=== PATIENT | female | born 1990 | race Caucasian/White ===

== ENCOUNTER 2016-10-20 13:40 | Emergency (ER) | payer SELFPAY ==
[2016-10-20] MEDS ORDERED: OXYCODONE-ACETAMINOPHEN 5-325 MG TABLET PO ONE (15:11)
--- NOTE | 2016-10-20 15:12 | ER Document Report ---
ED Medical Screen (RME) - General Chief Complaint: Flank Pain Stated Complaint: FLANK PAIN Time seen by provider: 15:10 Mode of Arrival: Ambulatory Information source: Patient TRAVEL OUTSIDE OF THE [place] IN LAST 30 DAYS: No - HPI Patient complains to provider of: RIGHT KIDNEY PAIN Onset: Other - 2 DAYS AGO Onset/Duration: Sudden Quality of pain: Sharp, Stabbing Severity: Moderate Pain Level: 4 Associated Symptoms: Other - RIGHT KIDNEY PAIN. denies: Abdominal pain, Diarrhea, Dysuria, Fever, Nausea, Vomiting Exacerbated by: Denies Relieved by: Denies Similar symptoms previously: Yes Recently seen / treated by doctor: Yes Notes: 10/20/16 15:10 RIGHT KIDNEY SURGERY TWO WEEKS AGO TO REMOVE STENT IN [place]. HX KIDNEY STONES. 10/20/16 15:12 - Related Data Smoking: Cigarettes Frequency of alcohol use: None Drug Abuse: None Allergies/Adverse Reactions: No Known Allergies Allergy (Unverified 10/20/16 14:26) Past Medical History - General Last Menstrual Period: 10/09/2016 - Social History Chew tobacco use (# tins/day): Yes Physical Exam - Vital signs Vitals: Temp Pulse Resp BP Pulse Ox 98.2 F 92 16 140/93 H 100 10/20/16 13:56 10/20/16 13:56 10/20/16 13:56 10/20/16 13:56 10/20/16 13:56 Course - Vital Signs Vital signs: Temp Pulse Resp BP Pulse Ox 98.2 F 92 16 140/93 H 100 10/20/16 13:56 10/20/16 13:56 10/20/16 13:56 10/20/16 13:56 10/20/16 13:56
[2016-10-20 16:08] LABS: APPEARANCE,URINE SLIGHTLY-CLOUDY; BILIRUBIN,URINE NEGATIVE (NEGATIVE); GLUCOSE, URINE NEGATIVE (NEGATIVE); KETONES,URINE NEGATIVE (NEGATIVE); LEUKOCYTE ESTERASE,URINE NEGATIVE (NEGATIVE); NITRITE,URINE NEGATIVE (NEGATIVE); PROTEIN,URINE NEGATIVE (NEGATIVE); URINE SPECIFIC GRAVITY 1.027; UROBILINOGEN,URINE NEGATIVE mg/dL (<2.0)
[2016-10-20] MEDS ORDERED: KETOROLAC TROMETHAMINE 60 MG/2 ML SDV IM ONE (19:22)
[2016-10-20] MEDS ORDERED: HYDROCODONE/ACETAMINOPHEN 5-325 MG 6 TAB/DSPK PO PRN (19:22)
--- NOTE | 2016-10-20 19:23 | ER Document Report ---
ED General - General Chief Complaint: Flank Pain Stated Complaint: FLANK PAIN Mode of Arrival: Ambulatory Notes: Patient is a 25-year-old female past history of recurrent nephrolithiasis who presents with 2 days of right flank pain. Described the pain as intermittent, dull, aching pain. Nothing improves or worsens the pain. States this does not feel as intense as prior kidney stones. Of note, she had a nephrostomy tube removed 2 weeks ago. She has not been able to follow-up with her urologist. She denies any nausea, vomiting, diaphoresis, hematuria, or dysuria. No abdominal pain. She states she's had similar symptoms in the past after kidney stone interventions and that her urologist told her that she may have several particles of stone that would continue to pass after the surgery. TRAVEL OUTSIDE OF THE [place] IN LAST 30 DAYS: No - Related Data Allergies/Adverse Reactions: No Known Allergies Allergy (Unverified 10/20/16 14:26) Past Medical History - General Information source: Patient Last Menstrual Period: 10-09-2016 - Social History Smoking Status: Current Some Day Smoker Cigarette use (# per day): Yes - 1-2 cig/day Chew tobacco use (# tins/day): No Frequency of alcohol use: None Drug Abuse: None Lives with: Spouse/Significant other Family History: Reviewed & Not Pertinent Patient has suicidal ideation: No Patient has homicidal ideation: No Renal/ Medical History: Reports: Hx Kidney Stones Psychiatric Medical History: Reports: Hx Attention Deficit Hyperactivity Disorder, Hx Bipolar Disorder Past Surgical History: Reports: Hx Kidney (Renal Surgery) - Immunizations Hx Diphtheria, Pertussis, Tetanus Vaccination: Yes Review of Systems - Review of Systems Notes: Constitutional: Negative for fever. HENT: Negative for sore throat. Eyes: Negative for visual changes. Cardiovascular: Negative for chest pain. Respiratory: Negative for shortness of breath. Gastrointestinal: Negative for abdominal pain, vomiting or diarrhea. Genitourinary: Negative for dysuria. Musculoskeletal: Negative for back pain. Positive for right flank pain Skin: Negative for rash. Neurological: Negative for headaches, weakness or numbness. 10 point ROS negative except as marked above and in HPI. Physical Exam - Vital signs Vitals: Temp Pulse Resp BP Pulse Ox 98.2 F 92 16 140/93 H 100 10/20/16 13:56 10/20/16 13:56 10/20/16 13:56 10/20/16 13:56 10/20/16 13:56 Interpretation: Hypertensive Notes: PHYSICAL EXAMINATION: GENERAL: Well-appearing, well-nourished and in no acute distress. HEAD: Atraumatic, normocephalic. EYES: Pupils equal round and reactive to light, extraocular movements intact, sclera anicteric, conjunctiva are normal. ENT: nares patent, oropharynx clear without exudates. Moist mucous membranes. NECK: Normal range of motion, supple without lymphadenopathy LUNGS: Breath sounds clear to auscultation bilaterally and equal. No wheezes rales or rhonchi. HEART: Regular rate and rhythm without murmurs ABDOMEN: Soft, nontender, normoactive bowel sounds. No guarding, no rebound. No masses appreciated. Mild right CVA tenderness EXTREMITIES: Normal range of motion, no pitting or edema. No cyanosis. NEUROLOGICAL: No focal neurological deficits. Moves all extremities spontaneously and on command. PSYCH: Normal mood, normal affect. SKIN: Warm, Dry, normal turgor, no rashes or lesions noted. Course - Re-evaluation Re-evalutation: 10/21/16 02:33 Patient presents with concerns of intermittent right flank pain but is otherwise very well in appearance. Mild tenderness on palpation. She has normal vital signs, and is otherwise very well appearance on exam. Urinalysis without evidence of pyuria or hematuria.Abdominal exam is benign without any focal tenderness. Vitals are normal at the time of arrival. Based on clinical history and examination I do not suspect an acute appendicitis, tubo- ovarian abscess, related pathology, pelvic inflammatory disease, mesenteric ischemia, or pyelonephritis. I discussed proceeding with CT scan versus watchful waiting at home with close return precautions and the patient with her fianc at the bedside have agreed to avoid CT imaging at this time as she has had many of these in the past and her exam, urine and history are not consistent with infected stone at this time. I encouraged her to follow closely with her urologist.At this time will discharge with return precautions and follow-up recommendations. Verbal discharge instructions given a the bedside and opportunity for questions given. Medication warnings reviewed. Patient is in agreement with this plan and has verbalized understanding of return precautions and the need for primary care follow-up in the next 24-72 hours. - Vital Signs Vital signs: Temp Pulse Resp BP Pulse Ox 98.0 F 91 18 143/88 H 99 10/20/16 20:00 10/20/16 20:00 10/20/16 20:00 10/20/16 20:00 10/20/16 20:00 Discharge - Discharge Clinical Impression: Right flank pain Condition: Good Disposition: HOME, SELF-CARE Additional Instructions: You were seen today for pain in the right low back. The exact cause of this time is unclear but may be related to your prior kidney stones or the muscles in your low back. Your urine is normal and the remainder of your physical evaluation is reassuring at this time. Since we have not done a CT scan today or blood work, I believe it is very important that you return to emergency department immediately for any new or worsening symptoms including vomiting, fever greater than 100.4, chills, body aches, passing out, or any other symptoms that are worrisome to you. Follow-up with your urologist as scheduled and return to the emergency department immediately for any new or worsening symptoms. Forms: Elevated Blood Pressure
[2016-10-20 20:11] VITALS: BP 143/88
== END 2016-10-20 20:08 | disposition home or self-care (01) ==
LOC: ER 13:40
DX: R10.9 Unspecified abdominal pain (principal); F17.210 Nicotine dependence, cigarettes, uncomplicated; Z87.442 Personal history of urinary calculi; Z98.890 Other specified postprocedural states
CPT/HCPCS: 99284; 96372; 81025; 81001; J1885

== ENCOUNTER 2017-05-17 08:10 | Emergency (ER) | payer SELFPAY ==
[2017-05-17] MEDS ORDERED: KETOROLAC TROMETHAMINE 60 MG/2 ML SDV IM ONE (08:21)
--- NOTE | 2017-05-17 08:40 | ER Document Report ---
ED General - General Chief Complaint: Flank Pain Stated Complaint: FLANK PAIN Time Seen by Provider: 05/17/17 08:20 Mode of Arrival: Ambulatory Information source: Patient Notes: 26-year-old presents with complaints of right flank pain just prior to arrival. Patient notes that in the past few months she has had multiple interventions including lithotripsy stent placement for previous stones. Patient has had multiple CAT scans recently. Patient denies any fever chills nausea vomiting or diarrhea. Patient admits to only right flank pain radiating to the groin TRAVEL OUTSIDE OF THE [place] IN LAST 30 DAYS: No - HPI Onset: Just prior to arrival Onset/Duration: Sudden Quality of pain: Achy Severity: Mild Pain Level: 1 Associated symptoms: Other Exacerbated by: Denies Relieved by: Denies Similar symptoms previously: Yes Recently seen / treated by doctor: Yes - Related Data Allergies/Adverse Reactions: morphine Allergy (Verified 05/17/17 08:14) Past Medical History - Social History Smoking Status: Current Every Day Smoker Cigarette use (# per day): Yes Chew tobacco use (# tins/day): No Smoking Education Provided: No Family History: Reviewed & Not Pertinent Renal/ Medical History: Reports: Hx Kidney Stones. Denies: Hx Peritoneal Dialysis Psychiatric Medical History: Reports: Hx Attention Deficit Hyperactivity Disorder, Hx Bipolar Disorder Past Surgical History: Reports: Hx Kidney (Renal Surgery) - Immunizations Hx Diphtheria, Pertussis, Tetanus Vaccination: Yes Review of Systems - Review of Systems Notes: REVIEW OF SYSTEMS: CONSTITUTIONAL : Denies fever, chills, or sweats. Denies recent illness. EENT: Denies eye, ear, throat, or mouth pain or symptoms. Denies nasal or sinus congestion or discharge. Denies throat, tongue, or mouth swelling or difficulty swallowing. CARDIOVASCULAR: Denies chest pain. Denies palpitations or racing or irregular heart beat. Denies ankle edema. RESPIRATORY: Denies cough, cold, or chest congestion. Denies shortness of breath, difficulty breathing, or wheezing. GASTROINTESTINAL: Admits to right flank pain. GENITOURINARY: Denies difficulty urinating, painful urination, burning, frequency, blood in urine, or discharge. MUSCULOSKELETAL: Denies back or neck pain or stiffness. Denies joint pain or swelling. SKIN: Denies rash, lesions or sores. HEMATOLOGIC : Denies easy bruising or bleeding. LYMPHATIC: Denies swollen, enlarged glands. NEUROLOGICAL: Denies confusion or altered mental status. Denies passing out or loss of consciousness. Denies dizziness or lightheadedness. Denies headache. Denies weakness or paralysis or loss of use of either side. Denies problems with gait or speech. Denies sensory loss, numbness, or tingling. Denies seizures. PSYCHIATRIC: Denies anxiety or stress. Denies depression, suicidal ideation, or homicidal ideation. ALL OTHER SYSTEMS REVIEWED AND NEGATIVE. PHYSICAL EXAMINATION: GENERAL: Well-appearing, well-nourished and in no acute distress. HEAD: Atraumatic, normocephalic. EYES: Pupils equal round and reactive to light, extraocular movements intact, conjunctiva are normal. ENT: Nares patent, oropharynx clear without exudates. Moist mucous membranes. NECK: Normal range of motion, supple without lymphadenopathy LUNGS: Breath sounds clear to auscultation bilaterally and equal. No wheezes rales or rhonchi. HEART: Regular rate and rhythm without murmurs ABDOMEN: Soft, nontender, nondistended abdomen. No guarding, no rebound. No masses appreciated. Mild right CVA tenderness Female : deferred Musculoskeletal: Normal range of motion, no pitting or edema. No cyanosis. NEUROLOGICAL: Cranial nerves grossly intact. Normal speech, normal gait. Normal sensory, motor exams PSYCH: Normal mood, normal affect. SKIN: Warm, Dry, normal turgor, no rashes or lesions noted. Dictation was performed using [employer] voice recognition software Physical Exam - Vital signs Vitals: Temp Pulse Resp BP Pulse Ox 97.6 F 79 14 146/96 H 100 05/17/17 08:14 05/17/17 08:14 05/17/17 08:14 05/17/17 08:14 05/17/17 08:14 Course - Re-evaluation Re-evalutation: 05/17/17 08:40 Physical examination is most consistent with a stone, I am concerned about radiation with this patient given that she has had multiple CTs recently, lab work is pending at this time otherwise she does not appear to be in any distress 05/17/17 10:03 Patient does have mild white count elevation which would be consistent with pain , urinalysis otherwise is clear except for calcium oxalate crystals. Which would be consistent with a kidney stone. There is no sign of infection there is no blood in the urine patient has no renal insufficiency therefore I believe imaging is not appropriate at this time with a significant history of imaging he has had in the past. Patient will be given follow-up with primary care physician and with his own urologist Dr. stevenson After performing a Medical Screening Examination, I estimate there is LOW risk for ACUTE APPENDICITIS, BOWEL OBSTRUCTION, ACUTE CHOLECYSTITIS, PERFORATED DIVERTICULITIS, INCARCERATED HERNIA, PANCREATITIS, or PERFORATED ULCER, thus I consider the discharge disposition reasonable. Also, there is no evidence or peritonitis, sepsis, or toxicity. I have reevaluated this patient multiple times and no significant life threatening changes are noted. The patient and I have discussed the diagnosis and risks, and we agree with discharging home with close follow-up with the understanding that symptoms and presentations can change. We also discussed returning to the Emergency Department immediately if new or worsening symptoms occur. We have discussed the symptoms which are most concerning (e.g., bloody stool, fever, changing or worsening pain, intractable vomiting - standard verbal up date) that necessitate immediate return. - Vital Signs Vital signs: Temp Pulse Resp BP Pulse Ox 97.6 F 79 14 146/96 H 100 05/17/17 08:14 05/17/17 08:14 05/17/17 08:14 05/17/17 08:14 05/17/17 08:14 - Laboratory Result Diagrams: 05/17/17 08:45 05/17/17 08:45 Laboratory results interpreted by me: 05/17/17 08:45 WBC 14.3 H Hgb 15.8 H Absolute Neutrophils 8.4 H Discharge - Discharge Clinical Impression: Flank pain, History of kidney stones Condition: Stable Disposition: HOME, SELF-CARE Instructions: Kidney Stone ([facility]) Additional Instructions: Follow up with your physician tomorrow for further care or return to the ED IMMEDIATELY if symptoms worsen or new concerns occur. If you cannot afford to follow up with your primary care physician a list of low cost clinics have been provided at the end of your discharge papers as well. Prescriptions: Hydrocodone/Acetaminophen [[place] 5-325 mg Tablet] 1 tab PO Q6 #14 tablet Metoclopramide HCl [Reglan 10 mg Tablet] 1 - 2 tab PO ASDIR PRN #25 tablet PRN Reason: Tamsulosin HCl [Flomax 0.4 mg Cap.sr] 0.4 mg PO DAILY #7 cap.sr.24h
[2017-05-17 08:58] LABS: ABSOLUTE BASOPHILS # (AUTO) 0.1 10^3/uL (0.0-0.2); ABSOLUTE EOSINOPHILS # (AUTO) 0.4 10^3/uL (0.0-0.6); ABSOLUTE LYMPHOCYTES (AUTO) 4.6 10^3/uL (0.5-4.7); ABSOLUTE MONOCYTES (AUTO) 0.8 10^3/uL (0.1-1.4); ABSOLUTE NEUT (AUTO) 8.4 10^3/uL (1.7-8.2); BASOPHILS % (AUTO) 0.9 % (0-2); EOSINOPHILS % (AUTO) 3.1 % (0-6); HEMATOCRIT 45.8 % (36.0-47.0); HEMOGLOBIN 15.8 g/dL (12.0-15.5); HGB HCT DIFFERENCE 1.6; MEAN CORPUSCULAR HGB CONC 34.6 g/dL (32.0-36.0); MEAN CORPUSCULAR VOLUME 92 fl (80-97); MONOCYTES % (AUTO) 5.5 % (3-13); RED BLOOD COUNT 4.95 10^6/uL (3.72-5.28); RED CELL DISTRIBUTION WIDTH 12.7 % (11.5-14.0); SEGMENTED NEUTROPHILS % (AUTO) 58.5 % (42-78); WHITE BLOOD COUNT 14.3 10^3/uL (4.0-10.5)
[2017-05-17] MEDS ORDERED: NORMAL SALINE 1000 ML 1,000 ML IV ONE (09:04)
[2017-05-17] MEDS ORDERED: ONDANSETRON HCL INJ/PF 4 MG/2 ML SDV IV ONE (09:04)
[2017-05-17 09:17] LABS: ALANINE AMINOTRANSFERASE 17 U/L (9-52); ALBUMIN 4.1 g/dL (3.5-5.0); ALKALINE PHOSPHATASE 76 U/L (38-126); ANION GAP 10 (5-19); APPEARANCE,URINE SLIGHTLY-CLOUDY; ASPARTATE AMINO TRANSFERASE 30 U/L (14-36); BILIRUBIN,DIRECT 0.3 mg/dL (0.0-0.4); BILIRUBIN,TOTAL 0.5 mg/dL (0.2-1.3); BILIRUBIN,URINE NEGATIVE (NEGATIVE); BLOOD UREA NITROGEN 12 mg/dL (7-20); CALCIUM 9.3 mg/dL (8.4-10.2); CALCIUM OXALATE CRYSTALS,URINE RARE /HPF; CARBON DIOXIDE 26 mmol/L (22-30); CHLORIDE 104 mmol/L (98-107); CREATININE RESULT 0.87 mg/dL (0.52-1.25); GLUCOSE 90 mg/dL (75-110); GLUCOSE, URINE NEGATIVE (NEGATIVE); KETONES,URINE NEGATIVE (NEGATIVE); LEUKOCYTE ESTERASE,URINE NEGATIVE (NEGATIVE); NITRITE,URINE NEGATIVE (NEGATIVE); POTASSIUM 4.2 mmol/L (3.6-5.0); PROTEIN,URINE NEGATIVE (NEGATIVE); SODIUM 139.8 mmol/L (137-145); TOTAL PROTEIN 7.2 g/dL (6.3-8.2); URINE SPECIFIC GRAVITY 1.015; UROBILINOGEN,URINE NEGATIVE mg/dL (<2.0)
[2017-05-17 10:04] VITALS: BP 116/79
== END 2017-05-17 10:15 | disposition home or self-care (01) ==
LOC: ER 08:10
DX: R10.9 Unspecified abdominal pain (principal); F17.210 Nicotine dependence, cigarettes, uncomplicated
CPT/HCPCS: 99284; 96372; 96361; 96374; 36415; 85025; 81025; 80053; 81001; J1885; J2405; J7030

== ENCOUNTER 2017-06-13 22:25 | Emergency (ER) | payer SELFPAY ==
[2017-06-13] MEDS ORDERED: KETOROLAC TROMETHAMINE INJ/PF 30 MG/1 ML SDV IV ONE (23:33)
[2017-06-14] MEDS ORDERED: KETOROLAC TROMETHAMINE 60 MG/2 ML SDV IM ONE (00:10)
[2017-06-14] MEDS ORDERED: NORMAL SALINE 1000 ML 1,000 ML IV ONE ×2 (00:11)
--- NOTE | 2017-06-14 00:13 | ER Document Report ---
ED Medical Screen (RME) - General Chief Complaint: Possible Kidney Stone Stated Complaint: FLANK PAIN Time Seen by Provider: 06/14/17 00:09 Notes: 26-year-old female that prefers to be addressed as an male that comes emergency department for chief complaint of bilateral flank pain, worse on the right compared to the left, right flank pain started 2 weeks ago, left flank pain started a few days ago. Reports nausea but denies vomiting. Denies fever. Reports some difficulty and discomfort urinating. Has a urologist, has had previous stents, sees urology in [place]. Denies abdominal pain, denies other areas of pain. TRAVEL OUTSIDE OF THE [place] IN LAST 30 DAYS: No - Related Data Allergies/Adverse Reactions: morphine Allergy (Verified 05/17/17 08:14) Past Medical History Renal/ Medical History: Reports: Hx Kidney Stones. Denies: Hx Peritoneal Dialysis Psychiatric Medical History: Reports: Hx Attention Deficit Hyperactivity Disorder, Hx Bipolar Disorder Past Surgical History: Reports: Hx Kidney (Renal Surgery) - Immunizations Hx Diphtheria, Pertussis, Tetanus Vaccination: Yes Physical Exam - Vital signs Vitals: Temp Pulse Resp BP Pulse Ox 98 F 115 H 20 155/98 H 98 06/13/17 23:07 06/13/17 23:07 06/13/17 23:07 06/13/17 23:07 06/13/17 23:07 - General General appearance: Appears well In distress: None - Back Back: Tender - Tenderness worse on the right compared to left, however no tenderness is noted to be considerable Course - Re-evaluation Re-evalutation: Patient was initially tachycardic, however well-appearing, taking 5-10 mg of oxycodone every 4 hours. - Vital Signs Vital signs: Temp Pulse Resp BP Pulse Ox 98 F 115 H 20 155/98 H 98 06/13/17 23:07 06/13/17 23:07 06/13/17 23:07 06/13/17 23:07 06/13/17 23:07
[2017-06-14] MEDS ORDERED: ONDANSETRON 4 MG TAB.RAPDIS PO ONE (00:15)
[2017-06-14 00:28] LABS: ABSOLUTE BASOPHILS # (AUTO) 0.1 10^3/uL (0.0-0.2); ABSOLUTE EOSINOPHILS # (AUTO) 1.1 10^3/uL (0.0-0.6); ABSOLUTE NEUT (AUTO) 10.4 10^3/uL (1.7-8.2); BASOPHILS % (AUTO) 0.6 % (0-2); EOSINOPHILS % (AUTO) 6.3 % (0-6); HEMATOCRIT 50.8 % (36.0-47.0); HEMOGLOBIN 17.5 g/dL (12.0-15.5); HGB HCT DIFFERENCE 1.7; LYMPHOCYTES % (AUTO) 28.4 % (13-45); MEAN CORPUSCULAR HEMOGLOBIN 32.6 pg (27.0-33.4); MEAN CORPUSCULAR HGB CONC 34.6 g/dL (32.0-36.0); MEAN CORPUSCULAR VOLUME 94 fl (80-97); MONOCYTES % (AUTO) 5.8 % (3-13); RED BLOOD COUNT 5.38 10^6/uL (3.72-5.28); RED CELL DISTRIBUTION WIDTH 12.6 % (11.5-14.0); SEGMENTED NEUTROPHILS % (AUTO) 58.9 % (42-78); WHITE BLOOD COUNT 17.7 10^3/uL (4.0-10.5)
[2017-06-14 00:38] LABS: APPEARANCE,URINE CLOUDY; BILIRUBIN,URINE SMALL (NEGATIVE); CALCIUM OXALATE CRYSTALS,URINE MANY /HPF; GLUCOSE, URINE NEGATIVE (NEGATIVE); KETONES,URINE TRACE mg/dL (NEGATIVE); LEUKOCYTE ESTERASE,URINE TRACE (NEGATIVE); NITRITE,URINE NEGATIVE (NEGATIVE); PROTEIN,URINE 30 mg/dL (NEGATIVE); URINE SPECIFIC GRAVITY 1.035
[2017-06-14 00:48] LABS: ANION GAP 14 (5-19); BLOOD UREA NITROGEN 20 mg/dL (7-20); CALCIUM 10.4 mg/dL (8.4-10.2); CARBON DIOXIDE 23 mmol/L (22-30); CHLORIDE 104 mmol/L (98-107); CREATININE RESULT 1.32 mg/dL (0.52-1.25); GLUCOSE 88 mg/dL (75-110); POTASSIUM 4.3 mmol/L (3.6-5.0); SODIUM 140.8 mmol/L (137-145)
--- NOTE | 2017-06-14 01:31 | RADIOLOGY REPORT (SQ) ---
EXAM DESCRIPTION: [employer] COMPLETED DATE/TIME: 06/14/2017 12:42 am REASON FOR STUDY: flank pain, eval stones and hydro COMPARISON: None. TECHNIQUE: Dynamic and static grayscale images acquired of the kidneys and bladder and recorded on P ACS. Additional selected color Doppler and spectral images recorded. LIMITATIONS: None. FINDINGS: RIGHT KIDNEY: 12.7 cm right kidney with indeterminate 2.0 cm hypoechoic area with possibl e vascularity. LEFT KIDNEY: 11.2 cm. 1.5 cm stone. BLADDER: No masses. Ureteral jet flow not demonstrated, a nonspecific finding. OTHER FINDINGS: No other significant finding. IMPRESSION: 1. Indeterminate 2.0 cm hypoechoic area of the right kidney; further evaluation with co ntrast CT of the kidneys recommended. 2. 1.5 cm left nephrolithiasis. TECHNICAL DOCUMENTATION: JOB ID: [id number] [employer]- All Rights Reserved
[2017-06-14] MEDS ORDERED: FENTANYL CITRATE INJ/PF 100 MCG/2 ML AMPUL IV ONE ×2 (01:36→03:50)
[2017-06-14] MEDS ORDERED: CEFTRIAXONE INJ 1000 MG VIAL IV ONE (01:36)
--- NOTE | 2017-06-14 01:41 | ER Document Report ---
ED General - General Chief Complaint: Possible Kidney Stone Stated Complaint: FLANK PAIN Time Seen by Provider: 06/14/17 00:09 Notes: Patient is a 26-year-old female who presents with complaints of pain in both kidneys. Pain is worse in the left side. Pain does radiate around flank. She does have history of kidney stones and with urostomy tube placed in the past as well as stents. No fevers. Some nausea. No vomiting. No diarrhea. Some difficulty urinating. No other complaints at this time. TRAVEL OUTSIDE OF THE [place] IN LAST 30 DAYS: No - Related Data Allergies/Adverse Reactions: morphine Allergy (Verified 05/17/17 08:14) Past Medical History - Social History Smoking Status: Never Smoker Frequency of alcohol use: None Drug Abuse: None Family History: Reviewed & Not Pertinent Patient has suicidal ideation: No Patient has homicidal ideation: No Renal/ Medical History: Reports: Hx Kidney Stones. Denies: Hx Peritoneal Dialysis Psychiatric Medical History: Reports: Hx Attention Deficit Hyperactivity Disorder, Hx Bipolar Disorder Past Surgical History: Reports: Hx Kidney (Renal Surgery) - Immunizations Hx Diphtheria, Pertussis, Tetanus Vaccination: Yes Review of Systems - Review of Systems Notes: My Normal Review Basic REVIEW OF SYSTEMS: CONSTITUTIONAL : Denies fever, chills, or sweats. Denies recent illness. RESPIRATORY: Denies cough, cold, or chest congestion. Denies shortness of breath, difficulty breathing, or wheezing. GASTROINTESTINAL: Denies abdominal pain. Denies nausea, vomiting, or diarrhea. Denies constipation. Last BM: GENITOURINARY: Back and flank pain. MUSCULOSKELETAL: Denies neck or back pain or joint pain or swelling. SKIN: Denies rash or skin lesions. NEUROLOGICAL: Denies altered mental status or loss of consciousness. Denies headache. Denies weakness or paralysis or loss of use of either side. Denies problems with gait or speech. Denies sensory or motor loss. ALL OTHER SYSTEMS REVIEWED AND NEGATIVE. Physical Exam - Vital signs Vitals: Temp Pulse Resp BP Pulse Ox 98 F 115 H 20 155/98 H 98 06/13/17 23:07 06/13/17 23:07 06/13/17 23:07 06/13/17 23:07 06/13/17 23:07 - Notes Notes: General Appearance: Well nourished, alert, cooperative, no acute distress, moderate obvious discomfort. Vitals: reviewed, See vital signs table. Head: no swelling or tenderness to the head Eyes: PERRL, EOMI, Conjuctiva clear Lungs: No wheezing, No rales, No rhonci, No accessory muscle use, good air exchange bilaterally. Heart: Normal rate, Regular rythm, No murmur, no rub Abdomen: Normal BS, soft, No rigidity, No reproducible abdominal tenderness palpation., No guarding, no rebound, no abdominal masses, no organomegaly Back: Mild pain with tapping over left lower back. No pain over right lower back. Extremities: strength 5/5 in all extremities, good pulses in all extremities, no swelling or tenderness in the extremities, no edema. Skin: warm, dry, appropriate color, no rash Neuro: speech clear, oriented x 3, normal affect, responds appropriately to questions. Course - Re-evaluation Re-evalutation: 06/14/17 04:19 CT scan does not show evidence of intraureteral stone or obstructing stone. Patient will be treated for infection. CT scan does show the lobulated kidney that they request follow-up on. Patient does have a urologist in [place]. I will have her follow-up with her neurologist [place]. I did make a copy of her CT scan on CD so she can take this with her to her appointment. Patient encouraged to return to ER if she is fevers, intractable pain, intractable vomiting, or feels unwell. Patient agrees with plan will be discharged home. Dictation of this chart was performed using voice recognition software; therefore, there may be some unintended grammatical errors. - Vital Signs Vital signs: Temp Pulse Resp BP Pulse Ox 98 F 115 H 20 155/98 H 98 06/13/17 23:07 06/13/17 23:07 06/13/17 23:07 06/13/17 23:07 06/13/17 23:07 - Laboratory Result Diagrams: 06/13/17 23:45 06/13/17 23:45 Laboratory results interpreted by me: 06/13/17 06/13/17 06/13/17 23:45 23:45 23:50 WBC 17.7 H RBC 5.38 H Hgb 17.5 H Hct 50.8 H Eosinophils % 6.3 H Absolute Neutrophils 10.4 H Absolute Lymphocytes 5.0 H Absolute Eosinophils 1.1 H Creatinine 1.32 H Est GFR ( Amer) 58 L Est GFR (Non-Af Amer) 48 L Calcium 10.4 H Urine Protein 30 H Urine Ketones TRACE H Urine Bilirubin SMALL H Urine Urobilinogen 2.0 H Ur Leukocyte Esterase TRACE H Discharge - Discharge Clinical Impression: UTI (urinary tract infection) Qualifiers: Urinary tract infection type: site unspecified Hematuria presence: without hematuria Qualified Code(s): N39.0 - Urinary tract infection, site not specified Condition: Good Disposition: HOME, SELF-CARE Additional Instructions: Your CT scan did not show any evidence of stones in the ureter. Your CT scan did show that your kidney is somewhat lobulated in appearance. This could be resultant of your multiple stones procedures performed on your kidney in the past. It is still very important that you follow-up with your urologist in regard to this. I will print off a copy of your CT scan so he can bring it to her urologist. Please return to ER immediately if you have fevers, vomiting, or worsening of your symptoms. He is call your urologist for close follow-up appointment. Please bring the copy of the CT scan with you to your appointment. Prescriptions: Cephalexin Monohydrate [Keflex 500 mg Capsule] 500 mg PO Q6H 7 Days capsule Oxycodone HCl/Acetaminophen [Percocet 5-325 mg Tablet] 1 tab PO ASDIR PRN #15 tab PRN Reason: Forms: Return to Work
--- NOTE | 2017-06-14 03:34 | RADIOLOGY REPORT (SQ) ---
EXAM DESCRIPTION: CT LTD RENAL STONE PROTOCOL ON COMPLETED DATE/TIME: 06/14/2017 2:44 am REASON FOR STUDY: bilateral flank pain, history of kidney stones COMPARISON: Ultrasound, renal, 06/14/2017. TECHNIQUE: CT scan of the abdomen and pelvis performed without intravenous or oral contrast. Images reviewed with lung, soft tissue, and bone windows. Reconstructed coronal and sagittal MPR images revi ewed. All images stored on PACS. All CT scanners at this facility use dose modulation, iterative reconstruction, and/or weight based d osing when appropriate to reduce radiation dose to as low as reasonably achievable (ALARA). [facility]: Dose Right [facility]: CareDose [facility]: Dose Right [facility]: Teradose 4D [facility]: Smart Siminars RADIATION DOSE: Up-to-date CT equipment and radiation dose reduction techniques were employed. CTDIv ol: 18.6 mGy. DLP: 1003 mGy-cm.mGy. LIMITATIONS: None. FINDINGS: LOWER CHEST: No significant findings. No nodules or infiltrates. NON-CONTRASTED LIVER, SPLEEN, ADRENALS: Evaluation limited by lack of IV contrast. No identified sign ificant masses. PANCREAS: No masses. No peripancreatic inflammatory changes. GALLBLADDER: No identified stones by CT criteria. No inflammatory changes to suggest cholecystitis. RIGHT KIDNEY AND URETER: 2.5 cm indeterminate macro lobulation of the upper pole of the right kidney and recent abnormal right renal sonogram from the same day. 1.0 cm right renal stone. Left-sided ca liceal stone measures up to 0.7 cm. LEFT KIDNEY AND URETER: 1.7 cm exophytic macro lobulation of the upper pole of the left kidney. 1.0 cm exophytic lesion of the inferior pole of the left kidney posteriorly. Assessment limited by lack of IV contrast. No significant calcifications. No hydronephrosis or hydroureter. Small cortical scar. AORTA AND RETROPERITONEUM: No aneurysm. No retroperitoneal masses or adenopathy. BOWEL AND PERITONEAL CAVITY: No obvious masses or inflammatory changes. No free fluid. APPENDIX: Normal. PELVIS, BLADDER, AND ABDOMINAL WALL:No abnormal masses. No free fluid. Bladder normal. BONES: No significant findings. OTHER: No other significant finding. IMPRESSION: 1. Indeterminate bilateral renal lesions/ macro lobulation. Dynamic contrast CT of the kidneys recommended. 2. Bilateral nephrolithiasis, uncomplicated. TECHNICAL DOCUMENTATION: JOB ID: [id number] Quality ID # [id number]: Final reports with documentation of one or more dose reduction techniques (e.g., Au tomated exposure control, adjustment of the mA and/or kV according to patient size, use of iterative reconstruction technique) 2010 [employer]- All Rights Reserved
[2017-06-14 05:42] VITALS: BP 137/91
== END 2017-06-14 04:42 | disposition home or self-care (01) ==
LOC: ER 22:25
DX: N39.0 Urinary tract infection, site not specified (principal); R10.9 Unspecified abdominal pain; R11.0 Nausea; Z87.442 Personal history of urinary calculi
CPT/HCPCS: 96376; 96375; 99284; 96372; 96365; 36415; 87086; 85025; 80048; 81001; 76775; 76380; J1885; S0119; J3010; J0696; J7030

== ENCOUNTER 2017-06-21 23:26 | Emergency (ER) | payer SELFPAY ==
[2017-06-21] MEDS ORDERED: KETOROLAC TROMETHAMINE INJ/PF 30 MG/1 ML SDV IV ONE (23:54)
[2017-06-21] MEDS ORDERED: FENTANYL CITRATE INJ/PF 100 MCG/2 ML AMPUL IV PRN (23:55)
[2017-06-22 00:13] LABS: APPEARANCE,URINE SLIGHTLY-CLOUDY; BILIRUBIN,URINE NEGATIVE (NEGATIVE); CALCIUM OXALATE CRYSTALS,URINE MODERATE /HPF; GLUCOSE, URINE NEGATIVE (NEGATIVE); KETONES,URINE NEGATIVE (NEGATIVE); LEUKOCYTE ESTERASE,URINE NEGATIVE (NEGATIVE); NITRITE,URINE NEGATIVE (NEGATIVE); PROTEIN,URINE 30 mg/dL (NEGATIVE)
--- NOTE | 2017-06-22 00:30 | ER Document Report ---
ED General - General Chief Complaint: Possible Kidney Stone Stated Complaint: BACK PAIN Time Seen by Provider: 06/21/17 23:52 Notes: Patient is a 26-year-old female with past medical history of recurrent kidney stones who presents with bilateral flank pain worse in the left. She was seen here on 14 of June for the same complaints and states that her symptoms have somewhat worsened since that time. She is scheduled to follow-up with her urologist within the next 1 week for further management. She has been taking oxycodone, Toradol and applying heat to the affected areas with moderate improvement in her pain which she does describes a dull, constant aching pain to the bilateral flanks worse in the left. She had denies any associated vomiting, diarrhea or fever. She has not had any hematuria. No significant dysuria. TRAVEL OUTSIDE OF THE [place] IN LAST 30 DAYS: No - Related Data Allergies/Adverse Reactions: aspirin Allergy (Verified 06/21/17 23:35) morphine Allergy (Verified 05/17/17 08:14) Past Medical History - General Information source: Patient - Social History Smoking Status: Current Every Day Smoker Frequency of alcohol use: Occasional Drug Abuse: None Lives with: Spouse/Significant other Family History: Reviewed & Not Pertinent Patient has suicidal ideation: No Patient has homicidal ideation: No Renal/ Medical History: Reports: Hx Kidney Stones. Denies: Hx Peritoneal Dialysis Psychiatric Medical History: Reports: Hx Attention Deficit Hyperactivity Disorder, Hx Bipolar Disorder Past Surgical History: Reports: Hx Kidney (Renal Surgery) - Immunizations Hx Diphtheria, Pertussis, Tetanus Vaccination: Yes Review of Systems - Review of Systems Notes: Constitutional: Negative for fever. HENT: Negative for sore throat. Eyes: Negative for visual changes. Cardiovascular: Negative for chest pain. Respiratory: Negative for shortness of breath. Gastrointestinal: Negative for abdominal pain, vomiting or diarrhea. Positive for bilateral flank pain. Genitourinary: Negative for dysuria. Musculoskeletal: Negative for back pain. Skin: Negative for rash. Neurological: Negative for headaches, weakness or numbness. 10 point ROS negative except as marked above and in HPI. Physical Exam - Vital signs Vitals: Temp Pulse Resp BP Pulse Ox 98 F 110 H 20 137/92 H 99 06/21/17 23:31 06/21/17 23:31 06/21/17 23:31 06/21/17 23:06/21/17 23:31 Interpretation: Tachycardic Notes: PHYSICAL EXAMINATION: GENERAL: Well-appearing, well-nourished and in no acute distress. HEAD: Atraumatic, normocephalic. EYES: Pupils equal round and reactive to light, extraocular movements intact, sclera anicteric, conjunctiva are normal. ENT: nares patent, oropharynx clear without exudates. Moderately dry mucous membranes. NECK: Normal range of motion, supple without lymphadenopathy LUNGS: Breath sounds clear to auscultation bilaterally and equal. No wheezes rales or rhonchi. HEART: Regular rate and rhythm without murmurs ABDOMEN: Soft, nontender, normoactive bowel sounds. No guarding, no rebound. No masses appreciated. Bilateral CVA tenderness worse on the left. EXTREMITIES: Normal range of motion, no pitting or edema. No cyanosis. NEUROLOGICAL: No focal neurological deficits. Moves all extremities spontaneously and on command. PSYCH: Normal mood, normal affect. SKIN: Warm, Dry, normal turgor, no rashes or lesions noted. Course - Re-evaluation Re-evalutation: 06/22/17 00:29 Patient presents with ongoing bilateral flank pain, just seen on the for the same head CT at that time that did not demonstrate any evidence of acute urolithiasis although did show multiple kidney stones bilaterally that were nonobstructing and remained in the kidney. Her urinalysis today does not show any evidence of a associated kidney infection. Will obtain basic labs and further kidney function is not worsening as it was mildly elevated at the last visit. She is scheduled to see her outpatient neurologist next week. Will provide pain control and reassess. Her clinical history is not consistent with an acute pulmonary embolus, acute appendicitis, biliary pathology, bowel obstruction or mesenteric ischemia. 06/22/17 01:12 Laboratories all are improved from the visit on the . Pain has been controlled here in the emergency department. Repeat abdominal exam remains benign. I do not see any indication for repeat CT as patient just had 1 of these completed less than a week ago. Patient is in agreement with this plan. At this time will discharge with return precautions and follow-up recommendations. Verbal discharge instructions given a the bedside and opportunity for questions given. Medication warnings reviewed. Patient is in agreement with this plan and has verbalized understanding of return precautions and the need for follow-up with her urologist at her earliest ability. - Vital Signs Vital signs: Temp Pulse Resp BP Pulse Ox 98.1 F 88 14 132/70 H 99 06/22/17 02:10 06/22/17 02:10 06/22/17 02:10 06/22/17 02:10 06/22/17 02:10 - Laboratory Result Diagrams: 06/22/17 00:35 06/22/17 00:35 Laboratory results interpreted by me: 06/21/17 06/22/17 06/22/17 23:43 00:35 00:35 WBC 14.1 H RBC 5.34 H Hgb 17.3 H Hct 50.0 H Est GFR (Non-Af Amer) 53 L Urine Protein 30 H Urine Blood LARGE H Urine Urobilinogen 2.0 H Discharge - Discharge Clinical Impression: Bilateral flank pain Condition: Good Disposition: HOME, SELF-CARE Additional Instructions: Your laboratories are all improved from when you were last here on the 14 of June. Please return if you develop fever, persistent vomiting, or any other symptoms that are concerning to you. For your pain: Take ibuprofen 600 mg and acetaminophen 1000 mg every 6 hours together as needed for pain. Follow-up with your urologist as scheduled.
[2017-06-22 00:54] LABS: ABSOLUTE BASOPHILS # (AUTO) 0.1 10^3/uL (0.0-0.2); ABSOLUTE EOSINOPHILS # (AUTO) 0.6 10^3/uL (0.0-0.6); ABSOLUTE LYMPHOCYTES (AUTO) 4.5 10^3/uL (0.5-4.7); ABSOLUTE MONOCYTES (AUTO) 0.8 10^3/uL (0.1-1.4); ABSOLUTE NEUT (AUTO) 8.1 10^3/uL (1.7-8.2); BASOPHILS % (AUTO) 0.7 % (0-2); EOSINOPHILS % (AUTO) 4.3 % (0-6); HEMOGLOBIN 17.3 g/dL (12.0-15.5); HGB HCT DIFFERENCE 1.9; MEAN CORPUSCULAR HEMOGLOBIN 32.5 pg (27.0-33.4); MEAN CORPUSCULAR HGB CONC 34.7 g/dL (32.0-36.0); MEAN CORPUSCULAR VOLUME 94 fl (80-97); MONOCYTES % (AUTO) 5.4 % (3-13); RED BLOOD COUNT 5.34 10^6/uL (3.72-5.28); RED CELL DISTRIBUTION WIDTH 13.3 % (11.5-14.0); SEGMENTED NEUTROPHILS % (AUTO) 57.6 % (42-78); WHITE BLOOD COUNT 14.1 10^3/uL (4.0-10.5)
[2017-06-22 01:08] LABS: ANION GAP 14 (5-19); BLOOD UREA NITROGEN 13 mg/dL (7-20); CALCIUM 10.2 mg/dL (8.4-10.2); CARBON DIOXIDE 26 mmol/L (22-30); CHLORIDE 105 mmol/L (98-107); GLUCOSE 86 mg/dL (75-110); POTASSIUM 4.4 mmol/L (3.6-5.0); SODIUM 144.8 mmol/L (137-145)
[2017-06-22 02:11] VITALS: BP 132/70
== END 2017-06-22 02:11 | disposition home or self-care (01) ==
LOC: ER 23:26
DX: R10.9 Unspecified abdominal pain (principal); R00.0 Tachycardia, unspecified; Z87.442 Personal history of urinary calculi; Z98.890 Other specified postprocedural states; F17.200 Nicotine dependence, unspecified, uncomplicated; Z88.6 Allergy status to analgesic agent; Z88.5 Allergy status to narcotic agent
CPT/HCPCS: 99283; 96374; 96375; 36415; 85025; 81025; 80048; 81001; J3010; J1885

== ENCOUNTER 2017-06-26 21:52 | Emergency (ER) | payer SELFPAY ==
--- NOTE | 2017-06-26 22:35 | ER Document Report ---
ED GI/ - General Mode of Arrival: Ambulatory Information source: Patient TRAVEL OUTSIDE OF THE [place] IN LAST 30 DAYS: No - HPI Patient complains to provider of: Flank pain <LUCA MESA - Last Filed: 06/27/17 01:08> <ASHELYARDHA ANN - Last Filed: 06/27/17 10:22> - General Chief Complaint: Possible Kidney Stone Stated Complaint: FLANK PAIN - HPI Notes: Patient is a 26 year old female presenting to the emergency department for left flank pain and nausea. Patient has a history of kidney stones and states that she knows she has some present in her left kidney. Patient was seen in this department for similar symptoms on 06/14/17 and 06/22/17. Patient was told to follow up with Urology. Patient states she is supposed to have surgery this week to have stent placed. Patient was on Cipro but she is not taking this anymore. Patient is taking Flagyl, oxycodone, and ketorolac. Patient has had a temperature of 100.1 F earlier today. Patient denies any abdominal pain. Patient has a history of COPD and has an increased cough over the past couple of days. (LUCA MESA) - Related Data Allergies/Adverse Reactions: aspirin Allergy (Verified 06/26/17 21:53) morphine Allergy (Verified 06/26/17 21:53) Past Medical History - General Information source: Patient - Social History Smoking Status: Current Every Day Smoker Cigarette use (# per day): Yes Chew tobacco use (# tins/day): No Smoking Education Provided: No Frequency of alcohol use: None Drug Abuse: None Family History: None Patient has suicidal ideation: No Patient has homicidal ideation: No Pulmonary Medical History: Reports: Hx COPD Renal/ Medical History: Reports: Hx Kidney Stones Psychiatric Medical History: Reports: Hx Attention Deficit Hyperactivity Disorder, Hx Bipolar Disorder Past Surgical History: Reports: Hx Kidney (Renal Surgery), Hx Urostomy - Immunizations Hx Diphtheria, Pertussis, Tetanus Vaccination: Yes <LUCA MESA - Last Filed: 06/27/17 01:08> Review of Systems - Review of Systems Constitutional: See HPI EENT: No symptoms reported Cardiovascular: No symptoms reported Respiratory: See HPI, Cough Gastrointestinal: See HPI, Nausea, Poor appetite. denies: Abdominal pain Genitourinary: See HPI, Flank pain Female Genitourinary: No symptoms reported Musculoskeletal: No symptoms reported Skin: No symptoms reported Hematologic/Lymphatic: No symptoms reported Neurological/Psychological: No symptoms reported -: Yes All other systems reviewed and negative <LUCA MESA - Last Filed: 06/27/17 01:08> Physical Exam - Vital signs Interpretation: Normal <LUCA MESA - Last Filed: 06/27/17 01:08> <RADHA LUND - Last Filed: 06/27/17 10:22> - Vital signs Vitals: Temp Pulse Resp BP Pulse Ox 98.2 F 87 18 131/84 H 100 06/26/17 21:53 06/26/17 21:53 06/26/17 21:53 06/26/17 21:53 06/26/17 21:53 - Notes Notes: GENERAL: Alert, interacts well, appears uncomfortable. Mild distress. HEAD: Normocephalic, atraumatic. EYES: Appear normal. Pupils equal, round, and reactive to light. ENT: Moist mucus membranes, tongue midline. NECK: Full range of motion. Supple. Trachea midline. LUNGS: Clear to auscultation bilaterally, no wheezes, rales, or rhonchi. No respiratory distress. HEART: Regular rate and rhythm. No murmurs, gallops, or rubs. ABDOMEN: Obese. Soft, non-tender. Non-distended. Normal bowel sounds. BACK: Left CVA tenderness to percussion. EXTREMITIES: Moves all 4 extremities spontaneously. Normal strength. No edema. NEUROLOGICAL: Alert and oriented x3. Normal speech. No focal neurological deficits. GCS 15. PSYCH: Normal affect, normal mood. SKIN: Warm, dry, normal turgor. No rashes or lesions noted. (LUCA MESA) Course - Laboratory Result Diagrams: 06/26/17 22:41 06/26/17 22:41 <LUCA MESA - Last Filed: 06/27/17 01:08> - Laboratory Result Diagrams: 06/26/17 22:41 06/26/17 22:41 - Diagnostic Test Radiology reviewed: Reports reviewed <RADHA LUND - Last Filed: 06/27/17 10:22> - Re-evaluation Re-evalutation: 06/26/17 23:59 Reevaluated patient at this time. Patient was updated on current lab work/ results. 06/27/17 00:55 Reevaluated patient at this time. Patient's pain is controlled and she will follow up with her Urologist as planned. (LUCA MESA) 06/27/17 Patient with left flank rodriguez and WBCs in urine. Patient states that she had a fever at home. Patient will be started on Rocephin and given a prescription for Cipro which she has been on at home before. Patient will also be discharged home with pain medication and is to follow-up with her urologist this week. (RADHA LUND) - Vital Signs Vital signs: Temp Pulse Resp BP Pulse Ox 97.4 F 79 16 135/92 H 94 06/27/17 01:42 06/27/17 01:42 06/27/17 01:42 06/27/17 01:42 06/27/17 01:42 - Laboratory Laboratory results interpreted by me: 06/26/17 06/26/17 06/26/17 22:41 22:41 22:58 WBC 12.4 H Hgb 16.4 H Eosinophils % 7.3 H Absolute Eosinophils 0.9 H Chloride 108 H Urine Urobilinogen 2.0 H Ur Leukocyte Esterase TRACE H Discharge <LUCA MESA - Last Filed: 06/27/17 01:08> <RADHA LUND - Last Filed: 06/27/17 10:22> - Discharge Clinical Impression: Left flank pain UTI (urinary tract infection) Qualifiers: Urinary tract infection type: site unspecified Hematuria presence: without hematuria Qualified Code(s): N39.0 - Urinary tract infection, site not specified Condition: Stable Disposition: HOME, SELF-CARE Instructions: Kidney Stone ([facility]), Urinary Tract Infection ([facility]) Additional Instructions: Please follow-up with your urologist this week as scheduled. Prescriptions: Oxycodone HCl/Acetaminophen [Percocet 5-325 mg Tablet] 1 - 2 tab PO Q6HP PRN # 25 tablet PRN Reason: Ciprofloxacin HCl [Cipro 500 mg Tablet] 500 mg PO BID #28 tablet Scribe Attestation: 06/27/17 10:17 I personally performed the services described in the documentation, reviewed and edited the documentation which was dictated to the scribe in my presence, and it accurately records my words and actions. (RADHA LUND) Scribe Documentation - Scribe Written by Scribe:: Tari Brownlee 06/27/2017 1:05 acting as scribe for :: Ashely <LUCA MESA - Last Filed: 06/27/17 01:08>
[2017-06-26 22:58] LABS: ABSOLUTE BASOPHILS # (AUTO) 0.1 10^3/uL (0.0-0.2); ABSOLUTE EOSINOPHILS # (AUTO) 0.9 10^3/uL (0.0-0.6); ABSOLUTE LYMPHOCYTES (AUTO) 3.5 10^3/uL (0.5-4.7); ABSOLUTE MONOCYTES (AUTO) 0.6 10^3/uL (0.1-1.4); ABSOLUTE NEUT (AUTO) 7.4 10^3/uL (1.7-8.2); BASOPHILS % (AUTO) 0.6 % (0-2); EOSINOPHILS % (AUTO) 7.3 % (0-6); HEMOGLOBIN 16.4 g/dL (12.0-15.5); HGB HCT DIFFERENCE 2.2; LYMPHOCYTES % (AUTO) 27.9 % (13-45); MEAN CORPUSCULAR HEMOGLOBIN 32.8 pg (27.0-33.4); MEAN CORPUSCULAR HGB CONC 34.9 g/dL (32.0-36.0); MEAN CORPUSCULAR VOLUME 94 fl (80-97); MONOCYTES % (AUTO) 4.6 % (3-13); RED BLOOD COUNT 5.01 10^6/uL (3.72-5.28); RED CELL DISTRIBUTION WIDTH 12.4 % (11.5-14.0); SEGMENTED NEUTROPHILS % (AUTO) 59.6 % (42-78); WHITE BLOOD COUNT 12.4 10^3/uL (4.0-10.5)
[2017-06-26 23:05] LABS: ALANINE AMINOTRANSFERASE 21 U/L (9-52); ALBUMIN 4.5 g/dL (3.5-5.0); ALKALINE PHOSPHATASE 80 U/L (38-126); ANION GAP 10 (5-19); ASPARTATE AMINO TRANSFERASE 18 U/L (14-36); BILIRUBIN,DIRECT 0.4 mg/dL (0.0-0.4); BILIRUBIN,TOTAL 0.8 mg/dL (0.2-1.3); BLOOD UREA NITROGEN 18 mg/dL (7-20); CALCIUM 10.2 mg/dL (8.4-10.2); CARBON DIOXIDE 26 mmol/L (22-30); CHLORIDE 108 mmol/L (98-107); CREATININE RESULT 1.05 mg/dL (0.52-1.25); GLUCOSE 98 mg/dL (75-110); SODIUM 144.1 mmol/L (137-145); TOTAL PROTEIN 7.7 g/dL (6.3-8.2)
[2017-06-26] MEDS ORDERED: ONDANSETRON HCL INJ/PF 4 MG/2 ML SDV IV ONE (23:22)
[2017-06-26] MEDS ORDERED: HYDROMORPHONE HCL INJ/PF 2 MG/ML AMPULE IV ONE (23:22)
[2017-06-26 23:36] LABS: APPEARANCE,URINE CLOUDY; BILIRUBIN,URINE NEGATIVE (NEGATIVE); CALCIUM OXALATE CRYSTALS,URINE TOO NUMEROUS TO CNT /HPF; GLUCOSE, URINE NEGATIVE (NEGATIVE); KETONES,URINE NEGATIVE (NEGATIVE); LEUKOCYTE ESTERASE,URINE TRACE (NEGATIVE); NITRITE,URINE NEGATIVE (NEGATIVE); PROTEIN,URINE NEGATIVE (NEGATIVE); URINE SPECIFIC GRAVITY 1.028
[2017-06-27] MEDS ORDERED: HYDROMORPHONE HCL INJ/PF 2 MG/ML AMPULE IV ONE (00:07)
[2017-06-27] MEDS ORDERED: CEFTRIAXONE INJ 1000 MG VIAL IV ONE (00:07)
[2017-06-27] MEDS ORDERED: HYDROCODONE/ACETAMINOPHEN 5-325 MG 6 TAB/DSPK PO PRN (00:58)
[2017-06-27 01:47] VITALS: BP 135/92
== END 2017-06-27 01:46 | disposition home or self-care (01) ==
LOC: ER 21:52
DX: N39.0 Urinary tract infection, site not specified (principal); R10.9 Unspecified abdominal pain; R11.0 Nausea; F17.210 Nicotine dependence, cigarettes, uncomplicated; J44.9 Chronic obstructive pulmonary disease, unspecified; E66.9 Obesity, unspecified; Z87.442 Personal history of urinary calculi; Z88.6 Allergy status to analgesic agent
CPT/HCPCS: 96376; 99284; 96375; 96365; 36415; 87086; 85025; 81025; 80053; 81001; J1170 ×2; J0696; J2405

== ENCOUNTER 2017-06-29 21:02 | Emergency (ER) | payer SELFPAY ==
[2017-06-29 21:56] LABS: ABSOLUTE BASOPHILS # (AUTO) 0.1 10^3/uL (0.0-0.2); ABSOLUTE EOSINOPHILS # (AUTO) 0.7 10^3/uL (0.0-0.6); ABSOLUTE LYMPHOCYTES (AUTO) 4.5 10^3/uL (0.5-4.7); ABSOLUTE MONOCYTES (AUTO) 0.8 10^3/uL (0.1-1.4); EOSINOPHILS % (AUTO) 4.7 % (0-6); HEMATOCRIT 42.6 % (36.0-47.0); HGB HCT DIFFERENCE 2.4; LYMPHOCYTES % (AUTO) 31.8 % (13-45); MEAN CORPUSCULAR HEMOGLOBIN 33.3 pg (27.0-33.4); MEAN CORPUSCULAR HGB CONC 35.1 g/dL (32.0-36.0); MEAN CORPUSCULAR VOLUME 95 fl (80-97); MONOCYTES % (AUTO) 5.9 % (3-13); RED BLOOD COUNT 4.48 10^6/uL (3.72-5.28); RED CELL DISTRIBUTION WIDTH 12.7 % (11.5-14.0); SEGMENTED NEUTROPHILS % (AUTO) 56.6 % (42-78); WHITE BLOOD COUNT 14.2 10^3/uL (4.0-10.5)
[2017-06-29 22:06] LABS: APPEARANCE,URINE CLOUDY; BILIRUBIN,URINE NEGATIVE (NEGATIVE); GLUCOSE, URINE NEGATIVE (NEGATIVE); KETONES,URINE NEGATIVE (NEGATIVE); LEUKOCYTE ESTERASE,URINE LARGE (NEGATIVE); NITRITE,URINE NEGATIVE (NEGATIVE); PROTEIN,URINE 100 mg/dL (NEGATIVE); URINE SPECIFIC GRAVITY 1.021; UROBILINOGEN,URINE NEGATIVE mg/dL (<2.0)
[2017-06-29 22:16] LABS: ALANINE AMINOTRANSFERASE 18 U/L (9-52); ALBUMIN 4.1 g/dL (3.5-5.0); ALKALINE PHOSPHATASE 72 U/L (38-126); ANION GAP 9 (5-19); ASPARTATE AMINO TRANSFERASE 12 U/L (14-36); BILIRUBIN,DIRECT 0.4 mg/dL (0.0-0.4); BILIRUBIN,TOTAL 0.5 mg/dL (0.2-1.3); BLOOD UREA NITROGEN 16 mg/dL (7-20); CALCIUM 9.9 mg/dL (8.4-10.2); CARBON DIOXIDE 26 mmol/L (22-30); CHLORIDE 106 mmol/L (98-107); CREATININE RESULT 1.27 mg/dL (0.52-1.25); GLUCOSE 100 mg/dL (75-110); LIPASE 52.9 U/L (23-300); POTASSIUM 4.1 mmol/L (3.6-5.0); SODIUM 141.2 mmol/L (137-145); TOTAL PROTEIN 6.7 g/dL (6.3-8.2)
[2017-06-29] MEDS ORDERED: HYDROMORPHONE HCL INJ/PF 2 MG/ML AMPULE IV ONE (22:46)
--- NOTE | 2017-06-29 22:50 | ER Document Report ---
ED GI/ - General Chief Complaint: Possible Kidney Stone Stated Complaint: BACK PAIN Time Seen by Provider: 06/29/17 22:24 Mode of Arrival: Ambulatory Information source: Patient Notes: Patient states that she had a ureteral stent placed on the left side yesterday in [place]. Patient states that she has a long history of kidney stones. Patient states that she was given a prescription for Percocet, Flomax, Zofran and Cipro. Patient states that she has had increased flank pain on the left side with nausea and vomiting 1 episode. Patient denies any fever or diarrhea. Patient states she has noticed some hematuria. Patient states that she is supposed to remove her stent in 6 days. TRAVEL OUTSIDE OF THE [place] IN LAST 30 DAYS: No - HPI Patient complains to provider of: Abdominal pain, Flank pain, Hematuria Onset: This morning Timing/Duration: Worse Quality of pain: Sharp Pain Level: 5 Location: LLQ, Left flank Vaginal bleeding (Compared to normal period): None Associated symptoms: Hematuria, Nausea, Vomiting. denies: Dysuria, Fever, Loss of appetite, Urinary hesitancy, Urinary frequency, Urinary retention, Urinary urgency, Vaginal discharge Exacerbated by: Denies Relieved by: Denies Similar symptoms previously: Yes Recently seen / treated by doctor: Yes - Related Data Allergies/Adverse Reactions: aspirin Allergy (Verified 06/29/17 21:19) morphine Allergy (Verified 06/29/17 21:19) Past Medical History - General Information source: Patient - Social History Smoking Status: Current Every Day Smoker Chew tobacco use (# tins/day): No Frequency of alcohol use: Occasional Drug Abuse: None Occupation: none Family History: None Patient has suicidal ideation: No Patient has homicidal ideation: No Pulmonary Medical History: Reports: Hx Bronchitis Renal/ Medical History: Reports: Hx Kidney Stones. Denies: Hx Peritoneal Dialysis Psychiatric Medical History: Reports: Hx Attention Deficit Hyperactivity Disorder, Hx Bipolar Disorder Past Surgical History: Reports: Hx Kidney (Renal Surgery), Hx Urostomy - Immunizations Hx Diphtheria, Pertussis, Tetanus Vaccination: Yes Review of Systems - Review of Systems Constitutional: No symptoms reported. denies: Fever, Recent illness EENT: No symptoms reported Cardiovascular: No symptoms reported Respiratory: No symptoms reported. denies: Cough, Short of breath Gastrointestinal: Abdominal pain, Nausea, Vomiting. denies: Diarrhea Genitourinary: Flank pain, Hematuria. denies: Dysuria, Frequency Female Genitourinary: No symptoms reported Musculoskeletal: Back pain Skin: No symptoms reported Hematologic/Lymphatic: No symptoms reported Neurological/Psychological: No symptoms reported Physical Exam - Vital signs Vitals: Pulse Resp BP Pulse Ox 80 18 146/71 H 100 06/30/17 02:36 06/30/17 02:36 06/30/17 02:36 06/30/17 02:36 - General General appearance: Appears well, Alert In distress: None - Respiratory Respiratory status: No respiratory distress Chest status: Nontender Breath sounds: Normal. No: Rales, Rhonchi, Stridor, Wheezing Chest palpation: Normal - Cardiovascular Rhythm: Regular Heart sounds: S1 appreciated, S2 appreciated Murmur: No - Abdominal Inspection: Obese Distension: No distension Bowel sounds: Normal Tenderness: Tender - LLQ Organomegaly: No organomegaly - Back Back: CVA tenderness - left - Extremities General upper extremity: Normal inspection, Normal ROM General lower extremity: Normal inspection, Normal ROM - Neurological Neuro grossly intact: Yes Cognition: Normal [place] Coma Scale Eye Opening: Spontaneous [place] Coma Scale Verbal: Oriented [place] Coma Scale Motor: Obeys Commands [place] Coma Scale Total: 15 - Psychological Associated symptoms: Normal affect, Normal mood - Skin Skin Temperature: Warm Skin Moisture: Dry Skin Color: Normal Course - Re-evaluation Re-evalutation: 06/29/17 23:[address] Quiros who advises renal U/S, and agrees with plan for consultation with her urologist as well as IV dose of Rocephin. 06/30/17 01:26 Call placed to transfer center at [facility] for consultation. 06/30/17 01:[address] Simon at [facility] who is on- call for urology, discussed patient presentation exam findings as well as diagnostic test results. Recommends follow-up in the office tomorrow. Advises culturing urine. No additional antibiotics advised at this time. Dr. Simon states these are typical findings for someone having recently had this procedure. - Vital Signs Vital signs: Temp Pulse Resp BP Pulse Ox 80 18 146/71 H 100 06/30/17 02:36 06/30/17 02:36 06/30/17 02:36 06/30/17 02:36 - Laboratory Result Diagrams: 06/29/17 21:40 06/29/17 21:40 Laboratory results interpreted by me: 06/29/17 06/29/17 06/29/17 21:40 21:40 21:40 WBC 14.2 H Absolute Eosinophils 0.7 H Creatinine 1.27 H Est GFR (Non-Af Amer) 50 L AST 12 L Urine Protein 100 H Urine Blood LARGE H Ur Leukocyte Esterase LARGE H 06/30/17 03:09 Labs- Entire Visit 06/29/17 06/29/17 06/29/17 21:40 21:40 21:40 WBC 14.2 H RBC 4.48 Hgb 15.0 Hct 42.6 MCV 95 MCH 33.3 MCHC 35.1 RDW 12.7 Plt Count 241 Seg Neutrophils % 56.6 Lymphocytes % 31.8 Monocytes % 5.9 Eosinophils % 4.7 Basophils % 1.0 Absolute Neutrophils 8.0 Absolute Lymphocytes 4.5 Absolute Monocytes 0.8 Absolute Eosinophils 0.7 H Absolute Basophils 0.1 Sodium 141.2 Potassium 4.1 Chloride 106 Carbon Dioxide 26 Anion Gap 9 BUN 16 Creatinine 1.27 H Est GFR ( Amer) > 60 Est GFR (Non-Af Amer) 50 L Glucose 100 Calcium 9.9 Total Bilirubin 0.5 Direct Bilirubin 0.4 Indirect Bilirubin Not Reportable Neonat Total Bilirubin Not Reportable AST 12 L ALT 18 Alkaline Phosphatase 72 Total Protein 6.7 Albumin 4.1 Lipase 52.9 Serum HCG, Qual NEGATIVE Urine Color Urine Appearance Urine pH Ur Specific [place] Urine Protein Urine Glucose (UA) Urine Ketones Urine Blood Urine Nitrite Urine Bilirubin Urine Urobilinogen Ur Leukocyte Esterase Urine WBC (Auto) Urine RBC (Auto) Squamous Epi Cells Auto Urine Mucus (Auto) Urine Ascorbic Acid 06/29/17 21:40 WBC RBC Hgb Hct MCV MCH MCHC RDW Plt Count Seg Neutrophils % Lymphocytes % Monocytes % Eosinophils % Basophils % Absolute Neutrophils Absolute Lymphocytes Absolute Monocytes Absolute Eosinophils Absolute Basophils Sodium Potassium Chloride Carbon Dioxide Anion Gap BUN Creatinine Est GFR ( Amer) Est GFR (Non-Af Amer) Glucose Calcium Total Bilirubin Direct Bilirubin Indirect Bilirubin Neonat Total Bilirubin AST ALT Alkaline Phosphatase Total Protein Albumin Lipase Serum HCG, Qual Urine Color RED Urine Appearance CLOUDY Urine pH 6.0 Ur Specific [place] 1.021 Urine Protein 100 H Urine Glucose (UA) NEGATIVE Urine Ketones NEGATIVE Urine Blood LARGE H Urine Nitrite NEGATIVE Urine Bilirubin NEGATIVE Urine Urobilinogen NEGATIVE Ur Leukocyte Esterase LARGE H Urine WBC (Auto) >182 Urine RBC (Auto) >182 Squamous Epi Cells Auto 2 Urine Mucus (Auto) OCC Urine Ascorbic Acid NEGATIVE - Diagnostic Test Radiology reviewed: Reports reviewed Discharge - Discharge Clinical Impression: Left flank pain, hx recent ureteral stent placement Condition: Stable Disposition: HOME, SELF-CARE Instructions: Kidney Stone ([facility]) Additional Instructions: Return immediately for any new or worsening symptoms Follow-up with your urologist later today, Dr Trujillo, call their office first thing in the morning urine culture is pending, we will call if you need any different treatment
[2017-06-29] MEDS ORDERED: CEFTRIAXONE 1 GM/D5W RTU 1 GM/50 ML RTUPB IV ONE (23:00)
[2017-06-30] MEDS ORDERED: HYDROMORPHONE HCL INJ/PF 2 MG/ML AMPULE IV ONE (00:51)
--- NOTE | 2017-06-30 01:03 | RADIOLOGY REPORT (SQ) ---
EXAM DESCRIPTION: U/S RETROPERITON (RENAL/AORTA) COMPLETED DATE/TIME: 06/30/2017 12:37 am REASON FOR STUDY: left flank pain,renal stent placed yesterday COMPARISON: CT, 06/14/2017. TECHNIQUE: Dynamic and static grayscale images acquired of the kidneys and bladder and recorded on P ACS. Additional selected color Doppler and spectral images recorded. LIMITATIONS: None. FINDINGS: RIGHT KIDNEY: 12.6 cm, 1.1 cm renal stone, and 2.0 cm indeterminate hypoechoic lesion or m acro lobulation of of the upper pole. LEFT KIDNEY: 11.4 cm, 0.8 cm dilated left renal pelvis, 1.3 cm stone, cortical scar, and indetermina te 2.7 cm isoechoic circumscribed lesion or macro lobulation of the upper pole. MK possible stent ma terial is visualized at the posterior aspect of the collecting system in left kidney. BLADDER: Left ureteral stent. Bilateral ureteral jet flow demonstrated. OTHER FINDINGS: No other significant finding. IMPRESSION: Likely adequate a left ureteral stent is partially visualized. 0.8 cm dilated left dayne l pelvis. Indeterminate bilateral renal lesions and/or macro lobulation measure up to 2.7 cm on the left and 2.0 cm on the right. Cannot exclude neoplasm. Recommend dynamic contrast CT or MRI of the kidneys. TECHNICAL DOCUMENTATION: JOB ID: [id number] [employer]- All Rights Reserved
[2017-06-30 02:37] VITALS: BP 146/71
== END 2017-06-30 02:36 | disposition home or self-care (01) ==
LOC: ER 21:02
DX: M54.9 Dorsalgia, unspecified (principal); R11.2 Nausea with vomiting, unspecified; R31.9 Hematuria, unspecified; F17.200 Nicotine dependence, unspecified, uncomplicated; Z88.6 Allergy status to analgesic agent; Z98.890 Other specified postprocedural states; Z87.442 Personal history of urinary calculi
CPT/HCPCS: 96376; 99284; 96374; 96375; 36415; 87086; 83690; 84703; 85025; 80053; 81001; 76770; J1170 ×2; J0696

== ENCOUNTER 2017-07-01 01:13 | Emergency (ER) | payer SELFPAY ==
[2017-07-01] MEDS ORDERED: NORMAL SALINE 1000 ML 1,000 ML IV ONE (02:16)
[2017-07-01] MEDS ORDERED: KETOROLAC TROMETHAMINE INJ/PF 30 MG/1 ML SDV IV ONE (02:16)
--- NOTE | 2017-07-01 02:21 | ER Document Report ---
ED GI/ - General Chief Complaint: LEFT FLANK PAIN Stated Complaint: FLANK PAIN Time Seen by Provider: 07/01/17 02:15 Mode of Arrival: Ambulatory Information source: Patient Notes: Patient is a 26-year-old female who presents to the ER today for left flank pain. Patient just had a stent placed in the left kidney 3 days ago for kidney stones and is coming in complaining of worsening pain. Patient states that she has had stents before and that this hurts worse, is sharp in nature. She denies any burning with urination, fever, chills, blood in her urine, radiation of the pain into the abdomen. She does have a urologist but could not get an appointment until early next week. TRAVEL OUTSIDE OF THE [place] IN LAST 30 DAYS: No - Related Data Allergies/Adverse Reactions: aspirin Allergy (Verified 06/29/17 21:19) morphine Allergy (Verified 06/29/17 21:19) Past Medical History - General Information source: Patient - Social History Smoking Status: Unknown if Ever Smoked Family History: None Patient has suicidal ideation: No Patient has homicidal ideation: No Pulmonary Medical History: Reports: Hx Bronchitis, Hx COPD Renal/ Medical History: Reports: Hx Kidney Stones. Denies: Hx Peritoneal Dialysis Psychiatric Medical History: Reports: Hx Attention Deficit Hyperactivity Disorder, Hx Bipolar Disorder Past Surgical History: Reports: Hx Kidney (Renal Surgery), Hx Urostomy - Immunizations Hx Diphtheria, Pertussis, Tetanus Vaccination: Yes Review of Systems - Review of Systems Constitutional: No symptoms reported EENT: No symptoms reported Cardiovascular: No symptoms reported Respiratory: No symptoms reported Gastrointestinal: No symptoms reported Genitourinary: See HPI Female Genitourinary: No symptoms reported Musculoskeletal: No symptoms reported Skin: No symptoms reported Hematologic/Lymphatic: No symptoms reported Neurological/Psychological: No symptoms reported Physical Exam - Vital signs Vitals: Temp Pulse Resp BP Pulse Ox 98.0 F 82 16 129/91 H 98 07/01/17 01:25 07/01/17 01:25 07/01/17 01:25 07/01/17 01:25 07/01/17 01:25 - Notes Notes: PHYSICAL EXAMINATION: GENERAL: Uncomfortable appearing, but in no acute distress. HEAD: Atraumatic, normocephalic. EYES: Pupils equal round and reactive to light, extraocular movements intact, sclera anicteric, conjunctiva are normal. ENT: ear canals without erythema or foreign body, TMs pearly muse with good bony landmarks, nares patent, oropharynx clear without exudates. Moist mucous membranes. NECK: Normal range of motion, supple without lymphadenopathy LUNGS: CTAB and equal. No wheezes rales or rhonchi. HEART: Regular rate and rhythm without murmurs ABDOMEN: Soft, no tenderness. No guarding, no rebound BACK: no vertebral tenderness, normal ROM GI/: Left CVA tenderness EXTREMITIES: Normal range of motion, no pitting edema. No cyanosis. NEUROLOGICAL: Cranial nerves grossly intact. Normal sensory/motor exams. PSYCH: Normal mood, normal affect. SKIN: Warm, Dry, normal turgor, no rashes or lesions noted Course - Re-evaluation Re-evalutation: 07/01/17 05:09 Patient's white count is 13.3 and evidence of infection on urinalysis with greater than 103 white blood cells and large leukocytes, blood. Patient received an ultrasound of the kidney yesterday that could not visualize the stent, radiologist had previously recommended IV contrasted CAT scan. CT with IV contrast of the abdomen and pelvis reports stent in place with multiple stones in the left kidney. Will treat patient for kidney infection today with evidence on urinalysis. She did receive IV Rocephin here in the emergency department. - Vital Signs Vital signs: Temp Pulse Resp BP Pulse Ox 98.0 F 82 16 129/91 H 98 07/01/17 01:25 07/01/17 01:25 07/01/17 01:25 07/01/17 01:25 07/01/17 01:25 - Laboratory Result Diagrams: 07/01/17 03:20 07/01/17 03:20 Laboratory results interpreted by me: 07/01/17 07/01/17 02:00 03:20 WBC 13.3 H Absolute Eosinophils 0.8 H Urine Protein 100 H Urine Blood LARGE H Ur Leukocyte Esterase LARGE H Discharge - Discharge Clinical Impression: Left flank pain UTI (urinary tract infection) Qualifiers: Urinary tract infection type: site unspecified Hematuria presence: with hematuria Qualified Code(s): N39.0 - Urinary tract infection, site not specified Condition: Stable Disposition: HOME, SELF-CARE Additional Instructions: Return immediately for any new or worsening symptoms. Follow up with urologist, call tomorrow to make followup appointment. Prescriptions: Cephalexin Monohydrate [Keflex 500 mg Capsule] 500 mg PO Q6H 10 Days capsule Oxycodone HCl/Acetaminophen [Percocet 5-325 mg Tablet] 1 - 2 tab PO Q4H PRN #15 tablet PRN Reason:
[2017-07-01] MEDS ORDERED: OXYCODONE-ACETAMINOPHEN 5-325 MG TABLET PO ONE (02:28)
[2017-07-01 04:02] LABS: ABSOLUTE BASOPHILS # (AUTO) 0.1 10^3/uL (0.0-0.2); ABSOLUTE EOSINOPHILS # (AUTO) 0.8 10^3/uL (0.0-0.6); ABSOLUTE LYMPHOCYTES (AUTO) 4.4 10^3/uL (0.5-4.7); ABSOLUTE MONOCYTES (AUTO) 0.7 10^3/uL (0.1-1.4); ABSOLUTE NEUT (AUTO) 7.3 10^3/uL (1.7-8.2); BASOPHILS % (AUTO) 0.9 % (0-2); EOSINOPHILS % (AUTO) 5.9 % (0-6); HEMATOCRIT 42.6 % (36.0-47.0); HEMOGLOBIN 14.6 g/dL (12.0-15.5); HGB HCT DIFFERENCE 1.2; LYMPHOCYTES % (AUTO) 33.1 % (13-45); MEAN CORPUSCULAR HEMOGLOBIN 32.2 pg (27.0-33.4); MEAN CORPUSCULAR HGB CONC 34.3 g/dL (32.0-36.0); MEAN CORPUSCULAR VOLUME 94 fl (80-97); MONOCYTES % (AUTO) 5.5 % (3-13); RED BLOOD COUNT 4.53 10^6/uL (3.72-5.28); RED CELL DISTRIBUTION WIDTH 12.7 % (11.5-14.0); SEGMENTED NEUTROPHILS % (AUTO) 54.6 % (42-78); WHITE BLOOD COUNT 13.3 10^3/uL (4.0-10.5)
[2017-07-01 04:21] LABS: ALANINE AMINOTRANSFERASE 20 U/L (9-52); ALKALINE PHOSPHATASE 62 U/L (38-126); ANION GAP 10 (5-19); ASPARTATE AMINO TRANSFERASE 15 U/L (14-36); BILIRUBIN,DIRECT 0.4 mg/dL (0.0-0.4); BILIRUBIN,TOTAL 0.5 mg/dL (0.2-1.3); BLOOD UREA NITROGEN 16 mg/dL (7-20); CALCIUM 9.7 mg/dL (8.4-10.2); CARBON DIOXIDE 27 mmol/L (22-30); CHLORIDE 104 mmol/L (98-107); CREATININE RESULT 1.09 mg/dL (0.52-1.25); GLUCOSE 84 mg/dL (75-110); POTASSIUM 4.4 mmol/L (3.6-5.0); SODIUM 140.5 mmol/L (137-145); TOTAL PROTEIN 6.6 g/dL (6.3-8.2)
[2017-07-01 04:41] LABS: APPEARANCE,URINE CLOUDY; BILIRUBIN,URINE NEGATIVE (NEGATIVE); CALCIUM OXALATE CRYSTALS,URINE MANY /HPF; GLUCOSE, URINE NEGATIVE (NEGATIVE); KETONES,URINE NEGATIVE (NEGATIVE); LEUKOCYTE ESTERASE,URINE LARGE (NEGATIVE); NITRITE,URINE NEGATIVE (NEGATIVE); PROTEIN,URINE 100 mg/dL (NEGATIVE); UROBILINOGEN,URINE NEGATIVE mg/dL (<2.0)
--- NOTE | 2017-07-01 04:54 | RADIOLOGY REPORT (SQ) ---
EXAM DESCRIPTION: CT ABD/PELVIS WITH IV ONLY COMPLETED DATE/TIME: 07/01/2017 4:17 am REASON FOR STUDY: L flank pain.Indeterminate bilat renal lesions/macro lobulation on 06/14 CT COMPARISON: Ultrasound, 06/29/2014. TECHNIQUE: CT scan of the abdomen and pelvis performed using helical scanning technique with dynamic intravenous contrast injection. No oral contrast. Images reviewed with lung, soft tissue, and bone windows. Reconstructed coronal and sagittal MPR images reviewed. Delayed images for evaluation of the urinary system also acquired. All images stored on PACS. All CT scanners at this facility use dose modulation, iterative reconstruction, and/or weight based d osing when appropriate to reduce radiation dose to as low as reasonably achievable (ALARA). [facility]: Dose Right [facility]: CareDose [facility]: Dose Right [facility]: Teradose 4D [facility]: [employer] CONTRAST TYPE AND DOSE: contrast/concentration: Isovue 370.00 mg/ml; Total Contrast Delivered: 100.0 ml; Total Saline Delivered: 72.0 ml RENAL FUNCTION: None required. The patient is less than 50 years old. RADIATION DOSE: Up-to-date CT equipment and radiation dose reduction techniques were employed. CTDIv ol: 20.6 mGy. DLP: 2262 mGy-cm.. LIMITATIONS: None. FINDINGS: LOWER CHEST: No significant findings. No nodules or infiltrates. LIVER: Normal size. No masses. No dilated ducts. SPLEEN: Normal size. No focal lesions. PANCREAS: No masses. No significant calcifications. No adjacent inflammation or peripancreatic fluid collections. Pancreatic duct not dilated. GALLBLADDER: No identified stones by CT criteria. No inflammatory changes to suggest cholecystitis. ADRENAL GLANDS: No significant masses or asymmetry. RIGHT KIDNEY AND URETER: Cortical scar with developmental macro lobulation of the upper pole. Renal stones measure up to 1.0 cm each. A small parapelvic cysts or mild with prominence of the collectin g system. LEFT KIDNEY AND URETER: Small subcapsular fluid associated with the upper pole of the left kidney. L eft ureteral stent appears adequate. Left renal cyst/calyceal stones measure up to 0.7 cm each. Sma ll multiple cortical scars. Left renal stones measure up to 0.7 cm each. 1.0 cm likely macro lobula tion with benign cyst, image 46 of series 3. AORTA AND VESSELS: No aneurysm. No dissection. Renal arteries, SMA, celiac without stenosis. RETROPERITONEUM: No retroperitoneal adenopathy, hemorrhage or masses. BOWEL AND PERITONEAL CAVITY: No masses or inflammatory changes. No free fluid or peritoneal masses. Moderate colonic stool retention. APPENDIX: No evidence of appendicitis. PELVIS: No mass. No free fluid. Normal bladder. ABDOMINAL WALL: No masses. No hernias. BONES: No significant or acute findings. OTHER: No other significant finding. IMPRESSION: 1. Irregularities of bilateral kidneys include multifocal scarring and macro lobulation , including a likely benign 1.0 cm complex cystic macro lobulation of the inferior pole of the left k idney ; other neoplastic processes cannot be completely excluded. Dynamic contrast CT of the kidneys recommended in 3 months. 2. Bilateral nephrolithiasis measures up to 1.0 cm on the right and 0.7 c m on the left. Left ureteral stent. Multiple bilateral renal scars. TECHNICAL DOCUMENTATION: JOB ID: [id number] Quality ID # [id number]: Final reports with documentation of one or more dose reduction techniques (e.g., Au tomated exposure control, adjustment of the mA and/or kV according to patient size, use of iterative reconstruction technique) 2010 [employer]- All Rights Reserved
[2017-07-01] MEDS ORDERED: CEFTRIAXONE 1 GM/D5W RTU 1 GM/50 ML RTUPB IV ONE (05:05)
[2017-07-01 07:31] VITALS: BP 129/83
== END 2017-07-01 07:31 | disposition home or self-care (01) ==
LOC: ER 01:13
DX: N39.0 Urinary tract infection, site not specified (principal); R10.9 Unspecified abdominal pain; J44.9 Chronic obstructive pulmonary disease, unspecified; Z88.6 Allergy status to analgesic agent; Z87.442 Personal history of urinary calculi
CPT/HCPCS: 99284; 96365; 36415; 87086; 85025; 80053; 81001; 74177; J7030; J0696

== ENCOUNTER 2017-07-03 17:52 | Emergency (ER) | payer SELFPAY ==
--- NOTE | 2017-07-03 18:34 | ER Document Report ---
ED Medical Screen (RME) - General Chief Complaint: Flank Pain Stated Complaint: FLANK PAIN Time Seen by Provider: 07/03/17 18:32 TRAVEL OUTSIDE OF THE [place].S. IN LAST 30 DAYS: No - HPI Notes: 07/03/17 18:33 Patient with multiple visits here for left flank pain with a stent placed in for kidney stones comes in for increased left flank pain. Patient has had multiple prescriptions for narcotics in the last 5 days with tablets greater than 60. Patient looks to be in no obvious distress. Patient was recently seen placed on Keflex for UTI. 07/03/17 18:33 Patient states gave herself a dose of ketorolac prior to arrival - Related Data Allergies/Adverse Reactions: aspirin Allergy (Verified 06/29/17 21:19) coconut Allergy (Verified 07/03/17 18:06) morphine Allergy (Verified 06/29/17 21:19) Past Medical History - Social History Chew tobacco use (# tins/day): No Frequency of alcohol use: None Drug Abuse: None Family history: Reviewed & Not Pertinent Pulmonary Medical History: Reports: Hx Bronchitis, Hx COPD Renal/ Medical History: Reports: Hx Kidney Stones. Denies: Hx Peritoneal Dialysis Psychiatric Medical History: Reports: Hx Attention Deficit Hyperactivity Disorder, Hx Bipolar Disorder Past Surgical History: Reports: Hx Kidney (Renal Surgery), Hx Urostomy - Immunizations Hx Diphtheria, Pertussis, Tetanus Vaccination: Yes Review of Systems - Review of Systems Constitutional: No symptoms reported EENT: No symptoms reported Cardiovascular: No symptoms reported Respiratory: No symptoms reported Gastrointestinal: No symptoms reported Genitourinary: Flank pain Female Genitourinary: No symptoms reported Musculoskeletal: No symptoms reported Skin: No symptoms reported Hematologic/Lymphatic: No symptoms reported Neurological/Psychological: No symptoms reported Physical Exam - Vital signs Vitals: Temp Pulse Resp BP Pulse Ox 98.1 F 101 H 18 137/74 H 97 07/03/17 18:03 07/03/17 18:03 07/03/17 18:03 07/03/17 18:03 07/03/17 18:03 Interpretation: Normal - General General appearance: Appears well, Alert - HEENT Head: Normocephalic, Atraumatic Eyes: Normal Pupils: PERRL - Respiratory Respiratory status: No respiratory distress Chest status: Nontender Breath sounds: Normal Chest palpation: Normal - Cardiovascular Rhythm: Regular Heart sounds: Normal auscultation Murmur: No - Abdominal Inspection: Normal Distension: No distension Bowel sounds: Normal Tenderness: Nontender Organomegaly: No organomegaly - Back Back: Normal, Nontender - Extremities General upper extremity: Normal inspection, Nontender, Normal color, Normal ROM , Normal temperature General lower extremity: Normal inspection, Nontender, Normal color, Normal ROM , Normal temperature, Normal weight bearing. No: Radha's sign - Neurological Neuro grossly intact: Yes Cognition: Normal Orientation: AAOx4 Avani Coma Scale Eye Opening: Spontaneous [place] Coma Scale Verbal: Oriented Avani Coma Scale Motor: Obeys Commands Stevenson Coma Scale Total: 15 Speech: Normal Motor strength normal: LUE, RUE, LLE, RLE Sensory: Normal - Psychological Associated symptoms: Normal affect, Normal mood - Skin Skin Temperature: Warm Skin Moisture: Dry Skin Color: Normal Course - Re-evaluation Re-evalutation: 07/03/17 18:34 Will obtain straight cath urine - Vital Signs Vital signs: Temp Pulse Resp BP Pulse Ox 98.1 F 101 H 18 137/74 H 97 07/03/17 18:03 07/03/17 18:03 07/03/17 18:03 07/03/17 18:03 07/03/17 18:03
[2017-07-03 19:04] LABS: ABSOLUTE BASOPHILS # (AUTO) 0.1 10^3/uL (0.0-0.2); ABSOLUTE EOSINOPHILS # (AUTO) 0.4 10^3/uL (0.0-0.6); ABSOLUTE LYMPHOCYTES (AUTO) 2.9 10^3/uL (0.5-4.7); ABSOLUTE MONOCYTES (AUTO) 0.8 10^3/uL (0.1-1.4); BASOPHILS % (AUTO) 0.5 % (0-2); EOSINOPHILS % (AUTO) 2.6 % (0-6); HEMATOCRIT 45.1 % (36.0-47.0); HEMOGLOBIN 16.1 g/dL (12.0-15.5); HGB HCT DIFFERENCE 3.2; LYMPHOCYTES % (AUTO) 20.8 % (13-45); MEAN CORPUSCULAR HEMOGLOBIN 33.1 pg (27.0-33.4); MEAN CORPUSCULAR HGB CONC 35.7 g/dL (32.0-36.0); MEAN CORPUSCULAR VOLUME 93 fl (80-97); MONOCYTES % (AUTO) 5.6 % (3-13); RED BLOOD COUNT 4.88 10^6/uL (3.72-5.28); RED CELL DISTRIBUTION WIDTH 12.9 % (11.5-14.0); SEGMENTED NEUTROPHILS % (AUTO) 70.5 % (42-78); WHITE BLOOD COUNT 14.1 10^3/uL (4.0-10.5)
--- NOTE | 2017-07-03 19:11 | ER Document Report ---
ED GI/ - General Chief Complaint: Flank Pain Stated Complaint: FLANK PAIN Time Seen by Provider: 07/03/17 18:32 Mode of Arrival: Ambulatory Information source: Patient Notes: 26 yo female gets sensation of my bladder falling out with increased blood, sx started yesterday, tylenol, oxycodone, ketorlaoc, zofran. Nausea with vomiting since yesterday. ? infection, left pelvis and left flank pain, sharper. Stent place Wednesday [place] urologist, supposed to take it out wednesday with f/u appt. wednesday. [facility]. TRAVEL OUTSIDE OF THE [place].S. IN LAST 30 DAYS: No - Related Data Allergies/Adverse Reactions: aspirin Allergy (Verified 06/29/17 21:19) coconut Allergy (Verified 07/03/17 18:06) morphine Allergy (Verified 06/29/17 21:19) Past Medical History - General Information source: Patient - Social History Smoking Status: Current Every Day Smoker Chew tobacco use (# tins/day): No Frequency of alcohol use: None Drug Abuse: None Lives with: Spouse/Significant other Family History: None Patient has suicidal ideation: No Patient has homicidal ideation: No Pulmonary Medical History: Reports: Hx Bronchitis, Hx COPD Renal/ Medical History: Reports: Hx Kidney Stones. Denies: Hx Peritoneal Dialysis Psychiatric Medical History: Reports: Hx Attention Deficit Hyperactivity Disorder, Hx Bipolar Disorder Past Surgical History: Reports: Hx Kidney (Renal Surgery), Hx Urostomy - Immunizations Hx Diphtheria, Pertussis, Tetanus Vaccination: Yes Review of Systems - Review of Systems Constitutional: No symptoms reported EENT: No symptoms reported Cardiovascular: No symptoms reported Respiratory: No symptoms reported Gastrointestinal: No symptoms reported Genitourinary: See HPI Female Genitourinary: No symptoms reported Musculoskeletal: No symptoms reported Skin: No symptoms reported Hematologic/Lymphatic: No symptoms reported Neurological/Psychological: No symptoms reported Physical Exam - Vital signs Vitals: Temp Pulse Resp BP Pulse Ox 98.1 F 101 H 18 137/74 H 97 07/03/17 18:03 07/03/17 18:03 07/03/17 18:03 07/03/17 18:03 07/03/17 18:03 Interpretation: Normal - Notes Notes: obese, hirtuism, transitioning to male with hormones - General General appearance: Appears well, Alert - HEENT Head: Normocephalic, Atraumatic Eyes: Normal Pupils: PERRL Neck: Supple - Respiratory Respiratory status: No respiratory distress Chest status: Nontender Breath sounds: Normal Chest palpation: Normal - Cardiovascular Rhythm: Regular Heart sounds: Normal auscultation Murmur: No - Abdominal Inspection: Normal Distension: No distension Bowel sounds: Normal Tenderness: Nontender Organomegaly: No organomegaly - Back Back: Normal, Nontender - Extremities General upper extremity: Normal inspection, Nontender, Normal color, Normal ROM , Normal temperature General lower extremity: Normal inspection, Nontender, Normal color, Normal ROM , Normal temperature, Normal weight bearing. No: Radha's sign - Neurological Neuro grossly intact: Yes Cognition: Normal Orientation: AAOx4 Avani Coma Scale Eye Opening: Spontaneous Avani Coma Scale Verbal: Oriented [place] Coma Scale Motor: Obeys Commands Avani Coma Scale Total: 15 Speech: Normal Motor strength normal: LUE, RUE, LLE, RLE Sensory: Normal - Psychological Associated symptoms: Normal affect, Normal mood - Skin Skin Temperature: Warm Skin Moisture: Dry Skin Color: Normal Skin irregularity: negative: Rash Course - Re-evaluation Re-evalutation: 07/03/17 21:55 Ultrasound shows no hydronephrosis on the left and I put a call to the urologist at [facility] that might be on-call for Dr. stevenson to consult with them. 07/03/17 22:00 spoke with Lissett Arias at [facility], appt nov. 1 in [place], so call on wednesday to make sooner appt. He does not want her to take the stent out until wednesday. had discussion with pt about her receiving opiate medication from so many different providers in 1 month. (9) according [place] controlled [place], and that she needs only 1 MD to controll pain. Because of this I told her no opiate pain medication from [facility] ER for this problem. 07/04/17 15:56 - Vital Signs Vital signs: Temp Pulse Resp BP Pulse Ox 97.5 F 77 16 124/79 98 07/03/17 22:25 07/03/17 22:25 07/03/17 22:25 07/03/17 22:25 07/03/17 22:25 - Laboratory Result Diagrams: 07/03/17 18:50 07/03/17 18:50 Laboratory results interpreted by me: 07/03/17 07/03/17 18:50 19:58 WBC 14.1 H Hgb 16.1 H Absolute Neutrophils 10.0 H Urine Protein >=500 H Urine Blood LARGE H Ur Leukocyte Esterase MODERATE H Discharge - Discharge Clinical Impression: Pyuria Hematuria Qualifiers: Hematuria type: gross Qualified Code(s): R31.0 - Gross hematuria Condition: Good Disposition: HOME, SELF-CARE Additional Instructions: call wednesday for appt sooner than [email or web address] at [facility] drink fluids slowly keep the stent in place until wednesday as instructed to er any concerns Please complete the patient satisfaction survey if you get one, and return it.. If you do not receive a survey, then you can go to the [facility] website, [email or web address] and place your comments about your very good care. Thank you very much. It was a pleasure being your medical provider today.
[2017-07-03 19:19] LABS: ANION GAP 12 (5-19); BLOOD UREA NITROGEN 18 mg/dL (7-20); CARBON DIOXIDE 25 mmol/L (22-30); CHLORIDE 103 mmol/L (98-107); CREATININE RESULT 1.04 mg/dL (0.52-1.25); GLUCOSE 91 mg/dL (75-110); POTASSIUM 4.7 mmol/L (3.6-5.0); SODIUM 140.3 mmol/L (137-145)
[2017-07-03 20:26] LABS: APPEARANCE,URINE CLOUDY; BILIRUBIN,URINE NEGATIVE (NEGATIVE); CALCIUM OXALATE CRYSTALS,URINE FEW /HPF; GLUCOSE, URINE NEGATIVE (NEGATIVE); KETONES,URINE NEGATIVE (NEGATIVE); LEUKOCYTE ESTERASE,URINE MODERATE (NEGATIVE); NITRITE,URINE NEGATIVE (NEGATIVE); PROTEIN,URINE >=500 mg/dL (NEGATIVE); URINE SPECIFIC GRAVITY 1.025; UROBILINOGEN,URINE NEGATIVE mg/dL (<2.0)
[2017-07-03] MEDS ORDERED: ACETAMINOPHEN 325 MG TABLET PO ONE (20:33)
--- NOTE | 2017-07-03 21:07 | RADIOLOGY REPORT (SQ) ---
EXAM DESCRIPTION: U/S RETROPERITON (RENAL/AORTA) COMPLETED DATE/TIME: 07/03/2017 8:39 pm REASON FOR STUDY: stent placement COMPARISON: CT abdomen 07/01/2017 TECHNIQUE: Dynamic and static grayscale images acquired of the kidneys and bladder and recorded on P ACS. Additional selected color Doppler and spectral images recorded. LIMITATIONS: Body habitus and intervening bowel gas limit this examination. FINDINGS: RIGHT KIDNEY: Normal size. Normal echogenicity. No solid or suspicious masses. No h ydronephrosis. A 0.8 cm nonobstructing nephrolith is demonstrated. LEFT KIDNEY: Normal size. Normal echogenicity. No solid or suspicious masses. No hydronephrosi s. Multiple nonobstructing nephroliths are present. An apparent ureteral stent is poorly character ized. BLADDER: No masses. OTHER FINDINGS: No other significant finding. IMPRESSION: Examination limited by body habitus and intervening bowel gas. A left ureteral stent is poorly characterized by ultrasound. However, there is no hydronephrosis to suggest malfunction. TECHNICAL DOCUMENTATION: JOB ID: [id number]- All Rights Reserved
[2017-07-03 22:27] VITALS: BP 124/79
== END 2017-07-03 22:25 | disposition home or self-care (01) ==
LOC: ER 17:52
DX: N39.0 Urinary tract infection, site not specified (principal); R31.0 Gross hematuria; R10.9 Unspecified abdominal pain; R11.2 Nausea with vomiting, unspecified; E66.9 Obesity, unspecified; L68.0 Hirsutism; R10.2 Pelvic and perineal pain; Z88.6 Allergy status to analgesic agent; F17.200 Nicotine dependence, unspecified, uncomplicated; Z87.442 Personal history of urinary calculi
CPT/HCPCS: 36415; 76770; 80048; 81001; 85025; 87086; 99284

== ENCOUNTER 2017-08-11 02:31 | Emergency (ER) | payer SELFPAY ==
[2017-08-11 02:39] VITALS: BP 159/118
[2017-08-11] MEDS ORDERED: BESIFLOXACIN HCL 0.6% OPH SUSP 5 ML BOTTLE OU ONE (03:37)
--- NOTE | 2017-08-11 03:39 | ER Document Report ---
HPI - HPI Patient complains to provider of: eye irritation and discharge Pain Level: 5 Context: Patient is a 26-year-old female comes emergency department for chief complaint of eye irritation for the past 3 days, she started to have a discharge first from the left and now from the right eye, she wears contacts but she has taken them out a couple of days ago and has not placed him back in. She denies injury to the eye. She denies visual changes. She denies facial swelling. She denies any other symptoms. - REPRODUCTIVE Reproductive: DENIES: : Past Medical History - General Information source: Patient - Social History Smoking Status: Never Smoker Frequency of alcohol use: None Drug Abuse: None Lives with: Family Family History: None Patient has suicidal ideation: No Patient has homicidal ideation: No Pulmonary Medical History: Reports: Hx Bronchitis, Hx COPD Renal/ Medical History: Reports: Hx Kidney Stones. Denies: Hx Peritoneal Dialysis Psychiatric Medical History: Reports: Hx Attention Deficit Hyperactivity Disorder, Hx Bipolar Disorder Past Surgical History: Reports: Hx Kidney (Renal Surgery), Hx Urostomy - Immunizations Hx Diphtheria, Pertussis, Tetanus Vaccination: Yes Vertical Provider Document - CONSTITUTIONAL General Appearance: WD/WN, No Apparent Distress - INFECTION CONTROL TRAVEL OUTSIDE OF THE [place]. IN LAST 30 DAYS: No - HEENT HEENT: Conjuctival Injection - Bilateral conjunctival injection, under fluorescein dye exam there is no Beka sign no fluorescein uptake, no dendrites , no evidence of foreign body over the eye, under the eyelids. There is small amount of discolored discharge coming out of the left eye. Normal eye exam otherwise. Normal pupil, normal EOMs. - NECK Neck: Normal Inspection - RESPIRATORY Respiratory: Breath Sounds Normal, No Respiratory Distress O2 Sat by Pulse Oximetry: 98 - CARDIOVASCULAR Cardiovascular: Regular Rate, Regular Rhythm - GI/ABDOMEN Gastrointestinal: Abdomen Soft, Abdomen Non-Tender - MUSCULOSKELETAL/EXTREMETIES Musculoskeletal/Extremeties: MAEW, FROM, Non-Tender Course - Re-evaluation Re-evalutation: Examination consistent with conjunctivitis. No concerning findings on examination with fluorescein dye using [place] and slit lamps, no foreign body, no signs of trauma, no visual loss reported, treating patient for conjunctivitis , referred to ophthalmology, discussed return precautions, patient states understanding and agreement. Patient was not tachycardic on my examination. Unfortunately vital signs were not repeated/recorded again at discharge. - Vital Signs Vital signs: Temp Pulse Resp BP Pulse Ox 98.4 F 109 H 18 159/118 H 98 08/11/17 02:36 08/11/17 02:36 08/11/17 02:36 08/11/17 02:36 08/11/17 02:36 Discharge - Discharge Clinical Impression: Irritation of eye Conjunctivitis Qualifiers: Conjunctivitis type: acute Acute conjunctivitis type: unspecified Laterality: bilateral Qualified Code(s): H10.33 - Unspecified acute conjunctivitis, bilateral Condition: Stable Disposition: HOME, SELF-CARE Additional Instructions: Your examination is consistent with conjunctivitis, no foreign body or other abnormality is seen at this time. Use the antibiotic eyedrops as prescribed, follow-up with ophthalmology referral if symptoms continue, return immediately if he develop any concerning or worsening symptoms including swelling of the eyelid, fever, loss of vision, or any other concerning symptoms. Prescriptions: Besifloxacin HCl [Besivance Drops] 1 drop OP TID #1 bottle Referrals: WILL MAZA MD [ACTIVE STAFF] - Follow up tomorrow
== END 2017-08-11 03:51 | disposition home or self-care (01) ==
LOC: ER 02:31
DX: H10.33 Unspecified acute conjunctivitis, bilateral (principal); H57.11 Ocular pain, right eye
CPT/HCPCS: 99283

== ENCOUNTER 2017-08-29 19:14 | Emergency (ER) | payer SELFPAY ==
--- NOTE | 2017-08-29 20:00 | ER Document Report ---
ED Medical Screen (RME) - General Chief Complaint: R flank pain Stated Complaint: RIGHT FLANK PAIN Time Seen by Provider: 08/29/17 19:47 Notes: -year-old patient complaining of right flank pain for 2 weeks. Seen here 8 days ago for same, ultrasound did not show hydronephrosis at that time. Patient has known kidney stones. Patient has received narcotic prescriptions from multiple providers and on at least one visit in June was told that they would not be receiving narcotic prescriptions from this facility. Previous ultrasounds and CTs confirmed stones in the kidneys, but did not show hydronephrosis or ureteral stones. The patient reports an appointment with the urologist on 09/01/2017, does not have the money for the appointment. I have greeted and performed a rapid initial assessment of this patient. A comprehensive ED assessment and evaluation of the patient, analysis of test results and completion of the medical decision making process will be conducted by additional ED providers. TRAVEL OUTSIDE OF THE [place].S. IN LAST 30 DAYS: No - Related Data Allergies/Adverse Reactions: aspirin Allergy (Verified 08/21/17 22:41) coconut Allergy (Verified 08/21/17 22:41) morphine Allergy (Verified 08/21/17 22:41) Past Medical History - Social History Family history: Reviewed & Not Pertinent Pulmonary Medical History: Reports: Hx Bronchitis, Hx COPD Renal/ Medical History: Reports: Hx Kidney Stones. Denies: Hx Peritoneal Dialysis Psychiatric Medical History: Reports: Hx Attention Deficit Hyperactivity Disorder, Hx Bipolar Disorder Past Surgical History: Reports: Hx Kidney (Renal Surgery), Hx Urostomy - Immunizations Hx Diphtheria, Pertussis, Tetanus Vaccination: Yes Physical Exam - Vital signs Vitals: Temp Pulse Resp BP Pulse Ox 98.6 F 115 H 20 145/96 H 99 08/29/17 19:33 08/29/17 19:33 08/29/17 19:33 08/29/17 19:33 08/29/17 19:33 Course - Vital Signs Vital signs: Temp Pulse Resp BP Pulse Ox 98.6 F 115 H 20 145/96 H 99 08/29/17 19:33 08/29/17 19:33 08/29/17 19:33 08/29/17 19:33 08/29/17 19:33
[2017-08-29 21:34] LABS: BILIRUBIN,URINE NEGATIVE (NEGATIVE); CALCIUM OXALATE CRYSTALS,URINE MODERATE /HPF; GLUCOSE, URINE NEGATIVE (NEGATIVE); KETONES,URINE NEGATIVE (NEGATIVE); LEUKOCYTE ESTERASE,URINE TRACE (NEGATIVE); NITRITE,URINE NEGATIVE (NEGATIVE); PROTEIN,URINE NEGATIVE (NEGATIVE); URINE SPECIFIC GRAVITY 1.017; UROBILINOGEN,URINE NEGATIVE mg/dL (<2.0)
[2017-08-29 21:38] LABS: APPEARANCE,URINE SLIGHTLY-CLOUDY
--- NOTE | 2017-08-29 21:45 | RADIOLOGY REPORT (SQ) ---
EXAM DESCRIPTION: U/S RETROPERITON (RENAL/AORTA) COMPLETED DATE/TIME: 08/29/2017 9:17 pm REASON FOR STUDY: right flank pain, kidney stones COMPARISON: 08/22/2017. TECHNIQUE: Dynamic and static grayscale images acquired of the kidneys and bladder and recorded on P ACS. Additional selected color Doppler and spectral images recorded. LIMITATIONS: None. FINDINGS: RIGHT KIDNEY: No hydronephrosis. Lower pole 1 cm stone. LEFT KIDNEY: No hydronephrosis. Upper pole 1 cm stone. BLADDER: No mass or stones. OTHER FINDINGS: No other significant finding. IMPRESSION: Known bilateral nephrolithiasis. No evidence of urinary obstruction. TECHNICAL DOCUMENTATION: JOB ID: [id number] [email or web address]- All Rights Reserved
[2017-08-29] MEDS ORDERED: OXYCODONE-ACETAMINOPHEN 5-325 MG TABLET PO ONE (21:51)
--- NOTE | 2017-08-29 22:27 | ER Document Report ---
HPI - HPI Patient complains to provider of: Right flank pain Onset: Other - 2 wks Onset/Duration: Persistent Quality of pain: Sharp Pain Level: 4 Context: Patient presents complaining of right flank pain for the past 2 weeks that worsened over the past few days. Patient has a known history of renal stones and suspects the same tonight. Patient reports nausea and vomiting 1 episode today. Patient does complain of some urinary frequency. Patient has an appointment with her urologist in 3 days. Patient denies any abdominal tenderness. Patient denies any fever. Associated Symptoms: Nausea, Vomiting, Other - Right flank pain. denies: Fever Exacerbated by: Denies Relieved by: Denies Similar symptoms previously: Yes Recently seen / treated by doctor: No - ROS ROS below otherwise negative: Yes Systems Reviewed and Negative: Yes All other systems reviewed and negative - CONSTITUTIONAL Constitutional: DENIES: Fever - CARDIOVASCULAR Cardiovascular: DENIES: Chest pain - GASTROINTESTINAL Gastrointestinal: REPORTS: Nausea, Patient vomiting. DENIES: Abdominal Pain, Diarrhea - URINARY Urinary: REPORTS: Frequency. DENIES: Dysuria - REPRODUCTIVE Reproductive: DENIES: : - MUSCULOSKELETAL Musculoskeletal: REPORTS: Back Pain - DERM Skin Color: Normal, Moroni Skin Problems: None Past Medical History - General Information source: Patient - Social History Smoking Status: Current Every Day Smoker Chew tobacco use (# tins/day): No Frequency of alcohol use: None Drug Abuse: None Lives with: Spouse/Significant other Family History: None Patient has suicidal ideation: No Patient has homicidal ideation: No Pulmonary Medical History: Reports: Hx Bronchitis, Hx COPD Renal/ Medical History: Reports: Hx Kidney Stones. Denies: Hx Peritoneal Dialysis Psychiatric Medical History: Reports: Hx Attention Deficit Hyperactivity Disorder, Hx Bipolar Disorder Past Surgical History: Reports: Hx Kidney (Renal Surgery), Hx Urostomy - Immunizations Hx Diphtheria, Pertussis, Tetanus Vaccination: Yes Vertical Provider Document - CONSTITUTIONAL Agree With Documented VS: Yes Exam Limitations: No Limitations General Appearance: WD/WN, No Apparent Distress - INFECTION CONTROL TRAVEL OUTSIDE OF THE [place]. IN LAST 30 DAYS: No - HEENT HEENT: Atraumatic, Normocephalic - NECK Neck: Normal Inspection, Supple - RESPIRATORY Respiratory: Breath Sounds Normal, No Respiratory Distress O2 Sat by Pulse Oximetry: 99 - CARDIOVASCULAR Cardiovascular: Regular Rhythm, No Murmur, Tachycardia - GI/ABDOMEN Gastrointestinal: Abdomen Soft, Abdomen Non-Tender - BACK Back: CVA Tenderness-Right - MUSCULOSKELETAL/EXTREMETIES Musculoskeletal/Extremeties: ROSALEE CRUZ - NEURO Level of Consciousness: Awake, Alert, Appropriate Motor/Sensory: No Motor Deficit - DERM Integumentary: Warm, Dry, No Rash Course - Re-evaluation Re-evalutation: 08/29/17 22:28 Discussed with patient concerns about numerous emergency department visits for painful condition. Patient also confronted with controlled substance database findings that demonstrate that patient's had numerous prescriptions for narcotic pain medication over the past few months from numerous providers in 4 different [facility] including [facility], [place] as well as [facility]. Patient has even had narcotic prescriptions filled from 2 different providers on the same day into different sounds. Patient advised that she will need to obtain pain medication from either her primary doctor, her urologist were from pain management. Patient with urinalysis results that show trace leukocyte esterase with only 10 WBCs and 17 epithelial cells. Do not suspect that patient has overt infection at this time. Patient has stable ultrasound findings with a known history of intrarenal calcifications. Consulted with Dr. Finch regarding patient presentation and disposition. Agrees with discharge plan of care. - Vital Signs Vital signs: Temp Pulse Resp BP Pulse Ox 98.6 F 115 H 20 145/96 H 99 08/29/17 19:33 08/29/17 19:33 08/29/17 19:33 08/29/17 19:33 08/29/17 19:33 - Laboratory Laboratory results interpreted by me: 08/29/17 20:11 Ur Leukocyte Esterase TRACE H Discharge - Discharge Clinical Impression: Right flank pain, Hx of renal calculi Condition: Stable Disposition: HOME, SELF-CARE Additional Instructions: Return immediately for any new or worsening symptoms Followup with your primary care provider, call tomorrow to make a followup appointment Follow-up with your urologist as planned You may consider seeking evaluation from pain management to help manage your chronic pain symptoms. Take your pain medication and nausea medication they have at home as prescribed Referrals: [facility] [Provider Group] - Follow up as needed POINT,LUKE Mcintyre MD [NO LOCAL MD] - Follow up tomorrow [facility] [Provider Group] - Follow up tomorrow
[2017-08-29 22:45] VITALS: BP 127/82
== END 2017-08-29 22:43 | disposition home or self-care (01) ==
LOC: ER 19:14
DX: R10.9 Unspecified abdominal pain (principal); R35.0 Frequency of micturition; R11.2 Nausea with vomiting, unspecified; F17.200 Nicotine dependence, unspecified, uncomplicated; Z87.442 Personal history of urinary calculi
CPT/HCPCS: 76770; 81001; 99284

== ENCOUNTER 2017-10-28 07:55 | Emergency (ER) | payer SELFPAY ==
[2017-10-28 09:37] VITALS: BP 129/80
--- NOTE | 2017-10-28 09:40 | ER Document Report ---
ED ENT - General Chief Complaint: Skin Problem Stated Complaint: EAR PAIN Time Seen by Provider: 10/28/17 09:13 Mode of Arrival: Ambulatory Information source: Patient Notes: 26-year-old female presented to ED for complaint of left ear pain. States she was started on eardrops last week for her ear pain. She also has left breast pain with discoloration times a week. She states she has also got cough cold congestion. She was seen last week [place] for her ear. Smokes 2-3 cigars a day. TRAVEL OUTSIDE OF THE [place] IN LAST 30 DAYS: No - HPI Patient complains to provider of: Ear problem, Nose problem, Throat problem, Other - Left breast discomfort Onset: Last week Onset/Duration: Gradual Quality of pain: Achy Severity: Moderate Pain Level: 4 Context: Recent Illness Location of pain: Ears, Nose, Sinus Associated symptoms: Congestion, Cough, Ear pain, Runny nose, Sinus pain, Sinus drainage, Sore throat Similar symptoms previously: No Recently seen / treated by doctor: No - Related Data Allergies/Adverse Reactions: aspirin Allergy (Verified 10/28/17 07:56) coconut Allergy (Verified 10/28/17 07:56) morphine Allergy (Verified 10/28/17 07:56) Past Medical History - General Information source: Patient - Social History Smoking Status: Current Every Day Smoker Cigarette use (# per day): Yes - 2- 3 cigars a day Chew tobacco use (# tins/day): No Smoking Education Provided: Yes - 4 minutes Frequency of alcohol use: None Drug Abuse: None Lives with: Family Family History: None Patient has suicidal ideation: No Patient has homicidal ideation: No - Past Medical History Cardiac Medical History: Reports: None Pulmonary Medical History: Reports: Hx Bronchitis, Hx COPD EENT Medical History: Reports: None Neurological Medical History: Reports: None Endocrine Medical History: Reports: None Renal/ Medical History: Reports: Hx Kidney Stones Malignancy Medical History: Reports: None GI Medical History: Reports: None Musculoskeltal Medical History: Reports None Skin Medical History: Reports None Psychiatric Medical History: Reports: Hx Attention Deficit Hyperactivity Disorder, Hx Bipolar Disorder Traumatic Medical History: Reports: None Infectious Medical History: Reports: None Past Surgical History: Reports: Hx Kidney (Renal Surgery), Hx Oral Surgery, Hx Urostomy - Immunizations Hx Diphtheria, Pertussis, Tetanus Vaccination: Yes Review of Systems - Review of Systems Constitutional: No symptoms reported EENT: Ear pain, Nose discharge, Sinus discharge, Throat pain Cardiovascular: No symptoms reported Respiratory: Cough Gastrointestinal: No symptoms reported Genitourinary: No symptoms reported Female Genitourinary: Other - Left breast pain Musculoskeletal: No symptoms reported Skin: No symptoms reported Hematologic/Lymphatic: No symptoms reported Neurological/Psychological: No symptoms reported -: Yes All other systems reviewed and negative Physical Exam - Vital signs Vitals: Temp Pulse Resp BP Pulse Ox 98.4 F 110 H 16 144/89 H 97 10/28/17 07:59 10/28/17 07:59 10/28/17 07:59 10/28/17 07:59 10/28/17 07:59 Interpretation: Normal - General General appearance: Appears well, Alert Notes: Patient states she has left breast pain but there is no lumps no discoloration no changes noted. 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 - HEENT Head: Normocephalic, Atraumatic Eyes: Normal Pupils: PERRL Ears: Normal External canal: Normal Tympanic membrane: Normal Sinus: Normal Nasal: Purulent discharge, Swelling Mouth/Lips: Normal Mucous membranes: Normal Pharynx: Post nasal drainage Neck: Normal - Respiratory Respiratory status: No respiratory distress Chest status: Nontender Breath sounds: Nonproductive cough Chest palpation: Normal - Cardiovascular Rhythm: Regular Heart sounds: Normal auscultation Murmur: No - Abdominal Inspection: Normal Distension: No distension Bowel sounds: Normal Tenderness: Nontender Organomegaly: No organomegaly - Back Back: Normal, Nontender - Extremities General upper extremity: Normal inspection, Nontender, Normal color, Normal ROM , Normal temperature General lower extremity: Normal inspection, Nontender, Normal color, Normal ROM , Normal temperature, Normal weight bearing. No: Rdaha's sign - Neurological Neuro grossly intact: Yes Cognition: Normal Orientation: AAOx4 Avani Coma Scale Eye Opening: Spontaneous Avani Coma Scale Verbal: Oriented Wiggins Coma Scale Motor: Obeys Commands Avani Coma Scale Total: 15 Speech: Normal Motor strength normal: LUE, RUE, LLE, RLE Sensory: Normal - Psychological Associated symptoms: Normal affect, Normal mood - Skin Skin Temperature: Warm Skin Moisture: Dry Skin Color: Normal Course - Vital Signs Vital signs: Temp Pulse Resp BP Pulse Ox 97.7 F 104 H 16 129/80 H 97 10/28/17 09:37 10/28/17 09:43 10/28/17 09:37 10/28/17 09:37 10/28/17 09:43 Discharge - Discharge Clinical Impression: Breast pain in female URI (upper respiratory infection) Qualifiers: URI type: unspecified URI Qualified Code(s): J06.9 - Acute upper respiratory infection, unspecified HTN (hypertension) Qualifiers: Hypertension type: unspecified Qualified Code(s): I10 - Essential (primary) hypertension Condition: Stable Disposition: HOME, SELF-CARE Instructions: Family Physicians / Practices Additional Instructions: UPPER RESPIRATORY ILLNESS: You have a viral infection of the respiratory passages -- a "cold." This common infection causes nasal congestion, drainage, and often sore throat and cough. It is highly contagious. The disease usually lasts about 10 to 14 days. There is no "cure" for the viral infection -- it must run its course. If there is a complication, such as bacterial infection in the nose, sinuses, middle ear, or bronchial tubes, antibiotics may be required. The antibiotics won't affect the virus. Drink plenty of fluids. A humidifier may help. An expectorant medication or decongestant may make you more comfortable. Use acetaminophen or ibuprofen for fever or aches. See the doctor if fever persists over two days, if there is any significant worsening of your symptoms, or if you simply fail to improve as expected. Breast Pain Breast pain is a common concern with many causes, most of which are benign (not cancer). Pain should first be evaluated fully by a health care provider to include a thorough breast exam and potentially breast imaging such as a mammogram and/or ultrasound. If this evaluation fails to identify an abnormality such as a cyst causing the pain, therapies aimed at treating physiologic breast pain can be considered. Physiologic breast pain generally falls into three categories: 1. Dietary. Often women do not get enough Vitamin E or an essential fatty acid called linoleic acid. Deficiencies of these can cause breast pain. Therefore, we recommend: A. A trial of decreasing or eliminating caffeine intake. B. Oil of Evening [place] at a dose of 2 to 3 grams by mouth per day C. Vitamin E at a dose of 400 to 800 IU by mouth per day. Both Evening [place] Oil and Vitamin E are available [id number] at most well-stocked pharmacies, [facility] or even stores such as [employer] or the like with a nutritional supplement aisle. We advise to start one or the other and observe for pain relief after several months or consistent use. If the pain continues, stop the supplement and try the other option for several months. If no improvement with the second supplement then other options should be considered. 2. Hormonal variations. Women often have breast pain as their hormone levels fluctuate prior to their menstrual period, during and during menopause. Danielle- and post-menopausal women on hormone replacement therapy can experience breast discomfort as a side effect of the medications. Lastly, a small amount of estrogen is made in the fatty tissues of everyones body. Weight loss can often decrease the amount of this estrogen and in turn may decrease breast pain in overweight patients. 3. Structural. The breasts are held onto the chest wall by Coopers ligaments within the breast. Stretching of these ligaments can cause breast pain especially in larger breasted women. A well supportive and well fitting bra is critical to some women to relieve their pain. We advise that the women see a bra-fitter at [facility] or other [facility] to find an appropriately fitting undergarment. If breast discomfort is a problem with removal of ones bra at the end of the day, consideration should be given to wear a comfortable sleep bra such as a nursing bra to bed to provide more support. For acute flares of pain, [id number] Tylenol or Ibuprofen such as Advil or Motrin should suffice for most patients to relieve their discomfort. It is also important to note that the breast and chest wall share a common nerve supply and so muscle strains, arthritis or other inflammatory conditions of the chest wall can cause referred pain in the breast and are often relieved with anti-inflammatories. DECONGESTANT MEDICATION: A decongestant medicine has been prescribed. Often this medicine is combined in the same tablet with an antihistamine or expectorant. This type of medicine is helpful in treating a bad cold or sinus condition, as well as in treatment of the nasal congestion of hay fever. It is not of much benefit for lung infections. Decongestant medicines are related to stimulants. They can cause an increase in blood pressure and heart rate. Persons with heart disease and high blood pressure should not take decongestants without discussing this with the physician. If you develop palpitations, chest pain, headache, or tremors, stop the medicine and consult your physician. COUGH-SUPPRESSANT & EXPECTORANT MEDICATION: You are to use a cough medication as needed for relief of symptoms. This medicine is a combination of an expectorant (to make the mucous thinner and more easily "coughed up") and a cough suppressant (to reduce the frequency of coughing). The cough-suppressant medicine is related to narcotics. You may experience mild nausea and sleepiness. Some patients who are very sensitive to narcotics may have stomach pain from this medicine. Taking the medicine with food reduces these side effects. Do not drive or work with machinery until you know how this medicine affects you. The expectorant should have no side effects. Iodine-containing expectorants (such as organidin) should not be taken by persons with active thyroid disease unless approved by your doctor. Call the doctor if you develop shortness of breath, hives, rash, itching, lightheadedness, or severe nausea and vomiting. USE OF ACETAMINOPHEN (Tylenol): Acetaminophen may be taken for pain relief or fever control. It's much safer than aspirin, offering a wider range of "safe" dosages. It is safe during . Some brand names are Tylenol, Panadol, Datril, Anacin 3, Tempra, and Liquiprin. Acetaminophen can be repeated every four hours. The following are maximum recommended dosages: >89 pounds or adults 650 mg to 900 mg Acetaminophen can be repeated every four hours. Maximum dose not to exceed 4000 mg a day. SMOKING: If you smoke, you should stop smoking. The tar and chemicals in cigarette smoke are harmful. Smoking has been shown to cause: emphysema chronic bronchitis lung cancer mouth and throat cancer stomach and pancreas cancer premature aging defects In addition, smoking increases ear and lung infections in children of smokers. FOLLOW-UP CARE: If you have been referred to a physician for follow-up care, call the physician s office for an appointment as you were instructed or within the next two days. If you experience worsening or a significant change in your symptoms, notify the physician immediately or return to the Emergency Department at any time for re-evaluation. Forms: Elevated Blood Pressure, Smoking Cessation Education Referrals: [facility] [Provider Group] - Follow up as needed
== END 2017-10-28 09:46 | disposition home or self-care (01) ==
LOC: ER 07:55
DX: J02.9 Acute pharyngitis, unspecified (principal); N64.4 Mastodynia; J44.9 Chronic obstructive pulmonary disease, unspecified; I10 Essential (primary) hypertension; H92.02 Otalgia, left ear; J34.89 Other specified disorders of nose and nasal sinuses; R05 Cough; R09.82 Postnasal drip; F17.290 Nicotine dependence, other tobacco product, uncomplicated; Z88.6 Allergy status to analgesic agent; Z91.018 Allergy to other foods; Z88.5 Allergy status to narcotic agent
CPT/HCPCS: 99283

== ENCOUNTER 2017-11-14 14:17 | Emergency (ER) | payer SELFPAY ==
[2017-11-14] MEDS ORDERED: KETOROLAC TROMETHAMINE 60 MG/2 ML SDV IM ONE (14:29)
--- NOTE | 2017-11-14 14:34 | ER Document Report ---
ED General - General Chief Complaint: Flank Pain Stated Complaint: FLANK PAIN Time Seen by Provider: 11/14/17 14:29 Mode of Arrival: Ambulatory Information source: Patient Notes: 26-year-old female presents with complaints of flank pain. Patient notes history kidney stones requiring 6 surgical interventions last year by Dr. stevenson. Patient notes nausea flank pain over the past few days TRAVEL OUTSIDE OF THE [place]. IN LAST 30 DAYS: No - HPI Onset: Other Onset/Duration: Persistent Quality of pain: Achy Severity: Mild Pain Level: 1 Associated symptoms: Nausea Exacerbated by: Denies Relieved by: Denies Similar symptoms previously: Yes Recently seen / treated by doctor: Yes - Related Data Allergies/Adverse Reactions: coconut Allergy (Verified 10/28/17 07:56) morphine Allergy (Verified 10/28/17 07:56) aspirin Adverse Reaction (Verified 11/14/17 14:28) Past Medical History - Social History Smoking Status: Current Every Day Smoker Cigarette use (# per day): Yes Chew tobacco use (# tins/day): No Smoking Education Provided: No Frequency of alcohol use: None Drug Abuse: None Family History: None Patient has suicidal ideation: No Patient has homicidal ideation: No Pulmonary Medical History: Reports: Hx Bronchitis, Hx COPD Renal/ Medical History: Reports: Hx Kidney Stones. Denies: Hx Peritoneal Dialysis Psychiatric Medical History: Reports: Hx Attention Deficit Hyperactivity Disorder, Hx Bipolar Disorder Past Surgical History: Reports: Hx Kidney (Renal Surgery), Hx Oral Surgery, Hx Urostomy - Immunizations Hx Diphtheria, Pertussis, Tetanus Vaccination: Yes Review of Systems - Review of Systems Notes: REVIEW OF SYSTEMS: CONSTITUTIONAL : Denies fever, chills, or sweats. Denies recent illness. EENT: Denies eye, ear, throat, or mouth pain or symptoms. Denies nasal or sinus congestion or discharge. Denies throat, tongue, or mouth swelling or difficulty swallowing. CARDIOVASCULAR: Denies chest pain. Denies palpitations or racing or irregular heart beat. Denies ankle edema. RESPIRATORY: Denies cough, cold, or chest congestion. Denies shortness of breath, difficulty breathing, or wheezing. GASTROINTESTINAL: flank pain GENITOURINARY: Denies difficulty urinating, painful urination, burning, frequency, blood in urine, or discharge. FEMALE GENITOURINARY: Denies vaginal bleeding, heavy or abnormal periods, irregular periods. Denies vaginal discharge or odor. MUSCULOSKELETAL: Denies back or neck pain or stiffness. Denies joint pain or swelling. SKIN: Denies rash, lesions or sores. HEMATOLOGIC : Denies easy bruising or bleeding. LYMPHATIC: Denies swollen, enlarged glands. NEUROLOGICAL: Denies confusion or altered mental status. Denies passing out or loss of consciousness. Denies dizziness or lightheadedness. Denies headache. Denies weakness or paralysis or loss of use of either side. Denies problems with gait or speech. Denies sensory loss, numbness, or tingling. Denies seizures. PSYCHIATRIC: Denies anxiety or stress. Denies depression, suicidal ideation, or homicidal ideation. ALL OTHER SYSTEMS REVIEWED AND NEGATIVE. PHYSICAL EXAMINATION: GENERAL: Well-appearing, well-nourished and in no acute distress. HEAD: Atraumatic, normocephalic. EYES: Pupils equal round and reactive to light, extraocular movements intact, conjunctiva are normal. ENT: Nares patent, oropharynx clear without exudates. Moist mucous membranes. NECK: Normal range of motion, supple without lymphadenopathy LUNGS: Breath sounds clear to auscultation bilaterally and equal. No wheezes rales or rhonchi. HEART: Regular rate and rhythm without murmurs ABDOMEN: Soft, nontender, nondistended abdomen. No guarding, no rebound. No masses appreciated. Right sva tenderness Female : deferred Musculoskeletal: Normal range of motion, no pitting or edema. No cyanosis. NEUROLOGICAL: Cranial nerves grossly intact. Normal speech, normal gait. Normal sensory, motor exams PSYCH: Normal mood, normal affect. SKIN: Warm, Dry, normal turgor, no rashes or lesions noted. Dictation was performed using [employer] voice recognition software Physical Exam - Vital signs Vitals: Temp Pulse BP Pulse Ox 98.0 F 97 139/84 H 97 11/14/17 14:21 11/14/17 14:21 11/14/17 14:21 11/14/17 14:21 Course - Re-evaluation Re-evalutation: 11/14/17 14:33 CT pending lab results to rule out retained stone 11/14/17 15:41 CT noted no stones causing any blockage, chronic changes are noted. It is also noted on narcotic drug database patient is received prescriptions from 10 different providers in the past 3 months 11/14/17 15:48 After performing a Medical Screening Examination, I estimate there is LOW risk for ACUTE APPENDICITIS, BOWEL OBSTRUCTION, ACUTE CHOLECYSTITIS, PERFORATED DIVERTICULITIS, INCARCERATED HERNIA, PANCREATITIS, PELVIC INFLAMMATORY DISEASE, PERFORATED ULCER, ECTOPIC , or TUBO-OVARIAN ABSCESS, thus I consider the discharge disposition reasonable. Also, there is no evidence or peritonitis , sepsis, or toxicity. I have reevaluated this patient multiple times and no significant life threatening changes are noted. The patient and I have discussed the diagnosis and risks, and we agree with discharging home with close follow-up with the understanding that symptoms and presentations can change. We also discussed returning to the Emergency Department immediately if new or worsening symptoms occur. We have discussed the symptoms which are most concerning (e.g., bloody stool, fever, changing or worsening pain, vomiting) that necessitate immediate return. - Vital Signs Vital signs: Temp Pulse Resp BP Pulse Ox 98.1 F 97 18 143/82 H 100 11/14/17 15:41 11/14/17 15:41 11/14/17 15:41 11/14/17 15:41 11/14/17 15:41 - Laboratory Result Diagrams: 11/14/17 14:35 11/14/17 14:35 Laboratory results interpreted by me: 11/14/17 11/14/17 14:35 14:35 WBC 11.5 H Urine Blood SMALL H - Diagnostic Test Radiology reviewed: Image reviewed, Reports reviewed - Report given to patient Discharge - Discharge Clinical Impression: Flank pain, History of kidney stones Condition: Stable Disposition: HOME, SELF-CARE Instructions: Flank Pain ([facility]) Prescriptions: Ketorolac Tromethamine [Toradol 10 mg Tablet] 10 mg PO Q8HP PRN #20 tablet PRN Reason: Referrals: LUKE STEVENSON MD [NO LOCAL MD] - Follow up tomorrow
[2017-11-14 14:56] LABS: APPEARANCE,URINE SLIGHTLY-CLOUDY; BILIRUBIN,URINE NEGATIVE (NEGATIVE); COLOR,URINE YELLOW; GLUCOSE, URINE NEGATIVE (NEGATIVE); KETONES,URINE NEGATIVE (NEGATIVE); LEUKOCYTE ESTERASE,URINE NEGATIVE (NEGATIVE); NITRITE,URINE NEGATIVE (NEGATIVE); PROTEIN,URINE NEGATIVE (NEGATIVE); URINE SPECIFIC GRAVITY 1.012; UROBILINOGEN,URINE NEGATIVE mg/dL (<2.0)
[2017-11-14 14:57] LABS: ABSOLUTE BASOPHILS # (AUTO) 0.1 10^3/uL (0.0-0.2); ABSOLUTE EOSINOPHILS # (AUTO) 0.1 10^3/uL (0.0-0.6); ABSOLUTE LYMPHOCYTES (AUTO) 2.8 10^3/uL (0.5-4.7); ABSOLUTE MONOCYTES (AUTO) 0.7 10^3/uL (0.1-1.4); ABSOLUTE NEUT (AUTO) 7.8 10^3/uL (1.7-8.2); EOSINOPHILS % (AUTO) 1.1 % (0-6); HEMATOCRIT 45.4 % (36.0-47.0); HEMOGLOBIN 15.5 g/dL (12.0-15.5); LYMPHOCYTES % (AUTO) 24.5 % (13-45); MEAN CORPUSCULAR HEMOGLOBIN 31.3 pg (27.0-33.4); MEAN CORPUSCULAR VOLUME 92 fl (80-97); MONOCYTES % (AUTO) 5.7 % (3-13); PLATELET COUNT 255 10^3/uL (150-450); RED BLOOD COUNT 4.94 10^6/uL (3.72-5.28); RED CELL DISTRIBUTION WIDTH 12.4 % (11.5-14.0); SEGMENTED NEUTROPHILS % (AUTO) 67.7 % (42-78); TOTAL CELLS COUNTED % (AUTO) 100 %; WHITE BLOOD COUNT 11.5 10^3/uL (4.0-10.5)
--- NOTE | 2017-11-14 15:03 | RADIOLOGY REPORT (SQ) ---
EXAM DESCRIPTION: CT LTD RENAL STONE PROTOCOL ON COMPLETED DATE/TIME: 11/14/2017 2:45 pm REASON FOR STUDY: right flank pain hx stones COMPARISON: CT abdomen and pelvis 06/14/2017, 07/01/2017. Renal ultrasound 08/29/2017. TECHNIQUE: CT scan of the abdomen and pelvis performed without intravenous or oral contrast. Images reviewed with lung, soft tissue, and bone windows. Reconstructed coronal and sagittal MPR images revi ewed. All images stored on PACS. All CT scanners at this facility use dose modulation, iterative reconstruction, and/or weight based d osing when appropriate to reduce radiation dose to as low as reasonably achievable (ALARA). [facility]: Dose Right [facility]: CareDose [facility]: Dose Right [facility]: Teradose 4D [facility]: [employer] RADIATION DOSE: mGy. LIMITATIONS: None. FINDINGS: LOWER CHEST: No consolidation or pleural effusion. NON-CONTRASTED LIVER, SPLEEN, ADRENALS: Evaluation limited by lack of IV contrast. No identified sign ificant masses. PANCREAS: No peripancreatic inflammatory changes. GALLBLADDER: No identified stones by CT criteria. No inflammatory changes to suggest cholecystitis. RIGHT KIDNEY AND URETER: Lobulated contour of the kidney. Assessment for masses limited by lack of I V contrast. Nonobstructing calculi are present, the largest at the inferior pole is measuring 10 mm (448 Hounsfield units). No hydronephrosis or hydroureter. LEFT KIDNEY AND URETER: Lobulated contour of the kidney. Assessment for masses limited by lack of IV contrast. 1.2 cm cortical exophytic hypodense lesion measuring fluid attenuation at the inferior po le of the left kidney, may represent a cyst. Nonobstructing renal calcifications measuring up to 7 m m (828 Hounsfield units). No hydronephrosis or hydroureter. AORTA AND RETROPERITONEUM: No abdominal aortic aneurysm. No retroperitoneal hemorrhage or masses. BOWEL AND PERITONEAL CAVITY: No dilated bowel loops or inflammatory changes. No free fluid. APPENDIX: Normal. PELVIS, BLADDER, AND ABDOMINAL WALL:The urinary bladder is decompressed. The uterus is present. A t ampon is seen at the vagina. No free fluid. There is a small fat containing umbilical hernia. BONES: Degenerative changes at the lower thoracic spine. IMPRESSION: Nonobstructing bilateral nephrolithiasis. No hydronephrosis. Lobulated contour of the kidneys, may be secondary to cortical scarring from prior infections, limited evaluation for renal ma sses in the absence of intravenous contrast. COMMENT: Quality ID # [id number]: Final reports with documentation of one or more dose reduction techniques (e.g., Automated exposure control, adjustment of the mA and/or kV according to patient size, use of iterative reconstruction technique) TECHNICAL DOCUMENTATION: JOB ID: [id number] [place]-64 2010 [employer]- All Rights Reserved
[2017-11-14 15:12] LABS: ALANINE AMINOTRANSFERASE 27 U/L (9-52); ALBUMIN 4.6 g/dL (3.5-5.0); ALKALINE PHOSPHATASE 76 U/L (38-126); ANION GAP 10 (5-19); ASPARTATE AMINO TRANSFERASE 19 U/L (14-36); BILIRUBIN,DIRECT 0.2 mg/dL (0.0-0.4); BILIRUBIN,TOTAL 1.1 mg/dL (0.2-1.3); BLOOD UREA NITROGEN 13 mg/dL (7-20); CALCIUM 9.8 mg/dL (8.4-10.2); CARBON DIOXIDE 27 mmol/L (22-30); CHLORIDE 104 mmol/L (98-107); GLUCOSE 89 mg/dL (75-110); LIPASE 104.2 U/L (23-300); POTASSIUM 4.5 mmol/L (3.6-5.0); SODIUM 140.5 mmol/L (137-145); TOTAL PROTEIN 7.4 g/dL (6.3-8.2)
[2017-11-14 15:42] VITALS: BP 143/82
== END 2017-11-14 15:49 | disposition home or self-care (01) ==
LOC: ER 14:17
DX: R10.9 Unspecified abdominal pain (principal); R11.0 Nausea; F17.210 Nicotine dependence, cigarettes, uncomplicated
CPT/HCPCS: 99284; 96372; 36415; 83690; 85025; 80053; 81001; 76380; J1885

== ENCOUNTER 2017-12-02 01:25 | Emergency (ER) | payer SELFPAY ==
[2017-12-02] MEDS ORDERED: DIPHENHYDRAMINE HCL 50 MG/ML VIAL IV ONE (01:56)
[2017-12-02] MEDS ORDERED: NORMAL SALINE 1000 ML 1,000 ML IV ONE (01:56)
[2017-12-02] MEDS ORDERED: METHOCARBAMOL INJ/PF 1000 MG/10 ML SDV IV ONE (01:56)
[2017-12-02] MEDS ORDERED: PROCHLORPERAZINE EDISYLATE INJ 10 MG/2 ML VIAL IV ONE (01:56)
[2017-12-02] MEDS ORDERED: KETOROLAC TROMETHAMINE INJ/PF 30 MG/1 ML SDV IV ONE (01:57)
--- NOTE | 2017-12-02 01:58 | ER Document Report ---
ED Headache - General Chief Complaint: Headache Stated Complaint: HEADACHE Time Seen by Provider: 12/02/17 01:49 Notes: Patient is a 26-year-old female comes emergency department for chief complaint of headache, headache has been intermittent for the past 3 days, she states she feels a pain in her neck and at the base of her skull with pain wrapping around her forehead as well. She reports that she has developed photophobia and nausea today. Headache has slowly gotten worse. She denies head injury, neck injury, fever or chills, vomiting. She states she took Toradol and Percocet earlier, she has these to take as needed for kidney stones/kidney pain. TRAVEL OUTSIDE OF THE [place] IN LAST 30 DAYS: No - Related Data Allergies/Adverse Reactions: coconut Allergy (Verified 10/28/17 07:56) morphine Allergy (Verified 10/28/17 07:56) aspirin Adverse Reaction (Verified 11/14/17 14:28) Past Medical History - General Information source: Patient - Social History Smoking Status: Current Every Day Smoker Chew tobacco use (# tins/day): No Frequency of alcohol use: None Drug Abuse: None Lives with: Family Family History: None Patient has suicidal ideation: No Patient has homicidal ideation: No Pulmonary Medical History: Reports: Hx Bronchitis, Hx COPD Renal/ Medical History: Reports: Hx Kidney Stones. Denies: Hx Peritoneal Dialysis Psychiatric Medical History: Reports: Hx Attention Deficit Hyperactivity Disorder, Hx Bipolar Disorder Past Surgical History: Reports: Hx Kidney (Renal Surgery), Hx Oral Surgery, Hx Urostomy - Immunizations Hx Diphtheria, Pertussis, Tetanus Vaccination: Yes Review of Systems - Review of Systems Constitutional: No symptoms reported EENT: No symptoms reported Cardiovascular: No symptoms reported Respiratory: No symptoms reported Gastrointestinal: No symptoms reported Genitourinary: No symptoms reported Female Genitourinary: No symptoms reported Musculoskeletal: No symptoms reported Skin: No symptoms reported Hematologic/Lymphatic: No symptoms reported Neurological/Psychological: See HPI Physical Exam - Vital signs Vitals: Temp Pulse Resp BP Pulse Ox 98.8 F 114 H 16 142/92 H 97 12/02/17 01:31 12/02/17 01:31 12/02/17 01:31 12/02/17 01:31 12/02/17 01:31 Interpretation: Normal - General General appearance: Alert In distress: None - Patient covering her eyes but otherwise she does not appear to be in distress - HEENT Head: Normocephalic, Atraumatic Eyes: Normal Pupils: PERRL - Respiratory Respiratory status: No respiratory distress Chest status: Nontender Breath sounds: Normal Chest palpation: Normal - Cardiovascular Rhythm: Regular Heart sounds: Normal auscultation Murmur: No - Abdominal Inspection: Normal Distension: No distension Bowel sounds: Normal Tenderness: Nontender Organomegaly: No organomegaly - Back Back: Tender - Tenderness in the left paracervical musculature, no midline tenderness, slightly limited lateral range of motion, normal flexion and extension of the neck. Normal back exam otherwise with normal distal neurovascular exam.. No: Vertebra tenderness - Extremities General upper extremity: Normal inspection, Nontender, Normal color, Normal ROM , Normal temperature General lower extremity: Normal inspection, Nontender, Normal color, Normal ROM , Normal temperature, Normal weight bearing. 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 Normal neurological exam, patient does not appear to be in distress although she does shield her eyes from light. Will try migraine cocktail and reassess. On reexamination patient states she feels much better, she was able to sleep, she is easily arousable, she states the "throbbing has finally stopped". She states she feels much better and she wants to go home. Headache was not maximal in onset, responded to treatment, no neurological deficits. Patient will be treated with outpatient medication, discussed follow-up and return precautions, patient states understanding and agreement. - Vital Signs Vital signs: Temp Pulse Resp BP Pulse Ox 98.7 F 92 18 132/80 H 99 12/02/17 04:24 12/02/17 04:24 12/02/17 04:24 12/02/17 04:24 12/02/17 04:24 Discharge - Discharge Clinical Impression: Headache Qualifiers: Headache type: unspecified Headache chronicity pattern: acute headache Intractability: not intractable Qualified Code(s): R51 - Headache Condition: Stable Disposition: HOME, SELF-CARE Additional Instructions: Your evaluation, symptoms, and response to treatment are most consistent with a tension headache triggering a migraine. I recommend that you take the muscle relaxer as prescribed, apply heat to her neck, do gentle stretches of your neck , avoid lifting/twisting if possible, take the Fioricet if needed for headaches , continue current medications, and follow-up with primary care. Return if you worsen including returned or worsening headache, vomiting, fever, or any other concerning symptoms. Prescriptions: Butalb/Acetaminophen/Caffeine [Fioricet (50-325-40 mg) Tablet] 1 tab PO Q4HP PRN #30 tab PRN Reason: Methocarbamol [Robaxin 750 mg Tablet] 750 mg PO Q6 #20 tablet Forms: Elevated Blood Pressure, Smoking Cessation Education
[2017-12-02 04:25] VITALS: BP 132/80
== END 2017-12-02 04:26 | disposition home or self-care (01) ==
LOC: ER 01:25
DX: R51 Headache (principal); M54.2 Cervicalgia; H53.149 Visual discomfort, unspecified; R11.0 Nausea; J44.9 Chronic obstructive pulmonary disease, unspecified; F17.200 Nicotine dependence, unspecified, uncomplicated; Z91.018 Allergy to other foods; Z88.5 Allergy status to narcotic agent
CPT/HCPCS: 99284; 96361; 96374; 96375; J1200; J2800; J1885; J0780; J7030

== ENCOUNTER 2017-12-17 18:23 | Emergency (ER) | payer SELFPAY ==
[2017-12-17 18:31] VITALS: BP 140/102
[2017-12-17] MEDS ORDERED: HYDROMORPHONE HCL INJ/PF 2 MG/ML AMPULE IV ONE (18:58)
[2017-12-17] MEDS ORDERED: ONDANSETRON HCL INJ/PF 4 MG/2 ML SDV IV ONE (18:59)
--- NOTE | 2017-12-17 19:00 | ER Document Report ---
ED Medical Screen (RME) - General Chief Complaint: Possible Kidney Stone Stated Complaint: RIGHT FLANK PAIN Time Seen by Provider: 12/17/17 18:57 Mode of Arrival: Ambulatory Information source: Patient Notes: 26-year-old patient with a significant history for recurrent kidney stones presents right flank pain for the past 3 days. TRAVEL OUTSIDE OF THE [place] IN LAST 30 DAYS: No - Related Data Allergies/Adverse Reactions: coconut Allergy (Verified 12/17/17 18:27) morphine Allergy (Verified 12/17/17 18:27) aspirin Adverse Reaction (Verified 12/17/17 18:27) Past Medical History - Social History Chew tobacco use (# tins/day): No Frequency of alcohol use: None Drug Abuse: None Family history: Reviewed & Not Pertinent Pulmonary Medical History: Reports: Hx Bronchitis, Hx COPD Renal/ Medical History: Reports: Hx Kidney Stones. Denies: Hx Peritoneal Dialysis Psychiatric Medical History: Reports: Hx Attention Deficit Hyperactivity Disorder, Hx Bipolar Disorder Past Surgical History: Reports: Hx Kidney (Renal Surgery), Hx Oral Surgery, Hx Urostomy - Immunizations Hx Diphtheria, Pertussis, Tetanus Vaccination: Yes History of Influenza Vaccine for 07/2017 - 12/2017 Season: Yes Physical Exam - Vital signs Vitals: Temp Pulse Resp BP Pulse Ox 97.8 F 92 16 140/102 H 100 12/17/17 18:29 12/17/17 18:29 12/17/17 18:29 12/17/17 18:29 12/17/17 18:29 Course - Vital Signs Vital signs: Temp Pulse Resp BP Pulse Ox 97.8 F 92 16 140/102 H 100 12/17/17 18:29 12/17/17 18:29 12/17/17 18:29 12/17/17 18:29 12/17/17 18:29
[2017-12-17 19:23] LABS: ABSOLUTE BASOPHILS # (AUTO) 0.1 10^3/uL (0.0-0.2); ABSOLUTE EOSINOPHILS # (AUTO) 0.1 10^3/uL (0.0-0.6); ABSOLUTE LYMPHOCYTES (AUTO) 3.5 10^3/uL (0.5-4.7); ABSOLUTE MONOCYTES (AUTO) 0.6 10^3/uL (0.1-1.4); ABSOLUTE NEUT (AUTO) 7.9 10^3/uL (1.7-8.2); BASOPHILS % (AUTO) 0.8 % (0-2); EOSINOPHILS % (AUTO) 0.8 % (0-6); HEMATOCRIT 48.2 % (36.0-47.0); HEMOGLOBIN 16.2 g/dL (12.0-15.5); LYMPHOCYTES % (AUTO) 28.3 % (13-45); MEAN CORPUSCULAR HEMOGLOBIN 30.8 pg (27.0-33.4); MEAN CORPUSCULAR HGB CONC 33.6 g/dL (32.0-36.0); MEAN CORPUSCULAR VOLUME 92 fl (80-97); MONOCYTES % (AUTO) 5.2 % (3-13); PLATELET COUNT 285 10^3/uL (150-450); RED BLOOD COUNT 5.26 10^6/uL (3.72-5.28); RED CELL DISTRIBUTION WIDTH 12.3 % (11.5-14.0); SEGMENTED NEUTROPHILS % (AUTO) 64.9 % (42-78); TOTAL CELLS COUNTED % (AUTO) 100 %; WHITE BLOOD COUNT 12.2 10^3/uL (4.0-10.5)
[2017-12-17 19:26] LABS: AMORPHOUS SEDIMENT,URINE TRACE /HPF; APPEARANCE,URINE SLIGHTLY-CLOUDY; BILIRUBIN,URINE NEGATIVE (NEGATIVE); COLOR,URINE YELLOW; GLUCOSE, URINE NEGATIVE (NEGATIVE); KETONES,URINE NEGATIVE (NEGATIVE); LEUKOCYTE ESTERASE,URINE TRACE (NEGATIVE); NITRITE,URINE NEGATIVE (NEGATIVE); PROTEIN,URINE NEGATIVE (NEGATIVE); URINE SPECIFIC GRAVITY 1.018
[2017-12-17 19:38] LABS: ALANINE AMINOTRANSFERASE 32 U/L (9-52); ALBUMIN 4.9 g/dL (3.5-5.0); ALKALINE PHOSPHATASE 79 U/L (38-126); ANION GAP 12 (5-19); ASPARTATE AMINO TRANSFERASE 17 U/L (14-36); BILIRUBIN,DIRECT 0.1 mg/dL (0.0-0.4); BILIRUBIN,TOTAL 0.5 mg/dL (0.2-1.3); BLOOD UREA NITROGEN 12 mg/dL (7-20); CARBON DIOXIDE 23 mmol/L (22-30); CHLORIDE 108 mmol/L (98-107); GLUCOSE 85 mg/dL (75-110); POTASSIUM 4.7 mmol/L (3.6-5.0); SODIUM 142.9 mmol/L (137-145); TOTAL PROTEIN 7.5 g/dL (6.3-8.2)
[2017-12-17] MEDS: NORMAL SALINE 1000 ML 1,000 ML IV PRN ×2 (19:41→22:26)
[2017-12-17] MEDS ORDERED: FENTANYL CITRATE INJ/PF 100 MCG/2 ML AMPUL IV ONE ×2 (20:18→21:55)
--- NOTE | 2017-12-17 21:20 | RADIOLOGY REPORT (SQ) ---
EXAM DESCRIPTION: U/S RETROPERITON LTD COMPLETED DATE/TIME: 12/17/2017 9:12 pm REASON FOR STUDY: right flank pain r/o hydronephrosis COMPARISON: CT from 11/14/2017 and ultrasound from 08/29/2017 TECHNIQUE: Dynamic and static grayscale images acquired of the kidneys and bladder and recorded on P ACS. Additional selected color Doppler and spectral images recorded. LIMITATIONS: BODY WALL ACOUSTICS. FINDINGS: RIGHT KIDNEY: Normal size. Normal echogenicity. No solid or suspicious masses. No h ydronephrosis. Stable nonobstructing renal calculi. LEFT KIDNEY: Normal size. Normal echogenicity. Simple cyst left kidney. No solid masses. No h ydronephrosis. No obstructing calculi. BLADDER: No masses. OTHER FINDINGS: No other significant finding. IMPRESSION: BILATERAL NEPHROLITHIASIS WITHOUT OBSTRUCTIVE UROPATHY. TECHNICAL DOCUMENTATION: JOB ID: [id number] [employer]- All Rights Reserved Reading location - IP/workstation name: [email or web address]
[2017-12-17] MEDS ORDERED: ONDANSETRON ODT 4 MG TAB (6 TAB/ER DISP) PO PRN (21:55)
[2017-12-17] MEDS ORDERED: HYDROCODONE/ACETAMINOPHEN 5-325 MG (6 TAB/ER DISP) PO PRN (21:55)
--- NOTE | 2017-12-17 21:59 | ER Document Report ---
ED General - General Chief Complaint: Possible Kidney Stone Stated Complaint: RIGHT FLANK PAIN Time Seen by Provider: 12/17/17 18:57 Mode of Arrival: Ambulatory Notes: Patient is a 26-year-old female, identifies as a male, who presents with 3 days bilateral flank tenderness worse in the left versus right which he states feels very similar to prior kidney stones. Patient has had multiple similar presentations to the emergency department in the past several months. He states that the pain as a severe, constant throbbing pain worsened by urination and movement. He has not tried otcy-rry-[id number] pain medication location without any significant improvement to his symptoms. He is scheduled follow-up with Dr. stevenson his urologist but is not able to do so until the end of the month. He denies any fever, constitutional symptoms, but does note intermittent nausea and vomiting. TRAVEL OUTSIDE OF THE [place] IN LAST 30 DAYS: No - Related Data Allergies/Adverse Reactions: coconut Allergy (Verified 12/17/17 18:27) morphine Allergy (Verified 12/17/17 18:27) aspirin Adverse Reaction (Verified 12/17/17 18:27) Past Medical History - General Information source: Patient - Social History Smoking Status: Former Smoker Chew tobacco use (# tins/day): No Frequency of alcohol use: None Drug Abuse: None Lives with: Spouse/Significant other Family History: Reviewed & Not Pertinent Patient has suicidal ideation: No Patient has homicidal ideation: No Pulmonary Medical History: Reports: Hx Bronchitis, Hx COPD Renal/ Medical History: Reports: Hx Kidney Stones. Denies: Hx Peritoneal Dialysis Psychiatric Medical History: Reports: Hx Attention Deficit Hyperactivity Disorder, Hx Bipolar Disorder Past Surgical History: Reports: Hx Kidney (Renal Surgery), Hx Oral Surgery, Hx Urostomy - Immunizations Hx Diphtheria, Pertussis, Tetanus Vaccination: Yes Review of Systems - Review of Systems Notes: Constitutional: Negative for fever. HENT: Negative for sore throat. Eyes: Negative for visual changes. Cardiovascular: Negative for chest pain. Respiratory: Negative for shortness of breath. Gastrointestinal: Positive for flank tenderness and vomiting Genitourinary: Positive for dysuria. Musculoskeletal: Negative for back pain. Skin: Negative for rash. Neurological: Negative for headaches, weakness or numbness. 10 point ROS negative except as marked above and in HPI. Physical Exam - Vital signs Vitals: Temp Pulse Resp BP Pulse Ox 97.8 F 92 16 140/102 H 100 12/17/17 18:29 0318 18:29 03 18:29 12/17/17 18:29 12/17/17 18:29 Interpretation: Normal Notes: PHYSICAL EXAMINATION: GENERAL: Appears mildly uncomfortable but in no acute distress HEAD: Atraumatic, normocephalic. EYES: Pupils equal round and reactive to light, extraocular movements intact, sclera anicteric, conjunctiva are normal. ENT: nares patent, oropharynx clear without exudates. Moderately dry mucous membranes. NECK: Normal range of motion, supple without lymphadenopathy LUNGS: Breath sounds clear to auscultation bilaterally and equal. No wheezes rales or rhonchi. HEART: Regular rate and rhythm without murmurs ABDOMEN: Soft, nontender, normoactive bowel sounds. No guarding, no rebound. No masses appreciated. Bilateral CVA tenderness, worse on the left EXTREMITIES: Normal range of motion, no pitting or edema. No cyanosis. NEUROLOGICAL: No focal neurological deficits. Moves all extremities spontaneously and on command. PSYCH: Normal mood, normal affect. SKIN: Warm, Dry, normal turgor, no rashes or lesions noted. Course - Re-evaluation Re-evalutation: 12/17/17 21:56 Patient presents with complaints of bilateral flank pain worse on the right which she states is somewhat when she has had kidney stones in the past. Patient has had recurrent visits to the emergency department for the same, usually found to have nephrolithiasis without any evidence of acute urolithiasis or obstruction. Urinalysis does show very mild hematuria. Laboratory otherwise unremarkable. Pain was able to be controlled here in the emergency department. Patient is tolerating oral intake. Clinical history is not consistent with an acute abdominal aneurysm or dissection, LA, or pulmonary embolus. Urinalysis does not show findings consistent with an infected stone. Renal ultrasound shows nephrolithiasis without any evidence of hydronephrosis. Vitals have remained within normal limits. Patient will be discharged with recommendations to follow-up with urology and return precautions. At this time will discharge with return precautions and follow-up recommendations. Verbal discharge instructions given a the bedside and opportunity for questions given. Medication warnings reviewed. Patient is in agreement with this plan and has verbalized understanding of return precautions and the need for primary care follow-up in the next 24-72 hours. - Vital Signs Vital signs: Temp Pulse Resp BP Pulse Ox 97.8 F 92 16 140/102 H 100 12/17/17 18:29 12/17/17 18:29 12/17/17 18:29 12/17/17 18:29 12/17/17 18:29 - Laboratory Result Diagrams: 12/17/17 19:10 12/17/17 19:10 Laboratory results interpreted by me: 12/17/17 12/17/17 12/17/17 18:32 19:10 19:10 WBC 12.2 H Hgb 16.2 H Hct 48.2 H Chloride 108 H Urine Urobilinogen 2.0 H Ur Leukocyte Esterase TRACE H - Diagnostic Test Radiology reviewed: Reports reviewed Discharge - Discharge Clinical Impression: Flank pain, Nephrolithiasis Nausea and vomiting Qualifiers: Vomiting type: unspecified Vomiting Intractability: non-intractable Qualified Code(s): R11.2 - Nausea with vomiting, unspecified Condition: Good Disposition: HOME, SELF-CARE Additional Instructions: Your ultrasound showed stones in your kidneys does not suggest any evidence of stones in the tube that connects your kidneys to your bladder. Your urine does not show any evidence of infection. Please follow-up with your urologist as scheduled. Take ibuprofen and Tylenol as needed for pain. Take the Zofran that she been sent home with as needed for nausea. Return if you develop fever , persistent vomiting, pass out, or have any other symptoms that are worrisome to you. Forms: Return to Work Referrals: JEANETTE AVILA II, MD [[facility]] - Follow up as needed
== END 2017-12-17 22:30 | disposition home or self-care (01) ==
LOC: ER 18:23
DX: N20.0 Calculus of kidney (principal); R11.2 Nausea with vomiting, unspecified; R10.9 Unspecified abdominal pain; Z87.891 Personal history of nicotine dependence
CPT/HCPCS: 96376; 99284; 96361; 96374; 96375; 36415; 85025; 80053; 81001; 76775; J3010; J1170; J2405; J7030

== ENCOUNTER 2018-01-14 20:14 | Emergency (ER) | payer SELFPAY ==
[2018-01-14 22:11] LABS: ABSOLUTE BASOPHILS # (AUTO) 0.1 10^3/uL (0.0-0.2); ABSOLUTE EOSINOPHILS # (AUTO) 0.1 10^3/uL (0.0-0.6); ABSOLUTE LYMPHOCYTES (AUTO) 3.5 10^3/uL (0.5-4.7); ABSOLUTE MONOCYTES (AUTO) 0.8 10^3/uL (0.1-1.4); ABSOLUTE NEUT (AUTO) 9.8 10^3/uL (1.7-8.2); BASOPHILS % (AUTO) 0.5 % (0-2); EOSINOPHILS % (AUTO) 0.9 % (0-6); HEMATOCRIT 46.3 % (36.0-47.0); LYMPHOCYTES % (AUTO) 24.5 % (13-45); MEAN CORPUSCULAR HEMOGLOBIN 31.5 pg (27.0-33.4); MEAN CORPUSCULAR HGB CONC 34.5 g/dL (32.0-36.0); MEAN CORPUSCULAR VOLUME 91 fl (80-97); MONOCYTES % (AUTO) 5.7 % (3-13); PLATELET COUNT 298 10^3/uL (150-450); RED BLOOD COUNT 5.08 10^6/uL (3.72-5.28); RED CELL DISTRIBUTION WIDTH 12.6 % (11.5-14.0); SEGMENTED NEUTROPHILS % (AUTO) 68.4 % (42-78); TOTAL CELLS COUNTED % (AUTO) 100 %; WHITE BLOOD COUNT 14.3 10^3/uL (4.0-10.5)
[2018-01-14 22:22] LABS: CALCIUM OXALATE CRYSTALS,URINE MODERATE /HPF
[2018-01-14 22:28] LABS: APPEARANCE,URINE CLEAR; BILIRUBIN,URINE NEGATIVE (NEGATIVE); COLOR,URINE YELLOW; GLUCOSE, URINE NEGATIVE (NEGATIVE); KETONES,URINE NEGATIVE (NEGATIVE); NITRITE,URINE NEGATIVE (NEGATIVE); PROTEIN,URINE NEGATIVE (NEGATIVE); URINE SPECIFIC GRAVITY 1.029
[2018-01-14 22:29] LABS: LEUKOCYTE ESTERASE,URINE TRACE (NEGATIVE)
[2018-01-14 22:36] LABS: ALANINE AMINOTRANSFERASE 37 U/L (9-52); ALBUMIN 4.5 g/dL (3.5-5.0); ALKALINE PHOSPHATASE 79 U/L (38-126); ANION GAP 12 (5-19); ASPARTATE AMINO TRANSFERASE 20 U/L (14-36); BILIRUBIN,DIRECT 0.1 mg/dL (0.0-0.4); BILIRUBIN,TOTAL 0.3 mg/dL (0.2-1.3); BLOOD UREA NITROGEN 11 mg/dL (7-20); CALCIUM 9.5 mg/dL (8.4-10.2); CARBON DIOXIDE 24 mmol/L (22-30); CHLORIDE 105 mmol/L (98-107); GLUCOSE 93 mg/dL (75-110); LIPASE 81.6 U/L (23-300); POTASSIUM 4.3 mmol/L (3.6-5.0); SODIUM 140.8 mmol/L (137-145)
[2018-01-14] MEDS ORDERED: OXYCODONE-ACETAMINOPHEN 5-325 MG TABLET PO ONE (23:59)
--- NOTE | 2018-01-15 00:26 | RADIOLOGY REPORT (SQ) ---
EXAM DESCRIPTION: KUB/ABDOMEN (SINGLE VIEW) CLINICAL HISTORY: 27 years, Female, Abdominal pain COMPARISON: None. NUMBER OF VIEWS: 2 FINDINGS: Intestinal gas pattern is within normal limits. Moderate right and transverse colonic stool retention. Possible small anterolisthesis of the left paracentral abdomen. Possible right nephrolithiasis measuring up to 1.1 cm. No suspicious calcification. Grossly intact skeletal structures. IMPRESSION: No acute findings. Possible 1.1 cm right nephrolithiasis.
--- NOTE | 2018-01-15 01:05 | ER Document Report ---
ED GI/ - General Chief Complaint: Possible Kidney Stone Stated Complaint: FLANK PAIN Time Seen by Provider: 01/14/18 23:49 Mode of Arrival: Ambulatory Information source: Patient Notes: History of complain-27 years old female presents today with right flank pain and right upper quadrant pain with a history of kidney stones. Associated with slight nausea no vomiting. Denies any dysuria frequency or urgency. Denies any hematuria. Denies any fever chills or other constitutional symptoms. REVIEW OF SYSTEMS: CONSTITUTIONAL : Denies fever, chills, or sweats. Denies recent illness. EENT: Denies eye, ear, throat, or mouth pain or symptoms. Denies nasal or sinus congestion or discharge. Denies throat, tongue, or mouth swelling or difficulty swallowing. CARDIOVASCULAR: Denies chest pain. Denies palpitations or racing or irregular heart beat. Denies ankle edema. RESPIRATORY: Denies cough, cold, or chest congestion. Denies shortness of breath, difficulty breathing, or wheezing. GASTROINTESTINAL: Denies abdominal pain or distention. Denies nausea, vomiting , or diarrhea. Denies blood in vomitus, stools, or per rectum. Denies black, tarry stools. Denies constipation. GENITOURINARY: Denies difficulty urinating, painful urination, burning, frequency, blood in urine, or discharge. FEMALE GENITOURINARY: Denies vaginal bleeding, heavy or abnormal periods, irregular periods. Denies vaginal discharge or odor. MUSCULOSKELETAL: Denies back or neck pain or stiffness. Denies joint pain or swelling. SKIN: Denies rash, lesions or sores. HEMATOLOGIC : Denies easy bruising or bleeding. LYMPHATIC: Denies swollen, enlarged glands. NEUROLOGICAL: Denies confusion or altered mental status. Denies passing out or loss of consciousness. Denies dizziness or lightheadedness. Denies headache. Denies weakness or paralysis or loss of use of either side. Denies problems with gait or speech. Denies sensory loss, numbness, or tingling. Denies seizures. PSYCHIATRIC: Denies anxiety or stress. Denies depression, suicidal ideation, or homicidal ideation. ALL OTHER SYSTEMS REVIEWED AND NEGATIVE. PHYSICAL EXAMINATION: GENERAL: Well-appearing, well-nourished and in no acute distress. obesity HEAD: Atraumatic, normocephalic. EYES: Pupils equal round and reactive to light, extraocular movements intact, conjunctiva are normal. ENT: Nares patent, oropharynx clear without exudates. Moist mucous membranes. NECK: Normal range of motion, supple without lymphadenopathy LUNGS: Breath sounds clear to auscultation bilaterally and equal. No wheezes rales or rhonchi. HEART: Regular rate and rhythm without murmurs ABDOMEN: Soft, tenderness over the right upper quadrant noted. No rebound tenderness or guarding., nondistended abdomen. No guarding, no rebound. No masses appreciated. Female : deferred Musculoskeletal: Normal range of motion, no pitting or edema. No cyanosis. NEUROLOGICAL: Cranial nerves grossly intact. Normal speech, normal gait. Normal sensory, motor exams PSYCH: Normal mood, normal affect. SKIN: Warm, Dry, normal turgor, no rashes or lesions noted. Dictation was performed using [employer] voice recognition software TRAVEL OUTSIDE OF THE [place] IN LAST 30 DAYS: No - HPI Patient complains to provider of: Abdominal pain Onset: Yesterday Timing/Duration: Gradual Quality of pain: Achy Severity at maximum: Moderate Pain Level: 2 Location: RUQ - Go to the OR and fix the problem - Related Data Allergies/Adverse Reactions: coconut Allergy (Verified 12/17/17 18:27) morphine Allergy (Verified 12/17/17 18:27) aspirin Adverse Reaction (Verified 12/17/17 18:27) Past Medical History - Social History Smoking Status: Current Every Day Smoker Cigarette use (# per day): No Chew tobacco use (# tins/day): No Frequency of alcohol use: Rare Drug Abuse: None Lives with: Family Family History: Reviewed & Not Pertinent Pulmonary Medical History: Reports: Hx Bronchitis, Hx COPD Renal/ Medical History: Reports: Hx Kidney Stones. Denies: Hx Peritoneal Dialysis Psychiatric Medical History: Reports: Hx Attention Deficit Hyperactivity Disorder, Hx Bipolar Disorder Past Surgical History: Reports: Hx Kidney (Renal Surgery), Hx Oral Surgery, Hx Urostomy - Immunizations Hx Diphtheria, Pertussis, Tetanus Vaccination: Yes Review of Systems - Review of Systems Notes: As per history of complain Physical Exam - Vital signs Vitals: Temp Pulse Resp BP Pulse Ox 98.3 F 105 H 18 145/92 H 97 01/14/18 20:19 01/14/18 20:19 01/14/18 20:19 01/14/18 20:19 01/14/18 20:19 Course - Re-evaluation Re-evalutation: 01/15/18 02:20 Stay was uneventful. Given Percocet for pain. - Vital Signs Vital signs: Temp Pulse Resp BP Pulse Ox 98.3 F 105 H 18 145/92 H 97 01/14/18 20:19 01/14/18 20:19 01/14/18 20:19 01/14/18 20:19 01/14/18 20:19 - Laboratory Result Diagrams: 01/14/18 21:30 01/14/18 21:30 Laboratory results interpreted by me: 01/14/18 01/14/18 21:30 21:30 WBC 14.3 H Hgb 16.0 H Absolute Neutrophils 9.8 H Urine Urobilinogen 2.0 H Ur Leukocyte Esterase TRACE H - Diagnostic Test Radiology reviewed: Reports reviewed - 1. KUB reported by radiologist as no significant finding except intrarenal stone. 2. Ultrasound of the abdomen reported by radiologist as bilateral nephrolithiasis. Discharge - Discharge Clinical Impression: Bilateral nephrolithiasis Condition: Fair Disposition: HOME, SELF-CARE Instructions: Kidney Stone ([facility]) Prescriptions: Hydrocodone/Acetaminophen [Vicodin 5-300 mg Tablet] 1 each PO Q6HP PRN #10 tablet PRN Reason: Referrals: LOCALMD,NO [Primary Care Provider] - Follow up as needed
--- NOTE | 2018-01-15 01:30 | RADIOLOGY REPORT (SQ) ---
EXAM DESCRIPTION: U/S ABDOMEN COMPLETE W/O DOP CLINICAL HISTORY: 27 years, Female, Rule out cholecystitis COMPARISON: CT, 11/14/2017. LIMITATIONS: As below. FINDINGS: Gallbladder, negative sonographic Naik's test, spleen, liver, partially obscured aorta, obscured pancreas, hepatobiliary ductal system including a 0.5 cm diameter common bile duct, 14 cm macrolobulated right kidney, 11 cm macrolobulated left kidney, bilateral nephrolithiasis measuring up to 1.1 cm on the right, and no ascites appear otherwise unremarkable. IMPRESSION: No acute findings. Bilateral nephrolithiasis. Limitation.
[2018-01-15 03:20] VITALS: BP 138/84
== END 2018-01-15 02:40 | disposition home or self-care (01) ==
LOC: ER 20:14
DX: N20.0 Calculus of kidney (principal); R10.11 Right upper quadrant pain; R11.0 Nausea; F17.200 Nicotine dependence, unspecified, uncomplicated; J44.9 Chronic obstructive pulmonary disease, unspecified
CPT/HCPCS: 36415; 74018; 76700; 80053; 81001; 81025; 83690; 85025; 99284

== ENCOUNTER 2018-03-22 20:54 | Emergency (ER) | payer SELFPAY ==
[2018-03-22] MEDS ORDERED: FENTANYL CITRATE INJ/PF 100 MCG/2 ML AMPUL IV ONE (22:56)
[2018-03-22] MEDS ORDERED: NORMAL SALINE 1000 ML 1,000 ML IV ONE (22:56)
[2018-03-22] MEDS ORDERED: TETRACAINE HCL 0.5% OPH SOLN 2 ML OD ONE (22:56)
[2018-03-22] MEDS ORDERED: ONDANSETRON HCL INJ/PF 4 MG/2 ML SDV IV ONE (22:56)
[2018-03-22 23:29] LABS: ABSOLUTE BASOPHILS # (AUTO) 0.1 10^3/uL (0.0-0.2); ABSOLUTE EOSINOPHILS # (AUTO) 0.1 10^3/uL (0.0-0.6); ABSOLUTE LYMPHOCYTES (AUTO) 3.8 10^3/uL (0.5-4.7); ABSOLUTE MONOCYTES (AUTO) 0.8 10^3/uL (0.1-1.4); ABSOLUTE NEUT (AUTO) 11.5 10^3/uL (1.7-8.2); BASOPHILS % (AUTO) 0.7 % (0-2); EOSINOPHILS % (AUTO) 0.8 % (0-6); HEMATOCRIT 44.4 % (36.0-47.0); HEMOGLOBIN 15.2 g/dL (12.0-15.5); LYMPHOCYTES % (AUTO) 23.3 % (13-45); MEAN CORPUSCULAR HEMOGLOBIN 31.1 pg (27.0-33.4); MEAN CORPUSCULAR HGB CONC 34.1 g/dL (32.0-36.0); MEAN CORPUSCULAR VOLUME 91 fl (80-97); MONOCYTES % (AUTO) 5.1 % (3-13); PLATELET COUNT 246 10^3/uL (150-450); RED BLOOD COUNT 4.87 10^6/uL (3.72-5.28); RED CELL DISTRIBUTION WIDTH 12.1 % (11.5-14.0); SEGMENTED NEUTROPHILS % (AUTO) 70.1 % (42-78); TOTAL CELLS COUNTED % (AUTO) 100 %; WHITE BLOOD COUNT 16.4 10^3/uL (4.0-10.5)
[2018-03-22 23:36] LABS: APPEARANCE,URINE SLIGHTLY-CLOUDY; BILIRUBIN,URINE NEGATIVE (NEGATIVE); CALCIUM OXALATE CRYSTALS,URINE MODERATE /HPF; COLOR,URINE YELLOW; GLUCOSE, URINE NEGATIVE (NEGATIVE); KETONES,URINE NEGATIVE (NEGATIVE); LEUKOCYTE ESTERASE,URINE SMALL (NEGATIVE); NITRITE,URINE NEGATIVE (NEGATIVE); PROTEIN,URINE NEGATIVE (NEGATIVE)
[2018-03-22 23:40] LABS: ANION GAP 9 (5-19); BLOOD UREA NITROGEN 12 mg/dL (7-20); CALCIUM 9.4 mg/dL (8.4-10.2); CARBON DIOXIDE 27 mmol/L (22-30); CHLORIDE 108 mmol/L (98-107); GLUCOSE 101 mg/dL (75-110); POTASSIUM 3.9 mmol/L (3.6-5.0); SODIUM 143.6 mmol/L (137-145)
[2018-03-23] MEDS ORDERED: HYDROMORPHONE HCL INJ/PF 2 MG/ML AMPULE IV ONE (00:13)
[2018-03-23] MEDS ORDERED: BESIFLOXACIN HCL 0.6% OPH SUSP 5 ML BOTTLE OD ONE (01:09)
--- NOTE | 2018-03-23 02:12 | RADIOLOGY REPORT (SQ) ---
EXAM DESCRIPTION: US RETROPERITONEUM CLINICAL HISTORY: 27 years Female, right sided pain COMPARISON: CT, 11.14.17. TECHNIQUE/LIMITATION: No Limitation. FINDINGS: 12 cm bilateral kidneys, multiple echogenic foci bilaterally consistent with renal stones measuring up to 2.0 cm on the right and 1.3 cm on the left. There is nonspecific prominence of the right renal collecting system. 1.8 cm likely benign cyst of the inferior pole, left kidney not definitively characterized. Urinary bladder demonstrates left ureteral jet flow on Doppler sonogram. Right ureteral jet was not observed, a nonspecific finding. Urinary bladder is otherwise unremarkable. IMPRESSION: Bilateral nephrolithiasis.
--- NOTE | 2018-03-23 02:17 | ER Document Report ---
ED General - General Chief Complaint: Flank Pain Stated Complaint: FLANK PAIN, RIGHT EYE IRRITATION Time Seen by Provider: 03/22/18 22:41 Notes: Patient is a 27-year-old female who presents with complaint of eye irritation. Patient says she wears contacts. Her right eye has been red and irritated. She is unsure if she scraped her with a contact. She has removed her eye contact. She says that her eye feels "like there is gravel or sand in it". Her second complaint is of flank pain. She says bilateral but worse on the right. She does have a history of kidney stones. She has had some nausea and vomiting. She also has had some dysuria and urinary frequency. No fevers. TRAVEL OUTSIDE OF THE [place] IN LAST 30 DAYS: No - Related Data Allergies/Adverse Reactions: coconut Allergy (Verified 12/17/17 18:27) morphine Allergy (Verified 12/17/17 18:27) aspirin Adverse Reaction (Verified 12/17/17 18:27) Past Medical History - Social History Smoking Status: Current Every Day Smoker Frequency of alcohol use: None Drug Abuse: None Family History: Reviewed & Not Pertinent Patient has suicidal ideation: No Patient has homicidal ideation: No Pulmonary Medical History: Reports: Hx Bronchitis, Hx COPD Renal/ Medical History: Reports: Hx Kidney Stones. Denies: Hx Peritoneal Dialysis Psychiatric Medical History: Reports: Hx Attention Deficit Hyperactivity Disorder, Hx Bipolar Disorder Past Surgical History: Reports: Hx Kidney (Renal Surgery), Hx Oral Surgery, Hx Urostomy - Immunizations Hx Diphtheria, Pertussis, Tetanus Vaccination: Yes Review of Systems - Review of Systems Notes: My Normal Review Basic REVIEW OF SYSTEMS: CONSTITUTIONAL : Denies fever, chills, or sweats. Denies recent illness. EENT: Right eye irritation. CARDIOVASCULAR: Denies chest pain. RESPIRATORY: Denies cough, cold, or chest congestion. Denies shortness of breath, difficulty breathing, or wheezing. GASTROINTESTINAL: Flank pain and suprapubic pain. Some nausea and vomiting GENITOURINARY: Dysuria urinary frequency. FEMALE GENITOURINARY: Denies vaginal bleeding, abnormal or irregular periods. MUSCULOSKELETAL: Denies neck or back pain or joint pain or swelling. SKIN: Denies rash or skin lesions. NEUROLOGICAL: Denies altered mental status or loss of consciousness. Denies headache. Denies weakness or paralysis or loss of use of either side. Denies problems with gait or speech. Denies sensory or motor loss. ALL OTHER SYSTEMS REVIEWED AND NEGATIVE. Physical Exam - Vital signs Vitals: Temp Pulse Resp BP Pulse Ox 98.6 F 92 17 136/94 H 97 03/22/18 20:58 03/22/18 20:58 03/22/18 20:58 03/22/18 20:58 03/22/18 20:58 - Notes Notes: General Appearance: Well nourished, alert, cooperative, no acute distress, moderate obvious discomfort. Vitals: reviewed, See vital signs table. Head: no swelling or tenderness to the head Eyes: Extraocular motion is intact. Pupils normal-appearing and not cloudy. Pupils are equal and reactive to light. Patient does have some conjunctival erythema to the right eye. Fluorescein staining does not show any evidence of uptake. No evidence of abrasion. Mouth: No decreasd moisture Neck: Supple, no neck tenderness, No thyromegaly Lungs: No wheezing, No rales, No rhonci, No accessory muscle use, good air exchange bilaterally. Heart: Normal rate, Regular rythm, No murmur, no rub Abdomen: Normal BS, soft, No rigidity, mild suprapubic abdominal tenderness to palpation. Some pain to palpation over right and left flank. Pain is worse in the right flank., No guarding, no rebound, no abdominal masses, no organomegaly Extremities: strength 5/5 in all extremities, good pulses in all extremities, no swelling or tenderness in the extremities, no edema. Skin: warm, dry, appropriate color, no rash Neuro: speech clear, oriented x 3, normal affect, responds appropriately to questions. Course - Re-evaluation Re-evalutation: 03/23/18 02:16 There is no hydronephrosis on the patient's ultrasound; however, they do not see a right ureteral jet. It is obvious that the patient probably does have obstruction but it is difficult to tell whether not she is actually passing a stone based on this exam. She does have some evidence of infection on her urinalysis and therefore I want to be sure she does or does not have a stone. Patient is agreeable to CT scan. 03/23/18 06:05 The scan was performed and did not show any evidence of intraureteral stone. She does have a complex cyst on the left kidney which is increased slightly in size. I did tell her about this and informed her that she is follow-up with her doctor and arrange for continued workup of this and probable repeat imaging. I informed her that some likely is cancer but anytime is complex cyst or still possibility that this could be cancerous mass and that is why it is very important she follows up. Patient agrees with this. I did write a prescription of antibiotics for urinary tract infection. Also gave her besifloxacin eyedrops to take home with her. I encouraged her return to ER if she has worsening redness or pain to her right eye, worsening flank pain, fevers , or she feels unwell. Patient agrees with plan will be discharged home. Dictation of this chart was performed using voice recognition software; therefore, there may be some unintended grammatical errors. - Vital Signs Vital signs: Temp Pulse Resp BP Pulse Ox 98.7 F 90 16 131/88 H 100 03/23/18 03:45 03/23/18 03:45 03/23/18 03:45 03/23/18 03:45 03/23/18 03:45 - Laboratory Result Diagrams: 03/22/18 23:18 03/22/18 23:18 Laboratory results interpreted by me: 03/22/18 03/22/18 03/22/18 23:18 23:18 23:18 WBC 16.4 H Absolute Neutrophils 11.5 H Chloride 108 H Urine Urobilinogen 2.0 H Ur Leukocyte Esterase SMALL H Discharge - Discharge Clinical Impression: Renal cyst UTI (urinary tract infection) Qualifiers: Urinary tract infection type: site unspecified Hematuria presence: without hematuria Qualified Code(s): N39.0 - Urinary tract infection, site not specified Conjunctivitis Qualifiers: Conjunctivitis type: unspecified Laterality: left Qualified Code(s): H10.9 - Unspecified conjunctivitis Condition: Good Disposition: HOME, SELF-CARE Instructions: Oral Narcotic Medication ([facility]) Additional Instructions: You have what appears to be a urinary tract infection. Please take the antibiotic as prescribed. You also have conjunctivitis which is an infection of the eye. Please take the eyedrops as one drop in the affected eye 3 times a day for 7 days. Please return to the ER if your eye becomes more inflamed or more red or you are developing fevers. Please return to ER immediately if you develop fevers or worsening pain in her side. Your CT scan did show a complex cyst on the left kidney that is slightly increased in size in comparison to your CT scan from June 2017. Please follow-up closely with your primary care doctor and tell him about the renal cyst that she may need eventual biopsy or repeat imaging. I tis important to have this done as sometimes his complexes could represent undiagnosed renal tumor. Although a cancer is less likely it is still possible and that is why we want you to follow-up closely with your primary care doctor. Prescriptions: Cephalexin Monohydrate [Keflex 500 mg Capsule] 500 mg PO BID 7 Days capsule Forms: Return to Work
--- NOTE | 2018-03-23 02:54 | RADIOLOGY REPORT (SQ) ---
EXAM DESCRIPTION: CT ABDOMEN WITHOUT IV CONTRAST CLINICAL HISTORY: 27 years Female, right sided pain Comparison: 9.14.17. 1.28.18. Technique: No contrast. Coronal and sagittal reformat. This exam was performed according to our departmental dose-optimization program, which includes automated exposure control, adjustment of the mA and/or kV according to patient size and/or use of iterative reconstruction technique.[facility]: Dose Right [facility]: CareDose [facility]: Dose Right [facility]: Teradose 4D [facility]: [employer] LIMITATIONS: None. Findings: Bilateral nephrolithiasis include stones measuring up to 1.6 cm on the right and renal/calyceal stones measuring up to 0.7 cm on the left, moderate macrolobulation of the left kidney appears mostly secondary to multiple cortical scars. Indeterminate 1.6 cm exophytic lesion of the inferior pole of the left kidney increased compared with 1.2 cm measurement on prior CT from June 2017. No free fluid. Normal appendix. Unenhanced lower thorax, abdominopelvic structures, and musculoskeleton appear otherwise grossly unremarkable. Impression: 1. Increased 1.6 cm indeterminate left renal lesion. Differential diagnosis includes complex cyst and neoplasm. Recommend multiphase contrast CT/MRI of the kidneys. 2. Bilateral nephrolithiasis.
[2018-03-23] MEDS ORDERED: HYDROCODONE/ACETAMINOPHEN 5-325 MG (6 TAB/ER DISP) PO PRN (03:08)
[2018-03-23] MEDS ORDERED: CEPHALEXIN 500 MG CAPSULE PO ONE (03:08)
[2018-03-23] MEDS ORDERED: HYDROCODONE/ACETAMINOPHEN 5-325 MG TABLET PO ONE (03:10)
[2018-03-23] MEDS ORDERED: ONDANSETRON 4 MG TAB.RAPDIS PO ONE (03:10)
[2018-03-23 03:46] VITALS: BP 131/88
== END 2018-03-23 03:46 | disposition home or self-care (01) ==
LOC: ER 20:54
DX: H10.9 Unspecified conjunctivitis (principal); N39.0 Urinary tract infection, site not specified; N28.1 Cyst of kidney, acquired; R11.2 Nausea with vomiting, unspecified; F17.200 Nicotine dependence, unspecified, uncomplicated; J44.9 Chronic obstructive pulmonary disease, unspecified; Z91.018 Allergy to other foods; Z88.5 Allergy status to narcotic agent
CPT/HCPCS: 99284; 96361; 96374; 96375; 36415; 85025; 80048; 81001; 76770; 76380; S0119; J3010; J1170; J2405; J7030

== ENCOUNTER 2018-04-18 17:01 | Emergency (ER) | payer SELFPAY ==
[2018-04-18 17:20] VITALS: BP 134/90
[2018-04-18] MEDS ORDERED: OXYCODONE-ACETAMINOPHEN 5-325 MG TABLET PO ONE (18:18)
[2018-04-18] MEDS ORDERED: METOCLOPRAMIDE HCL 10 MG TABLET PO ONE (18:19)
--- NOTE | 2018-04-18 18:21 | ER Document Report ---
ED Medical Screen (RME) - General Chief Complaint: Flank Pain Stated Complaint: RIGHT SIDE PAIN Time Seen by Provider: 04/18/18 18:13 Mode of Arrival: Wheelchair Information source: Patient, [facility] Records Notes: 27 yr old female hx of kidney stones resents with dysuria and right flank pain. t ntoes she passed 2 stones this week. denies any fevers or chills, admits to nausea and vomiting I have greeted and performed a rapid initial assessment of this patient. A comprehensive ED assessment and evaluation of the patient, analysis of test results and completion of the medical decision making process will be conducted by additional ED providers. PHYSICAL EXAMINATION: GENERAL: Well-appearing, well-nourished and in mild acute distress. HEAD: Atraumatic, normocephalic. EYES: Pupils equal round extraocular movements intact, conjunctiva are normal. ENT: Nares patent NECK: Normal range of motion LUNGS: No respiratory distress Musculoskeletal: Normal range of motion NEUROLOGICAL: Normal speech, normal gait. PSYCH: Normal mood, normal affect. SKIN: Warm, Dry, normal turgor, no rashes or lesions noted. TRAVEL OUTSIDE OF THE [place] IN LAST 30 DAYS: No - Related Data Allergies/Adverse Reactions: coconut Allergy (Verified 12/17/17 18:27) morphine Allergy (Verified 12/17/17 18:27) aspirin Adverse Reaction (Verified 12/17/17 18:27) Past Medical History - Social History Chew tobacco use (# tins/day): - 30 Frequency of alcohol use: Rare Family history: Reviewed & Not Pertinent Pulmonary Medical History: Reports: Hx Bronchitis, Hx COPD Renal/ Medical History: Reports: Hx Kidney Stones. Denies: Hx Peritoneal Dialysis Psychiatric Medical History: Reports: Hx Attention Deficit Hyperactivity Disorder, Hx Bipolar Disorder Past Surgical History: Reports: Hx Kidney (Renal Surgery), Hx Oral Surgery, Hx Urostomy - Immunizations Hx Diphtheria, Pertussis, Tetanus Vaccination: Yes History of Influenza Vaccine for 07/2017 - 12/2017 Season: Yes Physical Exam - Vital signs Vitals: Temp Pulse Resp BP Pulse Ox 98.1 F 103 H 16 134/90 H 96 04/18/18 17:18 04/18/18 17:18 04/18/18 17:18 04/18/18 17:18 04/18/18 17:18 Course - Vital Signs Vital signs: Temp Pulse Resp BP Pulse Ox 98.1 F 103 H 16 134/90 H 96 04/18/18 17:18 04/18/18 17:18 04/18/18 17:18 04/18/18 17:18 04/18/18 17:18
[2018-04-18 18:55] LABS: AMORPHOUS SEDIMENT,URINE TRACE /HPF; APPEARANCE,URINE CLOUDY; BILIRUBIN,URINE NEGATIVE (NEGATIVE); GLUCOSE, URINE NEGATIVE (NEGATIVE); KETONES,URINE NEGATIVE (NEGATIVE); LEUKOCYTE ESTERASE,URINE MODERATE (NEGATIVE); NITRITE,URINE NEGATIVE (NEGATIVE); PROTEIN,URINE 100 mg/dL (NEGATIVE); URINE SPECIFIC GRAVITY 1.019; UROBILINOGEN,URINE NEGATIVE mg/dL (<2.0)
[2018-04-18 18:57] LABS: COLOR,URINE PINK
[2018-04-18] MEDS ORDERED: CEPHALEXIN 500 MG CAPSULE PO ONE (19:16)
--- NOTE | 2018-04-18 20:11 | RADIOLOGY REPORT (SQ) ---
EXAM DESCRIPTION: CT LTD RENAL STONE PROTOCOL ON COMPLETED DATE/TIME: 04/18/2018 7:28 pm REASON FOR STUDY: flank pain , hx kidney stones, uti COMPARISON: 03/23/2018 TECHNIQUE: CT scan of the abdomen and pelvis performed without intravenous or oral contrast. Images reviewed with lung, soft tissue, and bone windows. Reconstructed coronal and sagittal MPR images revi ewed. All images stored on PACS. All CT scanners at this facility use dose modulation, iterative reconstruction, and/or weight based d osing when appropriate to reduce radiation dose to as low as reasonably achievable (ALARA). [facility]: Dose Right [facility]: CareDose [facility]: Dose Right [facility]: Teradose 4D [facility]: Smart Nor1 RADIATION DOSE: CT Rad equipment meets quality standard of care and radiation dose reduction techniq ues were employed. CTDIvol: 18.8 mGy. DLP: 1015 mGy-cm.mGy. LIMITATIONS: None. FINDINGS: LOWER CHEST: No significant findings. No nodules or infiltrates. NON-CONTRASTED LIVER, SPLEEN, ADRENALS: Evaluation limited by lack of IV contrast. No identified sign ificant masses. PANCREAS: No masses. No peripancreatic inflammatory changes. GALLBLADDER: No identified stones by CT criteria. No inflammatory changes to suggest cholecystitis. RIGHT KIDNEY AND URETER: No suspicious masses. Assessment limited by lack of IV contrast. Multiple intrarenal calculi including a 10 mm lower calyceal calculus. No hydronephrosis or hydroureter. LEFT KIDNEY AND URETER: Small exophytic mass arising from the lower pole posteriorly. No interval ch jennifer. Cyst versus neoplasm. Small nonobstructing intrarenal calculi. There is an 8 mm middle tory ceal calculus. There is a 6 mm stone in the proximal left ureter on image 50. No hydronephrosis or hydroureter. AORTA AND RETROPERITONEUM: No aneurysm. No retroperitoneal masses or adenopathy. BOWEL AND PERITONEAL CAVITY: Mild diverticulosis coli. Radiopaque foreign body is present in the dis tanya small bowel on image 54, possible ingested tablet. APPENDIX: Normal. PELVIS, BLADDER, AND ABDOMINAL WALL:No abnormal masses. No free fluid. Bladder normal. BONES: No significant findings. OTHER: No other significant finding. IMPRESSION: 1. Nonobstructing intrarenal calculi bilaterally. 6 mm stone in the proximal left uret er. 2. Small exophytic lesion arising from the lower pole the left kidney unchanged. Recommend MR or CT with contrast. Consider ultrasound. 3. Mild diverticulosis coli. COMMENT: Quality ID # [id number]: Final reports with documentation of one or more dose reduction techniques (e.g., Automated exposure control, adjustment of the mA and/or kV according to patient size, use of iterative reconstruction technique) TECHNICAL DOCUMENTATION: JOB ID: [id number] [employer]- All Rights Reserved Reading location - IP/workstation name: [email or web address]
[2018-04-18] MEDS ORDERED: NORMAL SALINE 1000 ML 1,000 ML IV PRN (20:12)
[2018-04-18] MEDS ORDERED: CIPROFLOXACIN 400 MG/D5W RTU 400 MG/200 ML RTUPB IV SCH (22:00)
--- NOTE | 2018-04-18 22:35 | ER Document Report ---
ED GI/ - General Mode of Arrival: Wheelchair TRAVEL OUTSIDE OF THE [place] IN LAST 30 DAYS: No <MARY ROE - Last Filed: 04/18/18 22:35> <SOTERO CERRATO - Last Filed: 04/18/18 23:20> - General Chief Complaint: Flank Pain Stated Complaint: RIGHT SIDE PAIN Time Seen by Provider: 04/18/18 18:13 - Related Data Allergies/Adverse Reactions: coconut Allergy (Verified 12/17/17 18:27) morphine Allergy (Verified 12/17/17 18:27) aspirin Adverse Reaction (Verified 12/17/17 18:27) Past Medical History - General Information source: Patient, ON LICENSE OF [facility] Records - Social History Smoking Status: Current Every Day Smoker Chew tobacco use (# tins/day): - 30 Frequency of alcohol use: Rare Family History: Reviewed & Not Pertinent Patient has suicidal ideation: No Patient has homicidal ideation: No Pulmonary Medical History: Reports: Hx Bronchitis, Hx COPD Renal/ Medical History: Reports: Hx Kidney Stones. Denies: Hx Peritoneal Dialysis Psychiatric Medical History: Reports: Hx Attention Deficit Hyperactivity Disorder, Hx Bipolar Disorder Past Surgical History: Reports: Hx Kidney (Renal Surgery), Hx Oral Surgery, Hx Urostomy - Immunizations Hx Diphtheria, Pertussis, Tetanus Vaccination: Yes <MARY ROE - Last Filed: 04/18/18 22:35> - Vital signs Vitals: Temp Pulse Resp BP Pulse Ox 98.1 F 103 H 16 134/90 H 96 04/18/18 17:18 04/18/18 17:18 04/18/18 17:18 04/18/18 17:18 04/18/18 17:18 Course <MARY ROE - Last Filed: 04/18/18 22:35> - Laboratory Result Diagrams: 04/18/18 22:10 04/18/18 22:10 <SOTERO CERRATO - Last Filed: 04/18/18 23:20> - Re-evaluation Re-evalutation: 04/18/18 23:[address] Frias. Initially was going to transfer patient due to concern of infected stone. However, upon review of CT patient has bilateral renal calculi but no evidence of hydronephrosis therefore no obstructing stone at this time. Patient has normal vitals is afebrile and CBC showed white cell count of 12.1. Discussed case with patient's urology group, Dr. Washburn reviewed case with me, and agreed patient did not need to be transferred at this time. She was provided IV antibiotics urine was cultured in the hospital. Discussed with patient option to be transferred versus going to urology office tomorrow [place] and she would rather go to urology office tomorrow. There was a question of gas money and I provided $10 and they stated that would help cover costs and they would be able to get to the office tomorrow. I felt this was appropriate as it will save the patient exorbitant amount of fees in ambulance ride and hospital stay. I did discuss strict return precautions with the patient who agrees if she develops any fevers or chills intractable nausea and pain to return immediately to the emergency department for reevaluation. If the symptoms do not occur she will follow-up with the urologist tomorrow in the office in [place]. Ciprofloxacin provided as outpatient antibiotics which was agreed upon with Dr. Washburn 04/18/18 23:20 1 500 mg tablet of Cipro was provided so patient could take in the a.m. (SOTERO CERRATO) - Vital Signs Vital signs: Temp Pulse Resp BP Pulse Ox 98.1 F 103 H 18 134/90 H 99 04/18/18 17:18 04/18/18 17:18 04/18/18 21:00 04/18/18 17:18 04/18/18 21:00 - Laboratory Laboratory results interpreted by me: 04/18/18 04/18/18 18:30 22:10 WBC 12.1 H Urine Protein 100 H Urine Blood LARGE H Ur Leukocyte Esterase MODERATE H Discharge <MARY ROE - Last Filed: 04/18/18 22:35> <SOTERO CERRATO - Last Filed: 04/18/18 23:20> - Discharge Clinical Impression: Kidney stone UTI (urinary tract infection) Qualifiers: Urinary tract infection type: site unspecified Hematuria presence: with hematuria Qualified Code(s): N39.0 - Urinary tract infection, site not specified Condition: Good Disposition: HOME, SELF-CARE Instructions: Kidney Stone ([facility]), Urinary Tract Infection ([facility]) Additional Instructions: Per discussion, take antibiotics as prescribed and please follow-up with [facility] tomorrow and [place] for discussion. Dr. Washburn is expecting a call and will see tomorrow in the office. Return precautions were provided please return the emergency department for any development of fevers chills nausea continued vomiting or any other concerns. Prescriptions: Ciprofloxacin HCl [Cipro 500 mg Tablet] 500 mg PO BID #20 tablet Ondansetron [Zofran Odt 4 mg Tablet] 1 tab PO Q4H PRN #15 tab.rapdis PRN Reason: For Nausea/Vomiting Oxycodone HCl/Acetaminophen [Percocet 5-325 mg Tablet] 1 tab PO ASDIR PRN #15 tablet PRN Reason:
[2018-04-18 22:45] LABS: ABSOLUTE BASOPHILS # (AUTO) 0.1 10^3/uL (0.0-0.2); ABSOLUTE EOSINOPHILS # (AUTO) 0.2 10^3/uL (0.0-0.6); ABSOLUTE MONOCYTES (AUTO) 0.9 10^3/uL (0.1-1.4); ABSOLUTE NEUT (AUTO) 6.9 10^3/uL (1.7-8.2); EOSINOPHILS % (AUTO) 1.4 % (0-6); HEMATOCRIT 40.2 % (36.0-47.0); HEMOGLOBIN 13.9 g/dL (12.0-15.5); LYMPHOCYTES % (AUTO) 33.2 % (13-45); MEAN CORPUSCULAR HEMOGLOBIN 31.5 pg (27.0-33.4); MEAN CORPUSCULAR HGB CONC 34.5 g/dL (32.0-36.0); MEAN CORPUSCULAR VOLUME 91 fl (80-97); MONOCYTES % (AUTO) 7.2 % (3-13); PLATELET COUNT 234 10^3/uL (150-450); RED BLOOD COUNT 4.41 10^6/uL (3.72-5.28); RED CELL DISTRIBUTION WIDTH 12.5 % (11.5-14.0); SEGMENTED NEUTROPHILS % (AUTO) 57.2 % (42-78); TOTAL CELLS COUNTED % (AUTO) 100 %; WHITE BLOOD COUNT 12.1 10^3/uL (4.0-10.5)
[2018-04-18] MEDS ORDERED: CIPROFLOXACIN HCL 500 MG TABLET PO ONE (23:19)
[2018-04-18] MEDS ORDERED: HYDROMORPHONE HCL INJ/PF 2 MG/ML AMPULE IV ONE (23:23)
[2018-04-18] MEDS ORDERED: HYDROCODONE/ACETAMINOPHEN 5-325 MG (6 TAB/ER DISP) PO PRN (23:23)
== END 2018-04-18 21:00 | disposition home or self-care (01) ==
LOC: ER 17:01
DX: N20.2 Calculus of kidney with calculus of ureter (principal); N39.0 Urinary tract infection, site not specified; F17.200 Nicotine dependence, unspecified, uncomplicated; J44.9 Chronic obstructive pulmonary disease, unspecified; Z91.018 Allergy to other foods; Z88.5 Allergy status to narcotic agent
CPT/HCPCS: 99284; 96375; 96365; 36415; 87040; 85025; 81001; 76380; J1170; J0744

== ENCOUNTER 2018-05-03 01:09 | Emergency (ER) | payer SELFPAY ==
[2018-05-03] MEDS ORDERED: OXYCODONE HCL IR 5 MG TABLET PO ONE (02:15)
[2018-05-03] MEDS ORDERED: IBUPROFEN 600 MG TABLET PO ONE (02:15)
[2018-05-03] MEDS ORDERED: ACETAMINOPHEN 325 MG TABLET PO ONE (02:15)
[2018-05-03 02:21] LABS: ABSOLUTE BASOPHILS # (AUTO) 0.1 10^3/uL (0.0-0.2); ABSOLUTE EOSINOPHILS # (AUTO) 0.1 10^3/uL (0.0-0.6); ABSOLUTE LYMPHOCYTES (AUTO) 4.5 10^3/uL (0.5-4.7); ABSOLUTE MONOCYTES (AUTO) 0.7 10^3/uL (0.1-1.4); ABSOLUTE NEUT (AUTO) 8.2 10^3/uL (1.7-8.2); BASOPHILS % (AUTO) 0.6 % (0-2); EOSINOPHILS % (AUTO) 0.9 % (0-6); HEMATOCRIT 42.7 % (36.0-47.0); HEMOGLOBIN 14.8 g/dL (12.0-15.5); LYMPHOCYTES % (AUTO) 32.7 % (13-45); MEAN CORPUSCULAR HGB CONC 34.7 g/dL (32.0-36.0); MEAN CORPUSCULAR VOLUME 92 fl (80-97); MONOCYTES % (AUTO) 5.3 % (3-13); PLATELET COUNT 239 10^3/uL (150-450); RED BLOOD COUNT 4.64 10^6/uL (3.72-5.28); RED CELL DISTRIBUTION WIDTH 12.8 % (11.5-14.0); SEGMENTED NEUTROPHILS % (AUTO) 60.5 % (42-78); TOTAL CELLS COUNTED % (AUTO) 100 %; WHITE BLOOD COUNT 13.6 10^3/uL (4.0-10.5)
[2018-05-03 02:23] LABS: ANION GAP 12 (5-19); BLOOD UREA NITROGEN 11 mg/dL (7-20); CALCIUM 9.5 mg/dL (8.4-10.2); CARBON DIOXIDE 28 mmol/L (22-30); CHLORIDE 106 mmol/L (98-107); GLUCOSE 81 mg/dL (75-110); POTASSIUM 4.2 mmol/L (3.6-5.0); SODIUM 146.3 mmol/L (137-145)
[2018-05-03 03:27] LABS: APPEARANCE,URINE SLIGHTLY-CLOUDY; BILIRUBIN,URINE NEGATIVE (NEGATIVE); CALCIUM OXALATE CRYSTALS,URINE MODERATE /HPF; COLOR,URINE YELLOW; GLUCOSE, URINE NEGATIVE (NEGATIVE); KETONES,URINE NEGATIVE (NEGATIVE); LEUKOCYTE ESTERASE,URINE SMALL (NEGATIVE); NITRITE,URINE NEGATIVE (NEGATIVE); PROTEIN,URINE NEGATIVE (NEGATIVE); URINE SPECIFIC GRAVITY 1.016; UROBILINOGEN,URINE NEGATIVE mg/dL (<2.0)
[2018-05-03] MEDS ORDERED: HYDROCODONE/ACETAMINOPHEN 5-325 MG (6 TAB/ER DISP) PO PRN (03:37)
[2018-05-03] MEDS ORDERED: CEPHALEXIN 500 MG CAPSULE PO ONE (03:37)
[2018-05-03] MEDS ORDERED: ONDANSETRON ODT 4 MG TAB (6 TAB/ER DISP) PO PRN (03:37)
--- NOTE | 2018-05-03 03:38 | ER Document Report ---
ED General - General Chief Complaint: Flank Pain Stated Complaint: FLANK PAIN Time Seen by Provider: 05/03/18 01:40 Notes: Patient is a 27 year old female who identifies as male, history of recurrent pyelonephritis and nephrolithiasis who presents with ongoing bilateral flank pain worse in the left versus the right. This has been going on for the past 10 -11 days. The patient states that he took all the antibiotics as prescribed on her recent visit to the emergency department on 04/18. However he notes that the pain does persist. Described as a stabbing, constant, aching pain to the bilateral flanks. Nothing improves or worsens his pain. The patient is following with urology at [facility] and is scheduled to follow-up this Wednesday. The patient did pass a stone while here in the emergency department. Patient does report that this feels similar to when he has had kidney stone pain in the past. No fever or constitutional symptoms at home. TRAVEL OUTSIDE OF THE [place] IN LAST 30 DAYS: No - Related Data Allergies/Adverse Reactions: coconut Allergy (Verified 12/17/17 18:27) morphine Allergy (Verified 12/17/17 18:27) aspirin Adverse Reaction (Verified 12/17/17 18:27) Past Medical History - General Information source: Patient - Social History Smoking Status: Never Smoker Chew tobacco use (# tins/day): No Frequency of alcohol use: None Drug Abuse: None Lives with: Spouse/Significant other Family History: Reviewed & Not Pertinent Patient has suicidal ideation: No Patient has homicidal ideation: No Pulmonary Medical History: Reports: Hx Bronchitis, Hx COPD Renal/ Medical History: Reports: Hx Kidney Stones. Denies: Hx Peritoneal Dialysis Psychiatric Medical History: Reports: Hx Attention Deficit Hyperactivity Disorder, Hx Bipolar Disorder Past Surgical History: Reports: Hx Kidney (Renal Surgery), Hx Oral Surgery, Hx Urostomy - Immunizations Hx Diphtheria, Pertussis, Tetanus Vaccination: Yes Review of Systems - Review of Systems Notes: Constitutional: Negative for fever. HENT: Negative for sore throat. Eyes: Negative for visual changes. Cardiovascular: Negative for chest pain. Respiratory: Negative for shortness of breath. Gastrointestinal: Positive for bilateral flank pain and nausea Genitourinary: Positive for dysuria. Musculoskeletal: Negative for back pain. Skin: Negative for rash. Neurological: Negative for headaches, weakness or numbness. 10 point ROS negative except as marked above and in HPI. Physical Exam - Vital signs Vitals: Temp Pulse Resp BP Pulse Ox 97.7 F 103 H 17 147/101 H 99 05/03/18 01:17 05/03/18 01:17 05/03/18 01:17 05/03/18 01:05/03/18 01:17 Interpretation: Tachycardic Notes: PHYSICAL EXAMINATION: GENERAL: Appears moderately uncomfortable but in no acute distress HEAD: Atraumatic, normocephalic. EYES: Pupils equal round and reactive to light, extraocular movements intact, sclera anicteric, conjunctiva are normal. ENT: nares patent, oropharynx clear without exudates. Moist mucous membranes. NECK: Normal range of motion, supple without lymphadenopathy LUNGS: Breath sounds clear to auscultation bilaterally and equal. No wheezes rales or rhonchi. HEART: Regular rate and rhythm without murmurs ABDOMEN: Soft, mild bilateral CVA tenderness but no otherwise localized abdominal tenderness, normoactive bowel sounds. No guarding, no rebound. No masses appreciated. EXTREMITIES: Normal range of motion, no pitting or edema. No cyanosis. NEUROLOGICAL: No focal neurological deficits. Moves all extremities spontaneously and on command. PSYCH: Normal mood, normal affect. SKIN: Warm, Dry, normal turgor, no rashes or lesions noted. Course - Re-evaluation Re-evalutation: 05/03/18 03:35 Patient presents with bilateral flank tenderness worse in the left versus the right. The patient did pass a stone that appears to be roughly consistent with the stone localized on CT imaging done on the second of this month. Patient did have some relief of his symptoms thereafter. Labs are otherwise unremarkable without evidence of kidney dysfunction, leukocytosis, and vitals are not consistent with sepsis. I had an extensive conversation with the patient regarding the frequency of radiographic imaging that has been obtained since May 2017 in this emergency department. The patient has had 5 CT scans of his abdomen and pelvis since May 2017 which is a very concerning frequency of CT imaging particular given that the patient discloses that he has had CT scans at others emergency departments as well. We have discussed that today given that the stone has passed here in the emergency department and that there are no fever or constitutional symptoms that the likelihood of a septic stone is low. We have also discussed the risks of ongoing frequent ionizing radiation. We have therefore elected not to proceed with CT imaging today. The patient will be restarted on cephalexin, nausea and pain control and is planning to follow-up with his urologist on Wednesday. At this time will discharge with return precautions and follow-up recommendations. Verbal discharge instructions given a the bedside and opportunity for questions given. Medication warnings reviewed. Patient is in agreement with this plan and has verbalized understanding of return precautions and the need for primary care follow-up in the next 24-72 hours. - Vital Signs Vital signs: Temp Pulse Resp BP Pulse Ox 97.7 F 103 H 17 147/101 H 99 05/03/18 01:17 05/03/18 01:17 05/03/18 01:17 05/03/18 01:17 05/03/18 01:17 - Laboratory Result Diagrams: 05/03/18 01:55 05/03/18 01:55 Laboratory results interpreted by me: 05/03/18 05/03/18 05/03/18 01:55 01:55 03:05 WBC 13.6 H Sodium 146.3 H Urine Blood LARGE H Ur Leukocyte Esterase SMALL H Discharge - Discharge Clinical Impression: Bilateral flank pain, Recurrent kidney stones Condition: Good Disposition: HOME, SELF-CARE Additional Instructions: Your urine today shows both blood and white blood cells but does not show bacteria. The remainder of your labs is normal. A urine culture has been sent. Your been started on antibiotics again today in case this is an associated infection. For your pain: Take ibuprofen 600 mg and acetaminophen 650 mg every 6 hours together as needed for pain. Using [place] with which she has been sent home for pain not controlled by the above regimen. Return if you develop a fever greater than 100.4F, have persistent vomiting, worsening of your pain, or any other symptoms that are worrisome to you. Please follow-up with urology as scheduled. Prescriptions: Cephalexin Monohydrate [Keflex 500 mg Capsule] 500 mg PO Q6H 5 Days capsule
[2018-05-03 04:31] VITALS: BP 135/89
== END 2018-05-03 04:32 | disposition home or self-care (01) ==
LOC: ER 01:09
DX: R10.9 Unspecified abdominal pain (principal); R11.0 Nausea; Z88.6 Allergy status to analgesic agent; Z87.442 Personal history of urinary calculi
CPT/HCPCS: 36415; 80048; 81001; 85025; 87086; 99284

== ENCOUNTER 2018-07-09 16:03 | Inpatient (IN) | payer SELFPAY ==
[2018-07-09] MEDS ORDERED: KETOROLAC TROMETHAMINE INJ/PF 30 MG/1 ML SDV IV ONE (17:26)
[2018-07-09] MEDS ORDERED: FENTANYL CITRATE INJ/PF 100 MCG/2 ML AMPUL IV ONE (17:26)
[2018-07-09] MEDS ORDERED: ONDANSETRON HCL INJ/PF 4 MG/2 ML SDV IV ONE (17:26)
--- NOTE | 2018-07-09 17:27 | ER Document Report ---
ED Medical Screen (RME) - General Chief Complaint: Flank Pain Stated Complaint: FLANK PAIN, NAUSEA Time Seen by Provider: 07/09/18 17:24 Notes: 27-year-old female history of kidney stones with urinary obstruction, nephrostomy tubes and multiple lithotripsies with right flank pain and right lower quadrant pain. Symptoms began today. Nausea and vomiting. Patient states that it, "feels like a obstruction". Is any fever, chills, sweats. I have greeted and performed a rapid initial assessment of this patient. A comprehensive ED assessment and evaluation of the patient, analysis of test results and completion of the medical decision making process will be conducted by additional ED providers. TRAVEL OUTSIDE OF THE [place] IN LAST 30 DAYS: No - Related Data Allergies/Adverse Reactions: coconut Allergy (Verified 07/09/18 16:05) morphine Allergy (Verified 07/09/18 16:05) aspirin Adverse Reaction (Verified 07/09/18 16:05) Past Medical History - Social History Chew tobacco use (# tins/day): No Drug Abuse: None Family history: Reviewed & Not Pertinent Pulmonary Medical History: Reports: Hx Bronchitis, Hx COPD Renal/ Medical History: Reports: Hx Kidney Stones. Denies: Hx Peritoneal Dialysis Psychiatric Medical History: Reports: Hx Attention Deficit Hyperactivity Disorder, Hx Bipolar Disorder Past Surgical History: Reports: Hx Kidney (Renal Surgery), Hx Oral Surgery, Hx Urostomy - Immunizations Hx Diphtheria, Pertussis, Tetanus Vaccination: Yes History of Influenza Vaccine for 07/2017 - 12/2017 Season: Yes Physical Exam - Vital signs Vitals: Temp Pulse Resp BP Pulse Ox 98.4 F 87 15 141/87 H 100 07/09/18 16:18 07/09/18 16:18 07/09/18 16:18 07/09/18 16:18 07/09/18 16:18 Course - Vital Signs Vital signs: Temp Pulse Resp BP Pulse Ox 98.4 F 87 15 141/87 H 100 07/09/18 16:18 07/09/18 16:18 07/09/18 16:18 07/09/18 16:18 07/09/18 16:18
[2018-07-09] MEDS ORDERED: ONDANSETRON 4 MG TAB.RAPDIS PO ONE (18:56)
[2018-07-09] MEDS ORDERED: ONDANSETRON 4 MG TAB.RAPDIS ONE (18:57)
--- NOTE | 2018-07-09 19:45 | RADIOLOGY REPORT (SQ) ---
EXAM DESCRIPTION: U/S RETROPERITON LTD COMPLETED DATE/TIME: 07/09/2018 7:30 pm REASON FOR STUDY: flank pian, hx obstruct stones COMPARISON: 03/23/2018. TECHNIQUE: Dynamic and static grayscale images acquired of the kidneys and bladder and recorded on P ACS. Additional selected color Doppler and spectral images recorded. LIMITATIONS: None. FINDINGS: RIGHT KIDNEY: Normal size. Normal echogenicity. No solid or suspicious masses. Mode rate hydronephrosis. No calcifications. LEFT KIDNEY: Normal size. Normal echogenicity. 2 cm cyst. No solid or suspicious masses. No h ydronephrosis. 1.5 cm calculus. BLADDER: No masses. OTHER FINDINGS: No other significant finding. IMPRESSION: HYDRONEPHROSIS OF THE RIGHT KIDNEY. NONOBSTRUCTING CALCULUS IN THE LEFT KIDNEY. TECHNICAL DOCUMENTATION: JOB ID: [id number] [employer]- All Rights Reserved Reading location - IP/workstation name: [email or web address]
[2018-07-09 19:53] LABS: APPEARANCE,URINE SLIGHTLY-CLOUDY; BILIRUBIN,URINE NEGATIVE (NEGATIVE); COLOR,URINE YELLOW; GLUCOSE, URINE NEGATIVE (NEGATIVE); KETONES,URINE TRACE mg/dL (NEGATIVE); LEUKOCYTE ESTERASE,URINE TRACE (NEGATIVE); NITRITE,URINE NEGATIVE (NEGATIVE); PROTEIN,URINE 30 mg/dL (NEGATIVE); URINE SPECIFIC GRAVITY 1.025; UROBILINOGEN,URINE NEGATIVE mg/dL (<2.0)
[2018-07-09 20:18] LABS: HEMATOCRIT 43.9 % (36.0-47.0); MEAN CORPUSCULAR HEMOGLOBIN 31.6 pg (27.0-33.4); MEAN CORPUSCULAR HGB CONC 34.2 g/dL (32.0-36.0); MEAN CORPUSCULAR VOLUME 92 fl (80-97); PLATELET COUNT 247 10^3/uL (150-450); RED BLOOD COUNT 4.76 10^6/uL (3.72-5.28); RED CELL DISTRIBUTION WIDTH 12.1 % (11.5-14.0); WHITE BLOOD COUNT 26.1 10^3/uL (4.0-10.5)
[2018-07-09 20:25] LABS: ALANINE AMINOTRANSFERASE 22 U/L (9-52); ALBUMIN 4.1 g/dL (3.5-5.0); ALKALINE PHOSPHATASE 66 U/L (38-126); ANION GAP 7 (5-19); ASPARTATE AMINO TRANSFERASE 17 U/L (14-36); BILIRUBIN,DIRECT 0.5 mg/dL (0.0-0.4); BILIRUBIN,TOTAL 1.1 mg/dL (0.2-1.3); BLOOD UREA NITROGEN 12 mg/dL (7-20); CALCIUM 9.4 mg/dL (8.4-10.2); CARBON DIOXIDE 26 mmol/L (22-30); CHLORIDE 105 mmol/L (98-107); GLUCOSE 100 mg/dL (75-110); POTASSIUM 4.3 mmol/L (3.6-5.0); SODIUM 137.9 mmol/L (137-145); TOTAL PROTEIN 7.2 g/dL (6.3-8.2)
--- NOTE | 2018-07-09 20:27 | RADIOLOGY REPORT (SQ) ---
EXAM DESCRIPTION: KUB/ABDOMEN (SINGLE VIEW) COMPLETED DATE/TIME: 07/09/2018 8:04 pm REASON FOR STUDY: right flank pain COMPARISON: Ultrasound renal dated 07/09/2018. CT dated 04/18/2018. NUMBER OF VIEWS: One view. TECHNIQUE: AP supine digital radiograph of the abdomen. LIMITATIONS: None. FINDINGS: CALCIFICATIONS: RIGHT KIDNEY: Multiple calculi. RIGHT URETER: 11 mm calcification on the right side of the L4-L5 disc level. LEFT KIDNEY: Multiple calculi. LEFT URETER: No calcifications in the expected location of the ureter. BLADDER: No suspicious calcifications in the pelvis. BOWEL GAS PATTERN AND SOFT TISSUES: Normal bowel gas pattern. No masses or organomegaly. BONES: No acute fracture. No worrisome bone lesions. OTHER: None. IMPRESSION: MULTIPLE BILATERAL RENAL CALCULI. 11 MM CALCIFICATION ON THE RIGHT SIDE OF THE LOWER VAL MBAR SPINE SUSPICIOUS FOR A URETERAL CALCULUS. TECHNICAL DOCUMENTATION: JOB ID: [id number] [employer]- All Rights Reserved Reading location - IP/workstation name: [email or web address]
[2018-07-09] MEDS ORDERED: CEFTRIAXONE INJ 1000 MG VIAL IV ONE (20:38)
[2018-07-09 20:43] LABS: ABSOLUTE LYMPHOCYTES# (MANUAL) 2.3 10^3/uL (0.5-4.7); ABSOLUTE MONOCYTES # (MANUAL) 0.8 10^3/uL (0.1-1.4); BASOPHILS % (MANUAL) 0 % (0-2); EOSINOPHILS % (MANUAL) 0 % (0-6); LYMPHOCYTES % (MANUAL) 9 % (13-45); MONOCYTES % (MANUAL) 3 % (3-13); SEGMENTED NEUTROPHILS % (MAN) 88 % (42-78); TOTAL CELLS COUNTED 100
[2018-07-09 20:44] LABS: PLATELET COMMENT ADEQUATE; PLATELET LARGE PRESENT
[2018-07-09 20:55] LABS: HYPOCHROMASIA SLIGHT
--- NOTE | 2018-07-09 21:11 | ER Document Report ---
ED General - General Chief Complaint: Flank Pain Stated Complaint: FLANK PAIN, NAUSEA Time Seen by Provider: 07/09/18 17:24 Notes: Patient is a 27-year-old female who identifies as male who presents with 24 hours of right flank pain, nausea and vomiting. The patient states this feels exactly the same as when he has had kidney stones in the past. Describes it as a severe, stabbing, constant pain to the right flank radiating to the right groin. Nothing improves or worsens his pain. No fever or constitutional symptoms. He has not seen his general doctor or urologist regarding today's concerns. TRAVEL OUTSIDE OF THE [place] IN LAST 30 DAYS: No - Related Data Allergies/Adverse Reactions: coconut Allergy (Verified 07/09/18 16:05) morphine Allergy (Verified 07/09/18 16:05) aspirin Adverse Reaction (Verified 07/09/18 16:05) Past Medical History - General Information source: Patient - Social History Smoking Status: Current Every Day Smoker Chew tobacco use (# tins/day): No Frequency of alcohol use: None Drug Abuse: None Lives with: Spouse/Significant other Family History: Reviewed & Not Pertinent Patient has suicidal ideation: No Patient has homicidal ideation: No Pulmonary Medical History: Reports: Hx Bronchitis, Hx COPD Renal/ Medical History: Reports: Hx Kidney Stones. Denies: Hx Peritoneal Dialysis Psychiatric Medical History: Reports: Hx Attention Deficit Hyperactivity Disorder, Hx Bipolar Disorder Past Surgical History: Reports: Hx Kidney (Renal Surgery), Hx Oral Surgery, Hx Urostomy - Immunizations Hx Diphtheria, Pertussis, Tetanus Vaccination: Yes Review of Systems - Review of Systems Notes: Constitutional: Negative for fever. HENT: Negative for sore throat. Eyes: Negative for visual changes. Cardiovascular: Negative for chest pain. Respiratory: Negative for shortness of breath. Gastrointestinal: Positive for right flank pain and vomiting Genitourinary: Positive for hematuria Musculoskeletal: Negative for back pain. Skin: Negative for rash. Neurological: Negative for headaches, weakness or numbness. 10 point ROS negative except as marked above and in HPI. Physical Exam - Vital signs Vitals: Temp Pulse Resp BP Pulse Ox 98.4 F 87 15 141/87 H 100 07/09/18 16:18 07/09/18 16:18 07/09/18 16:18 07/09/18 16:18 07/09/18 16:18 Interpretation: Normal Notes: PHYSICAL EXAMINATION: GENERAL: Appears uncomfortable but in no acute distress HEAD: Atraumatic, normocephalic. EYES: Pupils equal round and reactive to light, extraocular movements intact, sclera anicteric, conjunctiva are normal. ENT: nares patent, oropharynx clear without exudates. Moderately dry mucous membranes. NECK: Normal range of motion, supple without lymphadenopathy LUNGS: Breath sounds clear to auscultation bilaterally and equal. No wheezes rales or rhonchi. HEART: Regular rate and rhythm without murmurs ABDOMEN: Soft, nontender, normoactive bowel sounds. No guarding, no rebound. No masses appreciated. Right CVA tenderness to palpation EXTREMITIES: Normal range of motion, no pitting or edema. No cyanosis. NEUROLOGICAL: No focal neurological deficits. Moves all extremities spontaneously and on command. PSYCH: Normal mood, normal affect. SKIN: Warm, Dry, normal turgor, no rashes or lesions noted. Course - Re-evaluation Re-evalutation: 07/09/18 21:23 Patient presents with right-sided flank pain with associated hydronephrosis and an 11 mm stone seen on KUB. The patient has findings worrisome for possible sepsis as the white count is 26.1 and also has new onset renal dysfunction with a creatinine of 1.58, GFR 39 which is not normal for this patient. Urinalysis does show 25 white blood cells as well as positive leukoesterase. I discussed this case with the urologist on-call who will take the patient to the OR. I have discussed with the hospitalist Dr. Franklin who has accepted the patient for admission. The patient has received 1 g of ceftriaxone. Will receive IV fluids. Has been n.p.o. since last evening. - Vital Signs Vital signs: Temp Pulse Resp BP Pulse Ox 98.3 F 75 14 132/72 H 99 07/10/18 00:36 07/10/18 00:36 07/10/18 00:36 07/10/18 00:36 07/10/18 00:36 - Laboratory Result Diagrams: 07/09/18 19:55 07/09/18 19:55 Laboratory results interpreted by me: 07/09/18 07/09/18 07/09/18 17:55 19:55 19:55 WBC 26.1 H Seg Neuts % (Manual) 88 H Lymphocytes % (Manual) 9 L Abs Neuts (Manual) 23.0 H Creatinine 1.58 H Est GFR ( Amer) 47 L Est GFR (Non-Af Amer) 39 L Direct Bilirubin 0.5 H Urine Protein 30 H Urine Ketones TRACE H Urine Blood LARGE H Ur Leukocyte Esterase TRACE H - Diagnostic Test Radiology reviewed: Reports reviewed Discharge - Discharge Clinical Impression: Hydronephrosis, right Nausea and vomiting Qualifiers: Vomiting type: unspecified Vomiting Intractability: non-intractable Qualified Code(s): R11.2 - Nausea with vomiting, unspecified Sepsis Qualifiers: Sepsis type: sepsis due to unspecified organism Qualified Code(s): A41.9 - Sepsis, unspecified organism Condition: Fair Disposition: ADMITTED INPATIENT Admitting Provider: Hospitalist Unit Admitted: Telemetry
[2018-07-09] MEDS ORDERED: NORMAL SALINE 1000 ML 1,000 ML IV ONE (21:23)
[2018-07-09] MEDS ORDERED: ACETAMINOPHEN 325 MG TABLET PO PRN (21:36)
[2018-07-09] MEDS ORDERED: MAG HYDROX/AL HYDROX/SIMETH SUSP 30 ML UDCUP PO PRN (21:36)
[2018-07-09] MEDS ORDERED: IPRATROPIUM/ALBUTEROL 0.5-2.5 MG/3 ML AMPUL NEB PRN (21:36)
[2018-07-09] MEDS ORDERED: PROMETHAZINE HCL 25 MG TABLET PO PRN (21:36)
[2018-07-09] MEDS ORDERED: DEXTROSE 40% GEL 15 GM TUBE PO PRN ×2 (21:36)
[2018-07-09] MEDS ORDERED: DEXTROSE 50%-WATER 25 GM/50 ML DISP.SYRIN IV PRN ×2 (21:36)
[2018-07-09] MEDS ORDERED: GLUCAGON,HUMAN RECOMB 1 MG INJ SUBCUT PRN (21:36)
[2018-07-09] MEDS ORDERED: PROMETHAZINE HCL INJ 25 MG/1 ML VIAL IV PRN (21:36)
[2018-07-09] MEDS ORDERED: PANTOPRAZOLE SODIUM 40 MG VIAL IV ONE (22:00)
[2018-07-09 22:02] LABS: INTERNATIONAL RATION (INR) 0.98; PROTHROMBIN TIME 13.5 SEC (11.4-15.4)
[2018-07-09] MEDS ORDERED: PROPOFOL INJ 200 MG/20 ML VIAL IV ONE (23:36)
[2018-07-09] MEDS ORDERED: ONDANSETRON HCL INJ/PF 4 MG/2 ML SDV ONE (23:36)
[2018-07-09] MEDS ORDERED: MIDAZOLAM 2 MG/2 ML INJ ONE (23:36)
[2018-07-09] MEDS ORDERED: FENTANYL CITRATE INJ/PF 100 MCG/2 ML AMPUL ONE (23:36)
--- NOTE | 2018-07-10 00:23 | PDOC CONSULTATION ---
Consultation Consult Date: 07/09/80 Attending physician:: LYDIA KING History of Present Illness Admission Date/PCP: 07/09/18 21:30 History of Present Illness: SHADI SAMSON is a 27 year old female Past Medical History Pulmonary Medical History: Reports: Bronchitis, Chronic Obstructive Pulmonary Disease (COPD) Psychiatric Medical History: Reports: Attention Deficit Hyperactivity Disorder, Bipolar Disorder Social History Smoking Status: Current Every Day Smoker Family History Family History: Reviewed & Not Pertinent Parental Family History Reviewed: No Children Family History Reviewed: No Sibling(s) Family History Reviewed.: No Medication/Allergy Home Medications: Ciprofloxacin HCl [Cipro 500 mg Tablet] 500 mg PO BID #20 tablet 04/18/18 Ondansetron [Zofran Odt 4 mg Tablet] 1 tab PO Q4H PRN #15 tab.rapdis 04/18/18 Oxycodone HCl/Acetaminophen [Percocet 5-325 mg Tablet] 1 tab PO ASDIR PRN #15 tablet 04/18/18 Tamsulosin HCl [Flomax 0.4 mg Cap.sr] 1 cap PO DAILY 04/18/18 Cephalexin Monohydrate [Keflex 500 mg Capsule] 500 mg PO Q6H 5 Days capsule Allergies/Adverse Reactions: coconut Allergy (Verified 07/09/18 16:05) morphine Allergy (Verified 07/09/18 16:05) aspirin Adverse Reaction (Verified 07/09/18 16:05) Physical Exam Vital Signs: Temp Pulse Resp BP Pulse Ox 98.8 F 91 18 138/76 H 98 07/09/18 23:07 07/09/18 23:07 07/09/18 23:07 07/09/18 23:07 07/09/18 23:07 Intake & Output 07/08/18 07/09/18 07/10/18 06:59 06:59 06:59 Intake Total 899 Balance 899 Results Impressions: KUB X-Ray 07/09/18 17:25 IMPRESSION: MULTIPLE BILATERAL RENAL CALCULI. 11 MM CALCIFICATION ON THE RIGHT SIDE OF THE LOWER LUMBAR SPINE SUSPICIOUS FOR A URETERAL CALCULUS. Renal Ultrasound 07/09/18 17:25 IMPRESSION: HYDRONEPHROSIS OF THE RIGHT KIDNEY. NONOBSTRUCTING CALCULUS IN THE LEFT KIDNEY. Assessment & Plan - Diagnosis (1) Hydronephrosis, right Is this a current diagnosis for this admission?: Yes - Plan Summary Plan Summary: Agent will be taken to surgery to insert double-J catheter spoke to her please see the consult consult that was written and operative note
--- NOTE | 2018-07-10 00:27 | Operative Report ---
Operative Report DATE OF SURGERY: 07/09/80 Operative Report: With the patient in the supine position after the induction of anesthesia and proper draping and prepping #21 cystoscope sheath inserted bladder inspected normal right orifice identified guidewire was inserted over #5 ureteral catheter retrograde was done then and insertion of 6 double-J catheter was tried to could not go and because of the size of the stone then we changed it to 24 four-point 0.8 it went easily. A gush of hydronephrotic drip was seen coming. All this was done under fluoroscopy guidance. Patient tolerated procedure well. PREOPERATIVE DIAGNOSIS: Right ureteral stone obstructing with fever and high count and elevated white creatinine POSTOPERATIVE DIAGNOSIS: Same OPERATION: Cystoscopy right retrograde and insertion of double-J catheter on the right side SURGEON: LYDIA KING ANESTHESIA: GA TISSUE REMOVED OR ALTERED: None COMPLICATIONS: None ESTIMATED BLOOD LOSS: 0 INTRAOPERATIVE FINDINGS: During photic drip was coming from the right side of the insertion of double-J catheter. PROCEDURE: With the patient in supine position #21 cystoscope sheath was inserted after draping and prepping the right orifice identified guidewire was inserted after inserting a 21 cystoscope sheath over a #5 ureteral catheter retrograde was done at 244.8 double-J catheter was inserted into the collecting system under fluoroscopic guidance. Hydronephrotic drop drip was seen.
[2018-07-10] MEDS: NORMAL SALINE 1000 ML 1,000 ML IV PRN ×3 (01:15→18:44)
--- NOTE | 2018-07-10 01:54 | PDOC H&P ---
History of Present Illness Admission Date/PCP: 07/09/18 21:30 Patient complains of: Right flank pain History of Present Illness: SHADI SAMSON is a 27 year old female who comes to the emergency department with symptoms since last Wednesday midnight, complains of right back pain radiated to the right groin going up to 10/10 intensity, sharp like, not associated with fever, chills but she is having persistent nausea and vomiting with yellowish secretion and frequent gagging. Patient has not been drinking a lot of fluids as per her symptoms. Denies chest pain, shortness of breath, dizziness or lightheadedness, dysuria, hematuria frequency, diarrhea. Patient has history of kidney stones and she had 6 procedures done last year, 5 on the right side and one on the left side. Urology DR Beckham has been consulted as KUB and kidney ultrasound done, shows bilateral calculi with 11 mm ureteral stone in the right side with right hydronephrosis. White blood cells count 26 with left shift with acute renal failure. Urinalysis positive for infection. Past Medical History Pulmonary Medical History: Reports: Bronchitis Renal/ Medical History: Reports: Other - Kidney stones Psychiatric Medical History: Reports: Attention Deficit Hyperactivity Disorder, Bipolar Disorder Past Surgical History Past Surgical History: Reports: Other - Multiple urology intervention secondary to recurrent kidney stones Social History Smoking Status: Current Every Day Smoker Cigars Per Day: 5 Number of Years Smokin Last Time Smoked: 07/09/2018 Frequency of Alcohol Use: None Hx Recreational Drug Use: No Hx Prescription Drug Abuse: No - Advance Directive Resuscitation Status: Full Code Family History Family History: Reviewed & Not Pertinent Family History: Father alive with no medical conditions, mother 71 years old no medical conditions. Grandmother with history of CVA. Parental Family History Reviewed: Yes - As above Children Family History Reviewed: NA Sibling(s) Family History Reviewed.: NA Medication/Allergy Home Medications: Ciprofloxacin HCl [Cipro 500 mg Tablet] 500 mg PO BID #20 tablet 04/18/18 Ondansetron [Zofran Odt 4 mg Tablet] 1 tab PO Q4H PRN #15 tab.rapdis 04/18/18 Oxycodone HCl/Acetaminophen [Percocet 5-325 mg Tablet] 1 tab PO ASDIR PRN #15 tablet 04/18/18 Tamsulosin HCl [Flomax 0.4 mg Cap.sr] 1 cap PO DAILY 04/18/18 Cephalexin Monohydrate [Keflex 500 mg Capsule] 500 mg PO Q6H 5 Days capsule Allergies/Adverse Reactions: coconut Allergy (Verified 07/09/18 16:05) morphine Allergy (Verified 07/09/18 16:05) aspirin Adverse Reaction (Verified 07/09/18 16:05) Review of Systems Review of Systems: As outlined in the HPI, others negative Physical Exam Vital Signs: Temp Pulse Resp BP Pulse Ox 98.3 F 75 14 132/72 H 99 07/10/18 00:36 07/10/18 00:36 07/10/18 00:36 07/10/18 00:36 07/10/18 00:36 Intake & Output 07/08/18 07/09/18 07/10/18 06:59 06:59 06:59 Intake Total 2399 Balance 2399 Additional comments: General appearance: Well-developed, well-nourished, alert and cooperative, and appears to be in no acute distress Head: Normocephalic Eyes: PEERL, EOMI, vision is grossly intact. Ears: External auditory canal and tympanic membranes clear, hearing grossly intact. Nose: No nasal discharge. Throat: Oral cavity and pharynx normal. No inflammation, swelling, exudate or lesions. Neck: Neck supple, nontender without lymphadenopathy, masses or thyromegaly. Cardiac: Normal S1 and S2. No S3, S4 or murmurs. Rhythm is regular. There is no peripheral edema, cyanosis or pallor. Extremities are warm and well perfused. Capillary refill is less than 2 seconds. No carotid bruits. Lungs: Clear to auscultation and percussion without rales, rhonchi, wheezing or diminished breath sounds. Not using accessory muscles. Negative bilateral CVA at my examination Abdomen: Positive bowel sounds. Soft. Nondistended, nontender. No guarding or rebound. No masses. No hepatosplenomegaly Extremities: No significant deformity or joint abnormality. No edema. Peripheral pulses intact. No varicosities. Neurological: Cranial nerves II through XII grossly intact. Strength and sensation symmetric and intact throughout. Reflexes 2+ throughout. Skin: Skin normal color, texture and turgor with no lesions or eruptions, warm and dry. Psychiatric: The mental examination revealed the patient was oriented to person , place, and time. The patient was able to demonstrate good judgment on recent , without hallucinations, abnormal affect or abnormal behaviors. Results Laboratory Results: 07/09/18 07/09/18 07/09/18 17:55 19:55 19:55 WBC 26.1 H RBC 4.76 Hgb 15.0 Hct 43.9 MCV 92 MCH 31.6 MCHC 34.2 RDW 12.1 Plt Count 247 Total Counted 100 Seg Neuts % (Manual) 88 H Lymphocytes % (Manual) 9 L Monocytes % (Manual) 3 Abs Neuts (Manual) 23.0 H Abs Lymphs (Manual) 2.3 Large Platelets PRESENT Platelet Comment ADEQUATE Hypochromasia SLIGHT PT INR Sodium 137.9 Potassium 4.3 Chloride 105 Carbon Dioxide 26 Anion Gap 7 BUN 12 Creatinine 1.58 H Est GFR ( Amer) 47 L Est GFR (Non-Af Amer) 39 L Glucose 100 Calcium 9.4 Total Bilirubin 1.1 Direct Bilirubin 0.5 H AST 17 ALT 22 Alkaline Phosphatase 66 Total Protein 7.2 Albumin 4.1 Urine Color YELLOW Urine Appearance SLIGHTLY-CLOUDY Urine pH 6.0 Ur Specific Malone 1.025 Urine Protein 30 H Urine Glucose (UA) NEGATIVE Urine Ketones TRACE H Urine Blood LARGE H Urine Nitrite NEGATIVE Urine Bilirubin NEGATIVE Urine Urobilinogen NEGATIVE Ur Leukocyte Esterase TRACE H Urine WBC (Auto) 25 Urine RBC (Auto) >182 Squamous Epi Cells Auto 2 Urine Mucus (Auto) RARE Urine Ascorbic Acid NEGATIVE Urine HCG, Qual NEGATIVE 07/09/18 19:55 WBC RBC Hgb Hct MCV MCH MCHC RDW Plt Count Total Counted Seg Neuts % (Manual) Lymphocytes % (Manual) Monocytes % (Manual) Abs Neuts (Manual) Abs Lymphs (Manual) Large Platelets Platelet Comment Hypochromasia PT 13.5 INR 0.98 Sodium Potassium Chloride Carbon Dioxide Anion Gap BUN Creatinine Est GFR ( Amer) Est GFR (Non-Af Amer) Glucose Calcium Total Bilirubin Direct Bilirubin AST ALT Alkaline Phosphatase Total Protein Albumin Urine Color Urine Appearance Urine pH Ur Specific Malone Urine Protein Urine Glucose (UA) Urine Ketones Urine Blood Urine Nitrite Urine Bilirubin Urine Urobilinogen Ur Leukocyte Esterase Urine WBC (Auto) Urine RBC (Auto) Squamous Epi Cells Auto Urine Mucus (Auto) Urine Ascorbic Acid Urine HCG, Qual Impressions: KUB X-Ray 07/09/18 17:25 IMPRESSION: MULTIPLE BILATERAL RENAL CALCULI. 11 MM CALCIFICATION ON THE RIGHT SIDE OF THE LOWER LUMBAR SPINE SUSPICIOUS FOR A URETERAL CALCULUS. Renal Ultrasound 07/09/18 17:25 IMPRESSION: HYDRONEPHROSIS OF THE RIGHT KIDNEY. NONOBSTRUCTING CALCULUS IN THE LEFT KIDNEY. Assessment & Plan - Diagnosis (1) Right ureteral stone Is this a current diagnosis for this admission?: Yes Plan: Patient with history of frequent kidney stones, no comes with a right 11 mm right ureteral calculus with hydronephrosis, associated with leukocytosis white blood cells of 20 6K with left shift. Urology Dr. Main was consulted and will take the patient to the OR for a stent placement. In the meantime I will place the patient on IV Rocephin for possible UTI. IV fluids. IV antiemetics and pain medication. PT and PTT. Please follow blood cultures. (2) Acute renal failure Qualifiers: Acute renal failure type: unspecified Qualified Code(s): N17.9 - Acute kidney failure, unspecified Is this a current diagnosis for this admission?: Yes Plan: BUN 12 and creatinine 1.58 in the setting of normal renal function. Likely secondary to kidney stones and dehydration secondary to persistent nausea and vomiting. Patient is on IV fluids and I anticipate this to be prerenal. Will recheck renal panel in the morning. - Time Time Spent: 30 to 50 Minutes - Inpatient Certification Based on my medical assessment, after consideration of the patient's comorbidities, presenting symptoms, or acuity I expect that the services needed warrant INPATIENT care.: Yes I certify that my determination is in accordance with my understanding of Medicare's requirements for reasonable and necessary INPATIENT services [42 CFR 412.3e].: Yes Medical Necessity: Risk of Complication if Not Cared For in Hospital
[2018-07-10] MEDS: HYDROMORPHONE HCL INJ/PF 2 MG/ML AMPULE IV PRN ×5 (06:02→21:49)
[2018-07-10 06:13] LABS: ABSOLUTE BASOPHILS # (AUTO) 0.1 10^3/uL (0.0-0.2); ABSOLUTE LYMPHOCYTES (AUTO) 2.4 10^3/uL (0.5-4.7); ABSOLUTE MONOCYTES (AUTO) 1.1 10^3/uL (0.1-1.4); ABSOLUTE NEUT (AUTO) 11.5 10^3/uL (1.7-8.2); BASOPHILS % (AUTO) 0.7 % (0-2); EOSINOPHILS % (AUTO) 0.1 % (0-6); HEMATOCRIT 39.4 % (36.0-47.0); HEMOGLOBIN 13.6 g/dL (12.0-15.5); LYMPHOCYTES % (AUTO) 15.7 % (13-45); MEAN CORPUSCULAR HEMOGLOBIN 31.9 pg (27.0-33.4); MEAN CORPUSCULAR HGB CONC 34.6 g/dL (32.0-36.0); MEAN CORPUSCULAR VOLUME 92 fl (80-97); MONOCYTES % (AUTO) 7.1 % (3-13); PLATELET COUNT 168 10^3/uL (150-450); RED BLOOD COUNT 4.27 10^6/uL (3.72-5.28); RED CELL DISTRIBUTION WIDTH 12.6 % (11.5-14.0); SEGMENTED NEUTROPHILS % (AUTO) 76.4 % (42-78); TOTAL CELLS COUNTED % (AUTO) 100 %
[2018-07-10 06:36] LABS: ANION GAP 6 (5-19); BLOOD UREA NITROGEN 12 mg/dL (7-20); CALCIUM 8.4 mg/dL (8.4-10.2); CARBON DIOXIDE 25 mmol/L (22-30); CHLORIDE 108 mmol/L (98-107); POTASSIUM 3.8 mmol/L (3.6-5.0); SODIUM 138.9 mmol/L (137-145)
[2018-07-10 07:53] LABS: GLUCOSE 90 mg/dL (75-110)
--- NOTE | 2018-07-10 08:11 | RADIOLOGY REPORT (SQ) ---
EXAM DESCRIPTION: PYELOGRAM RETROGRADE COMPLETED DATE/TIME: 07/10/2018 12:28 am REASON FOR STUDY: RETROGRADE PYELOGRAM RT SIDE IN CYSTO COMPARISON: None. FLUOROSCOPY TIME: 36 seconds. 4 images saved to PACS. TECHNIQUE: Intra-operative images acquired during surgical procedure to evaluate progress. NUMBER OF IMAGES: 4 images. LIMITATIONS: None. FINDINGS: Contrast filling of the collecting system on the right side and placement of a right urete ral stent. IMPRESSION: IMAGE(S) OBTAINED DURING PROCEDURE. COMMENT: Quality ID [id number]: Final reports for procedures using fluoroscopy that document radiation exp osure indices, or exposure time and number of fluorographic images (if radiation exposure indices are not available) Please consult full operative report of the attending physician for description of the procedure. TECHNICAL DOCUMENTATION: JOB ID: [id number] [employer]- All Rights Reserved Reading location - IP/workstation name: [email or web address]
[2018-07-10] MEDS: ENOXAPARIN SODIUM INJ 40 MG/0.4 ML DISP.SYRIN SUBCUT SCH (10:02)
[2018-07-10] MEDS: OXYCODONE HCL IR 5 MG TABLET PO PRN ×3 (12:50→23:07)
--- NOTE | 2018-07-10 17:05 | PDOC PROGRESS REPORT ---
Subjective Progress Note for:: 07/10/18 Subjective:: Patient is still having urinary frequency and some urgency. No hematuria. Symptoms are not well controlled. Pain or difficulty breathing. No problems eating or drinking. Fever or chills. No nausea or vomiting. Reason For Visit: RIGHT KIDNEY STONE Physical Exam Vital Signs: Temp Pulse Resp BP Pulse Ox 97.8 F 86 16 118/80 98 07/10/18 11:53 07/10/18 14:16 07/10/18 14:16 07/10/18 11:53 07/10/18 14:16 Intake & Output 07/09/18 07/10/18 07/11/18 06:59 06:59 06:59 Intake Total 2399 1505 Output Total 300 Balance 2099 1505 Weight 110.2 kg General appearance: PRESENT: no acute distress, disheveled, obese Eye exam: PRESENT: EOMI. ABSENT: conjunctival injection, scleral icterus Mouth exam: PRESENT: moist, tongue midline Respiratory exam: PRESENT: clear to auscultation aggie, unlabored. ABSENT: rales , rhonchi, wheezes Cardiovascular exam: PRESENT: RRR. ABSENT: systolic murmur Pulses: PRESENT: normal radial pulses GI/Abdominal exam: PRESENT: normal bowel sounds, soft. ABSENT: distended, guarding, tenderness Rectal exam: PRESENT: deferred Extremities exam: ABSENT: pedal edema Neurological exam: PRESENT: alert, awake, oriented to person, oriented to place , oriented to situation, CN II-XII grossly intact Psychiatric exam: PRESENT: appropriate affect. ABSENT: anxious Skin exam: PRESENT: dry, intact, warm Results Laboratory Results: 07/10/18 05:46 07/10/18 05:46 07/10/18 07/10/18 05:46 05:46 WBC 15.0 H RBC 4.27 Hgb 13.6 Hct 39.4 MCV 92 MCH 31.9 MCHC 34.6 RDW 12.6 Plt Count 168 Seg Neutrophils % 76.4 Lymphocytes % 15.7 Monocytes % 7.1 Eosinophils % 0.1 Basophils % 0.7 Absolute Neutrophils 11.5 H Absolute Lymphocytes 2.4 Absolute Monocytes 1.1 Absolute Eosinophils 0.0 Absolute Basophils 0.1 Sodium 138.9 Potassium 3.8 Chloride 108 H Carbon Dioxide 25 Anion Gap 6 BUN 12 Creatinine 1.26 H Est GFR ( Amer) > 60 Est GFR (Non-Af Amer) 50 L Glucose 90 Calcium 8.4 Impressions: Retrograde Pyelogram 07/09/18 00:00 IMPRESSION: IMAGE(S) OBTAINED DURING PROCEDURE. KUB X-Ray 07/09/18 17:25 IMPRESSION: MULTIPLE BILATERAL RENAL CALCULI. 11 MM CALCIFICATION ON THE RIGHT SIDE OF THE LOWER LUMBAR SPINE SUSPICIOUS FOR A URETERAL CALCULUS. Renal Ultrasound 07/09/18 17:25 IMPRESSION: HYDRONEPHROSIS OF THE RIGHT KIDNEY. NONOBSTRUCTING CALCULUS IN THE LEFT KIDNEY. Assessment & Plan - Diagnosis (1) Acute renal failure Qualifiers: Acute renal failure type: unspecified Qualified Code(s): N17.9 - Acute kidney failure, unspecified Is this a current diagnosis for this admission?: Yes Plan: With fluids and treatment of the kidney stone acute kidney injury has improved. Function not resolved to normal yet. We will continue IV fluids and recheck BUN and creatinine in the morning. Tract infection. Awaiting culture results. will continue ceftriaxone. (2) Hydronephrosis, right Is this a current diagnosis for this admission?: Yes Plan: Expect resolution with treatment of kidney stones. Patient has a double-J stent will need follow-up with a urologist who will monitor this problem. Patient will be educated about things that need to be followed by the urologist upon discharge. (3) Nausea and vomiting Qualifiers: Vomiting type: unspecified Vomiting Intractability: non-intractable Qualified Code(s): R11.2 - Nausea with vomiting, unspecified Is this a current diagnosis for this admission?: Yes Plan: Resolving. Patient is now able to eat and drink better. Will continue fluid hydration and as needed antiemetics. (4) Right ureteral stone Is this a current diagnosis for this admission?: Yes (5) Sepsis Qualifiers: Sepsis type: sepsis due to unspecified organism Qualified Code(s): A41.9 - Sepsis, unspecified organism Is this a current diagnosis for this admission?: Yes Plan: White count down to 15. Sepsis parameters resolving. It is hemodynamically stable. We will continue ceftriaxone and await urine culture. (6) Acute pain Is this a current diagnosis for this admission?: Yes Plan: This is secondary to kidney stone. Patient was using Dilaudid which was helpful immediately but did not last very long. I have added oxycodone 5 mg p.o. every 4 hours as needed pain and the Dilaudid will be available for breakthrough severe pain. - Time Time Spent with patient: 15-24 minutes Medications reviewed and adjusted accordingly: Yes - Inpatient Certification Based on my medical assessment, after consideration of the patient's comorbidities, presenting symptoms, or acuity I expect that the services needed warrant INPATIENT care.: Yes I certify that my determination is in accordance with my understanding of Medicare's requirements for reasonable and necessary INPATIENT services [42 CFR 412.3e].: Yes Medical Necessity: Need for Pain Control, Need for IV Antibiotics
[2018-07-10 17:57] LABS: HEMATOCRIT 37.8 % (36.0-47.0); HEMOGLOBIN 12.9 g/dL (12.0-15.5); MEAN CORPUSCULAR HEMOGLOBIN 31.7 pg (27.0-33.4); MEAN CORPUSCULAR VOLUME 93 fl (80-97); PLATELET COUNT 193 10^3/uL (150-450); RED BLOOD COUNT 4.05 10^6/uL (3.72-5.28); RED CELL DISTRIBUTION WIDTH 12.2 % (11.5-14.0); WHITE BLOOD COUNT 12.7 10^3/uL (4.0-10.5)
[2018-07-10 18:12] LABS: ANION GAP 8 (5-19); BLOOD UREA NITROGEN 13 mg/dL (7-20); CALCIUM 8.6 mg/dL (8.4-10.2); CARBON DIOXIDE 24 mmol/L (22-30); CHLORIDE 108 mmol/L (98-107); GLUCOSE 96 mg/dL (75-110); POTASSIUM 3.8 mmol/L (3.6-5.0); SODIUM 139.8 mmol/L (137-145)
[2018-07-10] MEDS ORDERED: CEFTRIAXONE SODIUM 1,000 MG in NORMAL SALINE 50 ML IV SCH (22:00)
[2018-07-10] MEDS ORDERED: CEFTRIAXONE 1 GM/D5W RTU 1 GM/50 ML RTUPB IV SCH (22:00)
[2018-07-11] MEDS: HYDROMORPHONE HCL INJ/PF 2 MG/ML AMPULE IV PRN (02:00)
[2018-07-11] MEDS: NORMAL SALINE 1000 ML 1,000 ML IV PRN (03:57)
[2018-07-11] MEDS: OXYCODONE HCL IR 5 MG TABLET PO PRN ×2 (06:58→11:50)
[2018-07-11] MEDS: ENOXAPARIN SODIUM INJ 40 MG/0.4 ML DISP.SYRIN SUBCUT SCH (09:34)
[2018-07-11 14:17] VITALS: BP 138/76
--- NOTE | 2018-07-11 17:28 | PDOC DISCHARGE SUMMARY ---
General - Admit/Disc Date/PCP Admission Date/Primary Care Provider: 07/09/18 21:30 Discharge Date: 07/11/18 - Discharge Diagnosis (1) Acute renal failure Is this a current diagnosis for this admission?: Yes Summary: Secondary to kidney stone and dehydration. Resolved with treatment of kidney stone and with fluid hydration. (2) Hydronephrosis, right Is this a current diagnosis for this admission?: Yes Summary: Secondary to kidney stone. Patient has been treated by the urologist with instrumentation and has a double-J stent in place. Hydronephrosis should resolve. She has follow-up with the urologist planned within the week. (3) Nausea and vomiting Is this a current diagnosis for this admission?: Yes Summary: Secondary to kidney stone, resolved with treatment of stone and with rehydration. Eating well for discharge. (4) Right ureteral stone Is this a current diagnosis for this admission?: Yes Summary: Please see operative notes for treatment. She now has a double-J stent in place and will see a urologist within the week for further evaluation. She is significantly improved. He is discharged on 4 days of Cipro 500 mg twice daily for a total of days of antibiotics due to evidence of urinary tract infection and also instrumentation, as recommended by the urologist. (5) Sepsis Is this a current diagnosis for this admission?: Yes Summary: Parameters resolved with treatment of kidney stone, hydration, antibiotics. (6) Acute pain Is this a current diagnosis for this admission?: Yes Summary: Patient was still having some moderate pain on discharge. She was having good effect with the opioid pain medications and I discharged her with oxycodone 5 mg tabs #5 be used for the next 2 days and then she will transition to Tylenol and ibuprofen if needed. - Additional Information Resuscitation Status: Full Code Discharge Diet: As Tolerated Discharge Activity: Balance Activity w/Rest Prescriptions: Cefdinir [Omnicef 300 mg Capsule] 1 cap PO BID 4 Days #8 capsule Oxycodone HCl 5 mg PO TID PRN 2 Days #5 tablet PRN Reason: Severe Pain Home Medications: Tamsulosin HCl [Flomax 0.4 mg Cap.sr] 0.4 mg PO DAILY 07/10/18 Cefdinir [Omnicef 300 mg Capsule] 1 cap PO BID 4 Days #8 capsule 07/11/18 Oxycodone HCl 5 mg PO TID PRN 2 Days #5 tablet 07/11/18 History of Present Illness History of Present Illness: SHADI SAMSON is a 27 year old female who had right flank and urine nares pain. She was found to have a kidney stone. Hospital Course Hospital Course: SHADI SAMSON is a 27 year old female who comes to the emergency department with symptoms since last Wednesday midnight, complains of right back pain radiated to the right groin going up to 10/10 intensity, sharp like, not associated with fever, chills but she is having persistent nausea and vomiting with yellowish secretion and frequent gagging. Patient has not been drinking a lot of fluids as per her symptoms. Denies chest pain, shortness of breath, dizziness or lightheadedness, dysuria, hematuria frequency, diarrhea. Patient has history of kidney stones and she had 6 procedures done last year, 5 on the right side and one on the left side. Urology DR Beckham has been consulted as KUB and kidney ultrasound done, shows bilateral calculi with 11 mm ureteral stone in the right side with right hydronephrosis. White blood cells count 26 with left shift with acute renal failure. Urinalysis positive for infection. Physical Exam Vital Signs: Temp Pulse Resp BP Pulse Ox 98.1 F 77 18 138/76 H 100 07/11/18 14:14 07/11/18 14:14 07/11/18 14:14 07/11/18 14:14 07/11/18 14:14 Intake & Output 07/10/18 07/11/18 07/12/18 06:59 06:59 06:59 Intake Total 2399 4280 Output Total 300 2150 Balance 2099 2130 Weight 110.2 kg 115.8 kg General appearance: PRESENT: no acute distress, obese Head exam: ABSENT: atraumatic, normocephalic Eye exam: PRESENT: EOMI. ABSENT: conjunctival injection, scleral icterus Mouth exam: PRESENT: moist, neck supple, tongue midline Respiratory exam: PRESENT: clear to auscultation aggie, rales, unlabored. ABSENT : rhonchi, wheezes Cardiovascular exam: PRESENT: RRR. ABSENT: systolic murmur Pulses: PRESENT: normal radial pulses GI/Abdominal exam: PRESENT: normal bowel sounds, soft. ABSENT: distended, tenderness Rectal exam: PRESENT: deferred Extremities exam: ABSENT: pedal edema Musculoskeletal exam: PRESENT: ambulatory, normal inspection Neurological exam: PRESENT: alert, awake, oriented to person, oriented to place , oriented to situation, CN II-XII grossly intact Psychiatric exam: PRESENT: appropriate affect. ABSENT: anxious Skin exam: PRESENT: dry, intact, warm Results Laboratory Results: 07/10/18 17:45 07/10/18 17:45 07/10/18 07/10/18 17:45 17:45 WBC 12.7 H RBC 4.05 Hgb 12.9 Hct 37.8 MCV 93 MCH 31.7 MCHC 34.0 RDW 12.2 Plt Count 193 Sodium 139.8 Potassium 3.8 Chloride 108 H Carbon Dioxide 24 Anion Gap 8 BUN 13 Creatinine 0.99 Est GFR ( Amer) > 60 Est GFR (Non-Af Amer) > 60 Glucose 96 Calcium 8.6 Impressions: Retrograde Pyelogram 07/09/18 00:00 IMPRESSION: IMAGE(S) OBTAINED DURING PROCEDURE. KUB X-Ray 07/09/18 17:25 IMPRESSION: MULTIPLE BILATERAL RENAL CALCULI. 11 MM CALCIFICATION ON THE RIGHT SIDE OF THE LOWER LUMBAR SPINE SUSPICIOUS FOR A URETERAL CALCULUS. Renal Ultrasound 07/09/18 17:25 IMPRESSION: HYDRONEPHROSIS OF THE RIGHT KIDNEY. NONOBSTRUCTING CALCULUS IN THE LEFT KIDNEY. Qualifiers - * PATIENT BEING DISCHARGED WITH ANY OF THE FOLLOWING DIAGNOSIS: No
== END 2018-07-11 15:30 | disposition home or self-care (01) | DRG 872 ==
LOC: ER 16:03 → EH 21:30 → 3S 07-10 00:45
PROVIDERS: ADMIT Internal Medicine; ATTEND Internal Medicine
PROC: 0T768DZ Dilation of Right Ureter with Intraluminal Device, Via Natural or Artificial Opening Endoscopic (ICD-10-PCS; principal; 2018-07-09 23:45)
DX: A41.9 Sepsis, unspecified organism (principal); N13.6 Pyonephrosis; N17.9 Acute kidney failure, unspecified; E86.0 Dehydration; F31.9 Bipolar disorder, unspecified; F17.210 Nicotine dependence, cigarettes, uncomplicated; Z88.6 Allergy status to analgesic agent; Z87.442 Personal history of urinary calculi; R52 Pain, unspecified; F90.9 Attention-deficit hyperactivity disorder, unspecified type; Z91.018 Allergy to other foods
CPT/HCPCS: 36415; 74018; 74420; 76775; 80048; 80053; 81001; 81025; 85025; 85027; 85610; 85730; 87040; 87086; 87088; 910; 96372; 99285; C1758; C1769; C2617; J0696; J1170; J1650; J1885; J2250; J2405; J2704; J3010; Q9967; S0119; S0164

== ENCOUNTER 2018-07-27 12:34 | Emergency (ER) | payer SELFPAY ==
[2018-07-27 13:08] VITALS: BP 129/91
[2018-07-27] MEDS ORDERED: FENTANYL CITRATE INJ/PF 100 MCG/2 ML AMPUL IV ONE ×2 (14:37→17:29)
--- NOTE | 2018-07-27 14:39 | ER Document Report ---
ED Medical Screen (RME) - General Chief Complaint: Flank Pain Stated Complaint: FLANK PAIN, NAUSEA, FEVER Time Seen by Provider: 07/27/18 14:24 TRAVEL OUTSIDE OF THE [place] IN LAST 30 DAYS: No - HPI Patient complains to provider of: flank pain fever Onset: Other - This is a 27-year-old female that presents for evaluation of worsening flank pain as well as low-grade fevers. She has a history of a ureter stent placed for an obstructing kidney stone by Dr. Beckham since then she has been unable to have it retrieved, that happened approximately almost 2 months prior. The office is since closed. She has been unable to obtain follow- up. She notes that last night she had a fever of essentially 100 degrees. She is continued to have some pain on that side which is now worsened. - Related Data Allergies/Adverse Reactions: coconut Allergy (Verified 07/27/18 14:33) morphine Allergy (Verified 07/27/18 14:33) aspirin Adverse Reaction (Verified 07/27/18 14:33) Past Medical History - Social History Chew tobacco use (# tins/day): No Frequency of alcohol use: None Drug Abuse: None Family history: Reviewed & Not Pertinent Pulmonary Medical History: Reports: Hx Bronchitis, Hx COPD Renal/ Medical History: Reports: Hx Kidney Stones. Denies: Hx Peritoneal Dialysis Psychiatric Medical History: Reports: Hx Attention Deficit Hyperactivity Disorder, Hx Bipolar Disorder Past Surgical History: Reports: Hx Kidney (Renal Surgery), Hx Oral Surgery, Hx Urostomy, Other - Multiple urology intervention secondary to recurrent kidney stones - Immunizations Hx Diphtheria, Pertussis, Tetanus Vaccination: Yes History of Influenza Vaccine for 07/2017 - 12/2017 Season: Yes Physical Exam - Vital signs Vitals: Temp Pulse Resp BP Pulse Ox 97.8 F 108 H 16 129/91 H 99 07/27/18 13:04 07/27/18 13:04 07/27/18 13:04 07/27/18 13:04 07/27/18 13:04 Course - Re-evaluation Re-evalutation: 07/27/18 14:38 27-year-old female with a history of kidney stone requiring stent placement. Urologist office is subsequently closed she is unable to obtain follow-up as no other provider wants to remove her stent. She notes fevers last night. Has had infected stones in the past requiring instrumentation. Will obtain workup including urinalysis chemistry and count as well as CT for possible obstruction. I performed a rapid medical screening examination on this patient will defer further disposition determination workup and labs to next provider. - Vital Signs Vital signs: Temp Pulse Resp BP Pulse Ox 97.8 F 108 H 16 129/91 H 99 07/27/18 13:04 07/27/18 13:04 07/27/18 13:04 07/27/18 13:04 07/27/18 13:04
[2018-07-27 15:09] LABS: ADD MANUAL MICROSCOPIC YES; APPEARANCE,URINE CLOUDY; BILIRUBIN,URINE NEGATIVE (NEGATIVE); COLOR,URINE RED; GLUCOSE, URINE NEGATIVE (NEGATIVE); KETONES,URINE NEGATIVE (NEGATIVE); LEUKOCYTE ESTERASE,URINE LARGE (NEGATIVE); NITRITE,URINE NEGATIVE (NEGATIVE); PROTEIN,URINE 100 mg/dL (NEGATIVE); URINE SPECIFIC GRAVITY 1.018; UROBILINOGEN,URINE NEGATIVE mg/dL (<2.0)
[2018-07-27 15:10] LABS: BACTERIA,URINE TRACE /HPF; RBC,URINE TOO NUMEROUS TO CNT /HPF
[2018-07-27 15:46] LABS: ABSOLUTE BASOPHILS # (AUTO) 0.1 10^3/uL (0.0-0.2); ABSOLUTE EOSINOPHILS # (AUTO) 0.1 10^3/uL (0.0-0.6); ABSOLUTE LYMPHOCYTES (AUTO) 2.9 10^3/uL (0.5-4.7); ABSOLUTE MONOCYTES (AUTO) 0.5 10^3/uL (0.1-1.4); ABSOLUTE NEUT (AUTO) 7.8 10^3/uL (1.7-8.2); BASOPHILS % (AUTO) 0.9 % (0-2); EOSINOPHILS % (AUTO) 0.5 % (0-6); HEMATOCRIT 50.2 % (36.0-47.0); HEMOGLOBIN 17.1 g/dL (12.0-15.5); LYMPHOCYTES % (AUTO) 25.3 % (13-45); MEAN CORPUSCULAR HEMOGLOBIN 31.4 pg (27.0-33.4); MEAN CORPUSCULAR HGB CONC 34.1 g/dL (32.0-36.0); MEAN CORPUSCULAR VOLUME 92 fl (80-97); MONOCYTES % (AUTO) 4.7 % (3-13); PLATELET COUNT 361 10^3/uL (150-450); RED BLOOD COUNT 5.47 10^6/uL (3.72-5.28); RED CELL DISTRIBUTION WIDTH 12.4 % (11.5-14.0); SEGMENTED NEUTROPHILS % (AUTO) 68.6 % (42-78); TOTAL CELLS COUNTED % (AUTO) 100 %; WHITE BLOOD COUNT 11.4 10^3/uL (4.0-10.5)
[2018-07-27 16:00] LABS: ALANINE AMINOTRANSFERASE 28 U/L (9-52); ALBUMIN 4.6 g/dL (3.5-5.0); ALKALINE PHOSPHATASE 83 U/L (38-126); ANION GAP 11 (5-19); ASPARTATE AMINO TRANSFERASE 20 U/L (14-36); BILIRUBIN,DIRECT 0.2 mg/dL (0.0-0.4); BLOOD UREA NITROGEN 11 mg/dL (7-20); CARBON DIOXIDE 24 mmol/L (22-30); CHLORIDE 105 mmol/L (98-107); GLUCOSE 94 mg/dL (75-110); POTASSIUM 4.9 mmol/L (3.6-5.0); SODIUM 140.2 mmol/L (137-145); TOTAL PROTEIN 8.1 g/dL (6.3-8.2)
[2018-07-27] MEDS ORDERED: NORMAL SALINE 1000 ML 1,000 ML IV ONE (16:18)
[2018-07-27] MEDS ORDERED: CEFTRIAXONE INJ 1000 MG VIAL IV ONE (16:19)
--- NOTE | 2018-07-27 16:35 | RADIOLOGY REPORT (SQ) ---
EXAM DESCRIPTION: CT ABD/PELVIS NO ORAL OR IV COMPLETED DATE/TIME: 07/27/2018 3:53 pm REASON FOR STUDY: concern for obstructed ureter stent left COMPARISON: CT abdomen pelvis 11/14/2017, 03/23/2018, 04/18/2018 TECHNIQUE: CT scan of the abdomen and pelvis performed without intravenous or oral contrast. Images reviewed with lung, soft tissue, and bone windows. Reconstructed coronal and sagittal MPR images revi ewed. All images stored on PACS. All CT scanners at this facility use dose modulation, iterative reconstruction, and/or weight based d osing when appropriate to reduce radiation dose to as low as reasonably achievable (ALARA). [facility]: Dose Right [facility]: CareDose [facility]: Dose Right [facility]: Teradose 4D [facility]: [employer] RADIATION DOSE: CT Rad equipment meets quality standard of care and radiation dose reduction techniq ues were employed. CTDIvol: 20.2 mGy. DLP: 1070 mGy-cm.mGy. LIMITATIONS: None. FINDINGS: On the right side, the patient has a double-J ureteral stent in good positioning. A 10 mm right ureteral stone is present at the level where the ureter crosses over the iliac vessels best shown on axial image 60, adjacent to the stent. Stone measures 1,134 Hounsfield units. There i s mild right hydronephrosis and hydroureter proximal to the calculus No other right ureteral calculi. There are multiple bilateral intrarenal nonobstructive stones measuring less than 1 cm in size. No l eft-sided hydronephrosis or hydroureter. Left upper and lower lower pole cortical scarring. 2 cm le ft lower pole cyst. LOWER CHEST: No significant findings. No nodules or infiltrates. NON-CONTRASTED LIVER, SPLEEN, ADRENALS: Evaluation limited by lack of IV contrast. No identified sign ificant masses. PANCREAS: No masses. No peripancreatic inflammatory changes. GALLBLADDER: No identified stones by CT criteria. No inflammatory changes to suggest cholecystitis. AORTA AND RETROPERITONEUM: No aneurysm. No retroperitoneal masses or adenopathy. BOWEL AND PERITONEAL CAVITY: No obvious masses or inflammatory changes. No free fluid. APPENDIX: Normal. PELVIS, BLADDER, AND ABDOMINAL WALL:No abnormal masses. No free fluid. Bladder normal. Normal size u terus and ovaries. BONES: No significant findings. OTHER: No other significant finding. IMPRESSION: 10 mm right ureteral stone adjacent to the double-J ureteral stent. Mild upper right hy droureter and hydronephrosis. COMMENT: Quality ID # [id number]: Final reports with documentation of one or more dose reduction techniques (e.g., Automated exposure control, adjustment of the mA and/or kV according to patient size, use of iterative reconstruction technique) TECHNICAL DOCUMENTATION: JOB ID: [id number] [employer]- All Rights Reserved Reading location - IP/workstation name: [facility]
--- NOTE | 2018-07-27 17:28 | ER Document Report ---
ED General - General Chief Complaint: Flank Pain Stated Complaint: FLANK PAIN, NAUSEA, FEVER Time Seen by Provider: 07/27/18 14:24 Notes: Patient is a 27-year-old female with history of ureteral stone that presents to the emergency department for chief complaint of right flank pain. Patient states she is been having worsened right flank pain over the last several days, she does have a double-J stent that was placed at her last admission, however the urologist is no longer in town to help her. She was not able to get into the office because the urologist she did see no longer comes to this area. She denies having any fevers, chills, night sweats, just states she has a pain that she describes as an 8 out of 10 at its worst, and radiates towards the groin. She has had some dysuria and the pain seems to be worse with urination as well. She has had issues with kidney stones in the past. She does report having some nausea associated, but no recent vomiting. Past Medical History: Kidney stones Past Surgical History: Ureteral stents Social History: Admits to smoking cigarettes, denies alcohol or drug use Family History: Reviewed and noncontributory for presenting illness Allergies: Reviewed, see documented allergy list. REVIEW OF SYSTEMS: Unless otherwise stated in this report the patient's positive and negative responses for review of systems for constitutional, eyes, ENT, cardiovascular, respiratory, gastrointestinal, neurological, genitourinary, musculoskeletal, and integumentary systems and related systems to the presenting problem are either as stated in the HPI or were not pertinent or were negative for the symptoms and/or complaints related to the presenting medical problem. PHYSICAL EXAMINATION: Vital signs reviewed, nursing noted reviewed. GENERAL: Well-appearing, well-nourished and in no acute distress. HEAD: Atraumatic, normocephalic. EYES: Eyes appear normal, extraocular movements intact, sclera anicteric, conjunctiva are normal. ENT: nares patent, oropharynx clear without exudates. Moist mucous membranes. NECK: Normal range of motion, supple without lymphadenopathy LUNGS: Breath sounds clear to auscultation bilaterally and equal. No wheezes rales or rhonchi. HEART: Heart rate borderline tachycardic, regular rhythm without murmurs ABDOMEN: Soft, mild right-sided CVA tenderness, and suprapubic tenderness with palpation, normoactive bowel sounds. No rebound, guarding, or rigidity. No masses appreciated. EXTREMITIES: Nontender, good range of motion, no pitting or edema. NEUROLOGICAL: No focal neurological deficits. Moves all extremities spontaneously Motor and sensory grossly intact on exam. PSYCH: Normal mood, normal affect. SKIN: Warm, Dry, normal turgor, no rashes or lesions noted on exposed skin TRAVEL OUTSIDE OF THE [place] IN LAST 30 DAYS: No - Related Data Allergies/Adverse Reactions: coconut Allergy (Verified 07/27/18 14:33) morphine Allergy (Verified 07/27/18 14:33) aspirin Adverse Reaction (Verified 07/27/18 14:33) Past Medical History - Social History Smoking Status: Current Every Day Smoker Chew tobacco use (# tins/day): No Frequency of alcohol use: None Drug Abuse: None Family History: Reviewed & Not Pertinent Patient has suicidal ideation: No Patient has homicidal ideation: No Pulmonary Medical History: Reports: Hx Bronchitis, Hx COPD Renal/ Medical History: Reports: Hx Kidney Stones. Denies: Hx Peritoneal Dialysis Psychiatric Medical History: Reports: Hx Attention Deficit Hyperactivity Disorder, Hx Bipolar Disorder Past Surgical History: Reports: Hx Kidney (Renal Surgery), Hx Oral Surgery, Hx Urostomy, Other - Multiple urology intervention secondary to recurrent kidney stones - Immunizations Hx Diphtheria, Pertussis, Tetanus Vaccination: Yes Physical Exam - Vital signs Vitals: Temp Pulse Resp BP Pulse Ox 97.8 F 108 H 16 129/91 H 99 07/27/18 13:04 07/27/18 13:04 07/27/18 13:04 07/27/18 13:04 07/27/18 13:04 Course - Re-evaluation Re-evalutation: Patient seen and examined vital signs reviewed. Laboratory data and imaging were ordered as appropriate for the patient's presenting symptoms and complaint, with consideration of any critical or life threatening conditions that may be associated with their obtained history and exam as noted above. Patient was treated with IV fluids, fentanyl, and given a dose of IV Rocephin Results were reviewed when available and demonstrated mild leukocytosis on her CBC, normal renal function, she was noted to have leukocyte esterase positive urine, as well as hematuria, and trace bacteria, therefore this is why the patient was given IV antibiotics, this could be related to the patient's ureteral stent that is in place, versus possible urinary tract infection associated with a renal calculi. The patient was re-evaluated and was improved, pain was under better control, was afebrile I did place a call to [facility], to discuss this case with urology, and I spoke with Dr. Sathya Díaz, who recommended to have the patient follow-up with him in the office, he provided his phone number, and to call tomorrow, this was discussed with the patient and she agreed with this plan of care, he agreed with giving her a prescription for ciprofloxacin to take for an antibiotic, she is given a [place] 5 mg / 325 mg 6 pack to take home for breakthrough pain. Evaluation was most consistent with ureteral stone, hematuria, UTI. Results were discussed with the patient at this point, after careful consideration I feel that that patient can be discharged from the emergency department, the patient was educated treatments and reasons to return to the emergency department based on their presumed diagnosis as noted above, they were advised to followup with a primary care physician in 2-3 days. Patient was agreeable to plan of care. *Note is created using voice recognition software and may contain spelling, syntax or grammatical errors. Laboratory 07/27/18 07/27/18 07/27/18 13:05 15:25 15:25 WBC 11.4 H RBC 5.47 H Hgb 17.1 H Hct 50.2 H MCV 92 MCH 31.4 MCHC 34.1 RDW 12.4 Plt Count 361 Seg Neutrophils % 68.6 Lymphocytes % 25.3 Monocytes % 4.7 Eosinophils % 0.5 Basophils % 0.9 Absolute Neutrophils 7.8 Absolute Lymphocytes 2.9 Absolute Monocytes 0.5 Absolute Eosinophils 0.1 Absolute Basophils 0.1 Sodium 140.2 Potassium 4.9 Chloride 105 Carbon Dioxide 24 Anion Gap 11 BUN 11 Creatinine 0.85 Est GFR ( Amer) > 60 Est GFR (Non-Af Amer) > 60 Glucose 94 Calcium 10.0 Total Bilirubin 1.0 Direct Bilirubin 0.2 Neonat Total Bilirubin Not Reportable Neonat Direct Bilirubin Not Reportable Neonat Indirect Bili Not Reportable AST 20 ALT 28 Alkaline Phosphatase 83 Total Protein 8.1 Albumin 4.6 Urine Color RED Urine Appearance CLOUDY Urine pH 8.0 Ur Specific [place] 1.018 Urine Protein 100 H Urine Glucose (UA) NEGATIVE Urine Ketones NEGATIVE Urine Blood LARGE H Urine Nitrite NEGATIVE Urine Bilirubin NEGATIVE Urine Urobilinogen NEGATIVE Ur Leukocyte Esterase LARGE H Urine RBC TOO NUMEROUS TO CNT Urine WBC 10-20 Ur Squamous Epith Cells MODERATE Urine Bacteria TRACE Urine Ascorbic Acid NEGATIVE Urine HCG, Qual NEGATIVE Abdomen/Pelvis CT 07/27/18 14:36 IMPRESSION: 10 mm right ureteral stone adjacent to the double-J ureteral stent. Mild upper right hydroureter and hydronephrosis. - Vital Signs Vital signs: Temp Pulse Resp BP Pulse Ox 97.8 F 108 H 16 129/91 H 99 07/27/18 13:04 07/27/18 13:04 07/27/18 13:04 07/27/18 13:04 07/27/18 13:04 - Laboratory Result Diagrams: 07/27/18 15:25 07/27/18 15:25 Laboratory results interpreted by me: 07/27/18 07/27/18 13:05 15:25 WBC 11.4 H RBC 5.47 H Hgb 17.1 H Hct 50.2 H Urine Protein 100 H Urine Blood LARGE H Ur Leukocyte Esterase LARGE H Discharge - Discharge Clinical Impression: Ureteral stone, Flank pain Hematuria Qualifiers: Hematuria type: unspecified type Qualified Code(s): R31.9 - Hematuria, unspecified Leukocytosis Qualifiers: Leukocytosis type: unspecified Qualified Code(s): D72.829 - Elevated white blood cell count, unspecified UTI (urinary tract infection) Qualifiers: Urinary tract infection type: site unspecified Hematuria presence: with hematuria Qualified Code(s): N39.0 - Urinary tract infection, site not specified ; R31.9 - Hematuria, unspecified; R31.9 - Hematuria, unspecified Condition: Stable Disposition: HOME, SELF-CARE Instructions: Kidney Stone ([facility]) Additional Instructions: PLEASE CALL DR. SATHYA DÍAZ'S OFFICE NUMBER TOMORROW MORNING TO SCHEDULE APPOINTMENT. PHONE: [phone] TAKE CIPRO DIRECTED. Please return to the emergency department if you have any worsening, or concern of your symptoms. Please return to the emergency department if you develop chest pain, difficulty breathing, severe abdominal pain, or ongoing vomiting. Please follow-up with your primary care physician in 2-3 days and any other recommended physicians. If prescribed, take all medications as directed. If you have any questions or concerns do not hesitate to return the emergency department for evaluation. Prescriptions: Ciprofloxacin HCl [Cipro 500 mg Tablet] 500 mg PO BID #10 tablet
[2018-07-27] MEDS ORDERED: HYDROCODONE/ACETAMINOPHEN 5-325 MG (6 TAB/ER DISP) PO PRN (18:36)
== END 2018-07-27 19:15 | disposition home or self-care (01) ==
LOC: ER 12:34
DX: N20.1 Calculus of ureter (principal); N39.0 Urinary tract infection, site not specified; D72.829 Elevated white blood cell count, unspecified; R31.9 Hematuria, unspecified; R50.9 Fever, unspecified; R10.9 Unspecified abdominal pain; R11.0 Nausea; F17.210 Nicotine dependence, cigarettes, uncomplicated; Z87.442 Personal history of urinary calculi; Z88.6 Allergy status to analgesic agent
CPT/HCPCS: 96376; 99284; 96375; 96365; 36415; 87086; 85025; 81025; 87088; 80053; 81001; 74176; J3010; J0696; J7030

== ENCOUNTER 2018-08-30 22:46 | Emergency (ER) | payer SELFPAY ==
[2018-08-30] MEDS ORDERED: NORMAL SALINE 1000 ML 1,000 ML IV ONE (23:45)
[2018-08-30] MEDS ORDERED: IPRATROPIUM/ALBUTEROL 0.5-2.5 MG/3 ML AMPUL NEB ONE (23:45)
[2018-08-30] MEDS ORDERED: KETOROLAC TROMETHAMINE INJ/PF 30 MG/1 ML SDV IV ONE (23:46)
[2018-08-30] MEDS ORDERED: ONDANSETRON HCL INJ/PF 4 MG/2 ML SDV IV ONE ×2 (23:54→23:55)
--- NOTE | 2018-08-30 23:57 | ER Document Report ---
ED General - General Chief Complaint: Possible Kidney Stone Stated Complaint: RIGHT FLANK PAIN,NAUSEA,SHORTNESS OF BREATH Time Seen by Provider: 08/30/18 23:34 Notes: Patient is a 27-year-old female who has 2 different complaints. First complaint is of bronchitis. She said cough and congestion and wheezing for several days. She does not have a history of asthma. She says that she has had bronchitis in the past and had leftover inhaler for a long time ago but says it is not really helping. No fevers. Second complaint is of some right flank pain. She has a history of kidney stones. Approximately a month ago she had ureteral stent removed and 3 stones removed. She says she been doing well since then. Still having a bit of flank pain the last 24 hours and has noticed some blood in her urine and therefore has presented to the ER. No vomiting. No fevers. No diarrhea. No anterior abdominal pain. TRAVEL OUTSIDE OF THE [place] IN LAST 30 DAYS: No - Related Data Allergies/Adverse Reactions: coconut Allergy (Verified 07/27/18 14:33) morphine Allergy (Verified 07/27/18 14:33) aspirin Adverse Reaction (Verified 07/27/18 14:33) Past Medical History - Social History Smoking Status: Current Some Day Smoker Chew tobacco use (# tins/day): No Frequency of alcohol use: None Drug Abuse: None Family History: Reviewed & Not Pertinent Patient has suicidal ideation: No Patient has homicidal ideation: No Pulmonary Medical History: Reports: Hx Bronchitis, Hx COPD Renal/ Medical History: Reports: Hx Kidney Stones. Denies: Hx Peritoneal Dialysis Psychiatric Medical History: Reports: Hx Attention Deficit Hyperactivity Disorder, Hx Bipolar Disorder Past Surgical History: Reports: Hx Kidney (Renal Surgery) - lithrotripsy, Hx Oral Surgery, Hx Urostomy, Other - Multiple urology intervention secondary to recurrent kidney stones - Immunizations Hx Diphtheria, Pertussis, Tetanus Vaccination: Yes Review of Systems - Review of Systems Notes: My Normal Review Basic REVIEW OF SYSTEMS: CONSTITUTIONAL : Denies fever, chills, or sweats. EENT: Denies eye, ear, throat, or mouth pain or symptoms. Denies nasal or sinus congestion. CARDIOVASCULAR: Denies chest pain. RESPIRATORY: Wheezing and recurrent cough. GASTROINTESTINAL: Denies abdominal pain. Some right flank pain. Denies nausea , vomiting, or diarrhea. GENITOURINARY: Blood in urine. FEMALE GENITOURINARY: Denies vaginal bleeding, abnormal or irregular periods. MUSCULOSKELETAL: Denies neck or back pain or joint pain or swelling. SKIN: Denies rash or skin lesions. NEUROLOGICAL: Denies altered mental status or loss of consciousness. Denies headache. Denies weakness or paralysis or loss of use of either side. Denies problems with gait or speech. Denies sensory or motor loss. ALL OTHER SYSTEMS REVIEWED AND NEGATIVE. Physical Exam - Vital signs Vitals: Temp Pulse Resp BP Pulse Ox 98.4 F 96 16 150/100 H 98 08/30/18 22:53 08/30/18 22:53 08/30/18 22:53 08/30/18 22:53 08/30/18 22:53 - Notes Notes: General Appearance: Well nourished, alert, cooperative, no acute distress, mild obvious discomfort. Vitals: reviewed, See vital signs table. Head: no swelling or tenderness to the head Eyes: PERRL, EOMI, Conjuctiva clear Mouth: No decreasd moisture Lungs: Diffuse wheezing, No rales, No rhonci, No accessory muscle use, good air exchange bilaterally. Heart: Normal rate, Regular rythm, No murmur, no rub Abdomen: Normal BS, soft, No rigidity, No abdominal tenderness, no reproducible pain to palpation of the flank or back. No guarding, no rebound, no abdominal masses, no organomegaly Extremities: good pulses in all extremities, no edema. Skin: warm, dry, appropriate color, no rash Neuro: speech clear, oriented x 3, normal affect, responds appropriately to questions. Course - Re-evaluation Re-evalutation: 08/31/18 03:20 Patient's lung maya are completely cleared after the second breathing treatment. She looks well. We will discharge her home with prednisone. Patient's ultrasound did not show any evidence of hydronephrosis. She does have a few small intrarenal stones. It is possible she could have recently passed a stone that is no longer there where she has just a very very very small stone that is not causing any type of obstruction and therefore no hydronephrosis. Is also possible that maybe she is getting some irritation inside of her kidney due to the previous procedures. We will discharge home with a short course of pain medicine. We will have her follow-up with your urologist this week. Encouraged her return to ER if she has worsening pain, fevers, intractable vomiting, or she feels unwell. Patient agrees with plan will be discharged home. Dictation of this chart was performed using voice recognition software; therefore, there may be some unintended grammatical errors. - Vital Signs Vital signs: Temp Pulse Resp BP Pulse Ox 97.4 F 100 18 123/71 94 08/31/18 02:04 08/31/18 02:04 08/31/18 02:04 08/31/18 02:04 08/31/18 02:04 - Laboratory Result Diagrams: 08/30/18 23:50 08/30/18 23:50 Laboratory results interpreted by me: 08/30/18 08/30/18 23:50 23:50 WBC 11.2 H Urine Protein 30 H Urine Blood LARGE H Ur Leukocyte Esterase SMALL H Discharge - Discharge Clinical Impression: Hematuria Qualifiers: Hematuria type: unspecified type Qualified Code(s): R31.9 - Hematuria, unspecified Acute bronchitis Qualifiers: Bronchitis organism: unspecified organism Qualified Code(s): J20.9 - Acute bronchitis, unspecified Condition: Good Disposition: HOME, SELF-CARE Additional Instructions: There was not evidence of fluid back up in your kidney. It is therefore unlikely that you are passing a kidney stone. You do have a few small stones in your kidney. They could be causing some irritation but should not cause prolonged severe pain. Please call your urologist in the morning to make a follow up appointment for this week. Your urologist is Dr. Sathya Fraire [phone]. You should return to the ER if you have intractable pain, fevers, vomiting, or feel that you are worsening. You have bronchitis. Chest xray did not show evidence of pneumonia. Please take the Prednisone as prescribed. Please use the inhaler as 2 puffs every 2 hours as needed for wheezing. Please return to the ER immediately if you develop fever difficulty breathing, or wheezing not responding to the inhaler. Please be aware that [place] does have Tylenol (acetaminophen) in it. Please make sure you do not take more than 4000 mg of acetaminophen a day. Do not drive or care for children after you have taken this medication they will make you sleepy and sometimes impair judgment. Prescriptions: Prednisone [Deltasone 20 mg Tablet] 3 tab PO DAILY 4 Days tablet
[2018-08-30 23:59] LABS: ABSOLUTE BASOPHILS # (AUTO) 0.1 10^3/uL (0.0-0.2); ABSOLUTE EOSINOPHILS # (AUTO) 0.2 10^3/uL (0.0-0.6); ABSOLUTE LYMPHOCYTES (AUTO) 2.9 10^3/uL (0.5-4.7); ABSOLUTE MONOCYTES (AUTO) 0.9 10^3/uL (0.1-1.4); ABSOLUTE NEUT (AUTO) 7.2 10^3/uL (1.7-8.2); BASOPHILS % (AUTO) 0.8 % (0-2); EOSINOPHILS % (AUTO) 1.3 % (0-6); HEMATOCRIT 41.8 % (36.0-47.0); HEMOGLOBIN 14.3 g/dL (12.0-15.5); LYMPHOCYTES % (AUTO) 25.9 % (13-45); MEAN CORPUSCULAR HEMOGLOBIN 31.4 pg (27.0-33.4); MEAN CORPUSCULAR HGB CONC 34.1 g/dL (32.0-36.0); MEAN CORPUSCULAR VOLUME 92 fl (80-97); MONOCYTES % (AUTO) 7.7 % (3-13); PLATELET COUNT 276 10^3/uL (150-450); RED BLOOD COUNT 4.54 10^6/uL (3.72-5.28); RED CELL DISTRIBUTION WIDTH 12.8 % (11.5-14.0); SEGMENTED NEUTROPHILS % (AUTO) 64.3 % (42-78); TOTAL CELLS COUNTED % (AUTO) 100 %; WHITE BLOOD COUNT 11.2 10^3/uL (4.0-10.5)
[2018-08-31 00:23] LABS: ANION GAP 9 (5-19); BLOOD UREA NITROGEN 14 mg/dL (7-20); CALCIUM 9.7 mg/dL (8.4-10.2); CARBON DIOXIDE 28 mmol/L (22-30); CHLORIDE 107 mmol/L (98-107); GLUCOSE 97 mg/dL (75-110); POTASSIUM 4.1 mmol/L (3.6-5.0); SODIUM 143.7 mmol/L (137-145)
[2018-08-31 00:24] LABS: APPEARANCE,URINE CLEAR; BILIRUBIN,URINE NEGATIVE (NEGATIVE); GLUCOSE, URINE NEGATIVE (NEGATIVE); KETONES,URINE NEGATIVE (NEGATIVE); LEUKOCYTE ESTERASE,URINE SMALL (NEGATIVE); NITRITE,URINE NEGATIVE (NEGATIVE); PROTEIN,URINE 30 mg/dL (NEGATIVE); URINE SPECIFIC GRAVITY 1.014; UROBILINOGEN,URINE NEGATIVE mg/dL (<2.0)
[2018-08-31 00:25] LABS: COLOR,URINE RED
[2018-08-31] MEDS ORDERED: FENTANYL CITRATE INJ/PF 100 MCG/2 ML AMPUL IV ONE (00:53)
[2018-08-31] MEDS ORDERED: IPRATROPIUM/ALBUTEROL 0.5-2.5 MG/3 ML AMPUL NEB ONE (00:55)
--- NOTE | 2018-08-31 01:04 | RADIOLOGY REPORT (SQ) ---
EXAM DESCRIPTION: US RETROPERITONEUM COMPLETED DATE/TME: 08/30/2018 23:48 CLINICAL HISTORY: 27 years, Female, right flank pain, previous kidney stones COMPARISON: None. TECHNIQUE: Transverse and longitudinal sonographic images of the kidneys LIMITATIONS: None. FINDINGS: The right kidney has maximal diameter of 10.7 cm, the left 11.2 cm multiple nonobstructing renal calculi are suggested bilaterally. However, there is no hydronephrosis. No renal mass or perinephric fluid collection. The urinary bladder is incompletely distended, limiting its evaluation. IMPRESSION: Nonobstructing renal calculi bilaterally. No hydronephrosis. 2011 [employer]- All Rights Reserved
--- NOTE | 2018-08-31 01:09 | RADIOLOGY REPORT (SQ) ---
EXAM DESCRIPTION: XR CHEST 2 VIEWS COMPLETED DATE/TME: 08/30/2018 23:55 CLINICAL HISTORY: 27 years, Female, cough COMPARISON: None. NUMBER OF VIEWS: 2 TECHNIQUE: Frontal and lateral views of the chest LIMITATIONS: None. FINDINGS: Heart size is normal. Lungs are clear. No pneumothorax IMPRESSION: Negative chest 2010 [facility] [place] [employer]- All Rights Reserved
[2018-08-31] MEDS ORDERED: ALBUTEROL SULFATE HFA (90 MCG/PUFF) 8 GM MDI (1 MDI/ER DISP) IH ONE (01:45)
[2018-08-31] MEDS ORDERED: HYDROCODONE/ACETAMINOPHEN 5-325 MG (6 TAB/ER DISP) PO PRN (01:46)
[2018-08-31] MEDS ORDERED: ONDANSETRON ODT 4 MG TAB (6 TAB/ER DISP) PO PRN (01:46)
[2018-08-31 02:05] VITALS: BP 123/71
== END 2018-08-31 02:05 | disposition home or self-care (01) ==
LOC: ER 22:46
DX: J20.9 Acute bronchitis, unspecified (principal); J44.0 Chronic obstructive pulmonary disease with (acute) lower respiratory infection; R31.9 Hematuria, unspecified; N20.0 Calculus of kidney; R05 Cough; R06.2 Wheezing; R10.9 Unspecified abdominal pain; F17.200 Nicotine dependence, unspecified, uncomplicated; Z98.890 Other specified postprocedural states; Z91.018 Allergy to other foods; Z88.5 Allergy status to narcotic agent
CPT/HCPCS: 94640; 99284; 96361; 96374; 96375; 36415; 84703; 85025; 80048; 81001; 71046; 76770; J3010; J1885; J2405; J7030; J3490; J7620 ×2

== ENCOUNTER 2018-09-07 10:00 | Emergency (ER) | payer SELFPAY ==
[2018-09-07] MEDS ORDERED: NORMAL SALINE 1000 ML 1,000 ML IV ONE (10:33)
[2018-09-07] MEDS ORDERED: ONDANSETRON HCL INJ/PF 4 MG/2 ML SDV IV ONE (10:33)
[2018-09-07] MEDS ORDERED: KETOROLAC TROMETHAMINE INJ/PF 30 MG/1 ML SDV IV ONE (10:33)
--- NOTE | 2018-09-07 10:35 | ER Document Report ---
ED Medical Screen (RME) - General Chief Complaint: Back Pain Stated Complaint: BACK PAIN Time Seen by Provider: 09/07/18 10:25 Notes: Patient is a 27-year-old female that presents to the emergency department for chief complaint of low back pain. Patient reports history of chronic kidney stones and sees Dr. Rae, urology. She attempted to follow-up with him in the office but he is out for the holidays. She reports history of multiple stents in the past. Her pain is currently in the left lower back and feels similar to previous kidney stones. She denies fevers chills nausea and vomiting ROS: GENERAL: Denies fever of chills CV: Denies chest pain PHYSICAL EXAMINATION: GENERAL: Well-appearing, well-nourished and in no acute distress. HEAD: Atraumatic, normocephalic. EYES: Pupils equal round extraocular movements intact, conjunctiva are normal. ENT: Nares patent NECK: Normal range of motion LUNGS: No respiratory distress Musculoskeletal: Normal range of motion NEUROLOGICAL: Normal speech, normal gait. PSYCH: Normal mood, normal affect. MDM: Patient seen and examined for rapid initial assessment. Vital signs reviewed. A comprehensive ED assessment and evaluation of the patient, analysis of test results and completion of the medical decision making process will be conducted by additional ED providers. TRAVEL OUTSIDE OF THE [place] IN LAST 30 DAYS: No - Related Data Allergies/Adverse Reactions: coconut Allergy (Verified 07/27/18 14:33) morphine Allergy (Verified 07/27/18 14:33) aspirin Adverse Reaction (Verified 07/27/18 14:33) Past Medical History - Social History Chew tobacco use (# tins/day): No Frequency of alcohol use: None Drug Abuse: None Family history: Reviewed & Not Pertinent Pulmonary Medical History: Reports: Hx Bronchitis, Hx COPD Renal/ Medical History: Reports: Hx Kidney Stones. Denies: Hx Peritoneal Dialysis Psychiatric Medical History: Reports: Hx Attention Deficit Hyperactivity Disorder, Hx Bipolar Disorder Past Surgical History: Reports: Hx Kidney (Renal Surgery) - lithrotripsy, Hx Oral Surgery, Hx Urostomy, Other - Multiple urology intervention secondary to recurrent kidney stones - Immunizations Hx Diphtheria, Pertussis, Tetanus Vaccination: Yes History of Influenza Vaccine for 07/2017 - 12/2017 Season: Yes Physical Exam - Vital signs Vitals: Temp Pulse Resp BP Pulse Ox 98.0 F 110 H 16 144/97 H 100 09/07/18 10:04 09/07/18 10:04 09/07/18 10:04 09/07/18 10:04 09/07/18 10:04 Course - Vital Signs Vital signs: Temp Pulse Resp BP Pulse Ox 98.0 F 110 H 16 144/97 H 100 09/07/18 10:04 09/07/18 10:04 09/07/18 10:04 09/07/18 10:04 09/07/18 10:04
[2018-09-07 11:00] LABS: AMORPHOUS SEDIMENT,URINE TRACE /HPF; APPEARANCE,URINE CLOUDY; BILIRUBIN,URINE NEGATIVE (NEGATIVE); COLOR,URINE YELLOW; GLUCOSE, URINE NEGATIVE (NEGATIVE); KETONES,URINE NEGATIVE (NEGATIVE); LEUKOCYTE ESTERASE,URINE LARGE (NEGATIVE); NITRITE,URINE NEGATIVE (NEGATIVE); PROTEIN,URINE 30 mg/dL (NEGATIVE); URINE SPECIFIC GRAVITY 1.018; UROBILINOGEN,URINE NEGATIVE mg/dL (<2.0)
[2018-09-07 11:02] LABS: ABSOLUTE EOSINOPHILS # (AUTO) 0.1 10^3/uL (0.0-0.6); ABSOLUTE LYMPHOCYTES (AUTO) 2.2 10^3/uL (0.5-4.7); ABSOLUTE MONOCYTES (AUTO) 0.4 10^3/uL (0.1-1.4); ABSOLUTE NEUT (AUTO) 6.3 10^3/uL (1.7-8.2); BASOPHILS % (AUTO) 0.4 % (0-2); EOSINOPHILS % (AUTO) 0.6 % (0-6); HEMATOCRIT 45.3 % (36.0-47.0); HEMOGLOBIN 15.5 g/dL (12.0-15.5); LYMPHOCYTES % (AUTO) 24.3 % (13-45); MEAN CORPUSCULAR HEMOGLOBIN 31.4 pg (27.0-33.4); MEAN CORPUSCULAR HGB CONC 34.3 g/dL (32.0-36.0); MEAN CORPUSCULAR VOLUME 92 fl (80-97); PLATELET COUNT 321 10^3/uL (150-450); RED BLOOD COUNT 4.95 10^6/uL (3.72-5.28); RED CELL DISTRIBUTION WIDTH 12.5 % (11.5-14.0); SEGMENTED NEUTROPHILS % (AUTO) 70.7 % (42-78); TOTAL CELLS COUNTED % (AUTO) 100 %; WHITE BLOOD COUNT 8.9 10^3/uL (4.0-10.5)
--- NOTE | 2018-09-07 11:08 | ER Document Report ---
ED General - General Chief Complaint: Back Pain Stated Complaint: BACK PAIN Time Seen by Provider: 09/07/18 10:25 Mode of Arrival: Ambulatory Information source: Patient, [facility] Records Notes: 27-year-old female with bronchitis, history of kidney stones presents with complaint of left flank pain that started 5 days prior to arrival while at rest. She describes the pain as initially intermittent, achy but states it has progressively worse and to a sharp constant pain with associated nausea but no vomiting. Patient reports a fever of 101.25 days ago but states that it has not recurred. Patient was seen in flow emergency department in July 2018 and found to have several large right-sided kidney stones which required stent placement. Patient states that she followed up with a urologist in [place] Dr. Fraier who replaced the stent and performed a lithotripsy. He did warn the patient that she had several stones in her left kidney. She did attempted to call his office today but she states that she was told he is out in the office for the holidays. TRAVEL OUTSIDE OF THE [place] IN LAST 30 DAYS: No - HPI Onset: Other Onset/Duration: Gradual, Intermittent, Worse Quality of pain: Achy, Stabbing, Throbbing Severity: Moderate Associated symptoms: Chills, Fever, Nausea. denies: Chest pain, Diarrhea, Vomiting, Shortness of breath Exacerbated by: Movement, Walking Relieved by: Denies Similar symptoms previously: Yes Recently seen / treated by doctor: Yes - Related Data Allergies/Adverse Reactions: coconut Allergy (Verified 07/27/18 14:33) morphine Allergy (Verified 07/27/18 14:33) aspirin Adverse Reaction (Verified 07/27/18 14:33) Past Medical History - General Information source: Patient, [facility] Records - Social History Smoking Status: Current Every Day Smoker Cigarette use (# per day): Yes - 15 Chew tobacco use (# tins/day): No Smoking Education Provided: Yes - Smoking cessation counseling was provided for 4 minutes at the bedside Frequency of alcohol use: None Drug Abuse: None Lives with: Family Family History: Reviewed & Not Pertinent Patient has suicidal ideation: No Patient has homicidal ideation: No Pulmonary Medical History: Reports: Hx Bronchitis, Hx COPD Renal/ Medical History: Reports: Hx Kidney Stones. Denies: Hx Peritoneal Dialysis Psychiatric Medical History: Reports: Hx Attention Deficit Hyperactivity Disorder, Hx Bipolar Disorder Past Surgical History: Reports: Hx Kidney (Renal Surgery) - lithrotripsy, Hx Oral Surgery, Hx Urostomy, Other - Multiple urology intervention secondary to recurrent kidney stones - Immunizations Hx Diphtheria, Pertussis, Tetanus Vaccination: Yes Review of Systems - Review of Systems Notes: REVIEW OF SYSTEMS: CONSTITUTIONAL : Denies or sweats. Denies recent illness. Denies weight loss , recent hospitalizations. EENT: Denies visual changes, eye pain. Denies sore throat, oral lesions, difficulty swallowing. CARDIOVASCULAR: Denies chest pain. Denies palpitations. Denies lower extremity edema. RESPIRATORY: Denies cough. Denies shortness of breath, wheezing. GASTROINTESTINAL: Denies abdominal pain or distention. Denies vomiting, or diarrhea. Denies blood in vomitus, stools, or per rectum. Denies black, tarry stools. Denies constipation. GENITOURINARY: Denies difficulty urinating, painful urination, frequency, blood in urine, or vaginal discharge. MUSCULOSKELETAL: Denies neck pain or stiffness. Denies joint pain or swelling. SKIN: Denies rash, lesions or sores. HEMATOLOGIC : Denies easy bruising or bleeding. LYMPHATIC: Denies swollen glands. NEUROLOGICAL: Denies confusion or altered mental status. Denies loss of consciousness. Denies dizziness or lightheadedness. Denies headache. Denies weakness or paralysis. Denies problems difficulty with ambulation, slurred speech. Denies sensory loss, numbness, or tingling. Denies seizures. PSYCHIATRIC: Denies anxiety or stress. Denies depression, suicidal ideation, or homicidal ideation. Denies visual or auditory hallucinations. Physical Exam - Vital signs Vitals: Temp Pulse Resp BP Pulse Ox 98.0 F 110 H 16 144/97 H 100 09/07/18 10:04 09/07/18 10:04 09/07/18 10:04 09/07/18 10:04 09/07/18 10:04 Interpretation: Tachycardic. No: Febrile - Notes Notes: PHYSICAL EXAMINATION: GENERAL: Well-appearing, well-nourished and in no acute distress. HEAD: Atraumatic, normocephalic. EYES: Pupils equal round and reactive to light, extraocular movements intact, conjunctiva are normal. ENT: Nares patent, oropharynx clear without exudates. Moist mucous membranes. NECK: Normal range of motion, supple without lymphadenopathy LUNGS: Breath sounds clear to auscultation bilaterally and equal. No wheezes rales or rhonchi. HEART: Regular rate and rhythm without murmurs ABDOMEN: Soft, nontender, nondistended abdomen. No guarding, no rebound. No masses appreciated. No reproducible CVA tenderness bilaterally Female : deferred Musculoskeletal: Normal range of motion, no pitting or edema. No cyanosis. NEUROLOGICAL: Cranial nerves grossly intact. Normal speech, normal gait. Normal sensory, motor exams PSYCH: Normal mood, normal affect. SKIN: Warm, Dry, normal turgor, no rashes or lesions noted. Course - Re-evaluation Re-evalutation: Laboratory 09/07/18 09/07/18 09/07/18 10:24 10:42 10:42 WBC 8.9 RBC 4.95 Hgb 15.5 Hct 45.3 MCV 92 MCH 31.4 MCHC 34.3 RDW 12.5 Plt Count 321 Seg Neutrophils % 70.7 Lymphocytes % 24.3 Monocytes % 4.0 Eosinophils % 0.6 Basophils % 0.4 Absolute Neutrophils 6.3 Absolute Lymphocytes 2.2 Absolute Monocytes 0.4 Absolute Eosinophils 0.1 Absolute Basophils 0.0 Sodium 141.3 Potassium 4.5 Chloride 104 Carbon Dioxide 25 Anion Gap 12 BUN 12 Creatinine 0.97 Est GFR ( Amer) > 60 Est GFR (Non-Af Amer) > 60 Glucose 85 Calcium 9.9 Urine Color YELLOW Urine Appearance CLOUDY Urine pH 5.0 Ur Specific [place] 1.018 Urine Protein 30 H Urine Glucose (UA) NEGATIVE Urine Ketones NEGATIVE Urine Blood LARGE H Urine Nitrite NEGATIVE Urine Bilirubin NEGATIVE Urine Urobilinogen NEGATIVE Ur Leukocyte Esterase LARGE H Urine WBC (Auto) 41 Urine RBC (Auto) 48 Urine Bacteria (Auto) 1+ Squamous Epi Cells Auto 12 Amorphous Sediment Auto TRACE Urine Mucus (Auto) FEW Urine Ascorbic Acid NEGATIVE Renal Ultrasound 09/07/18 12:11 IMPRESSION: Nonobstructing renal calculi. No evidence for hydronephrosis. Other findings as noted above. 27-year-old female with no known nephro [id number] parents with complaint of left flank pain. Upon arrival patient is afebrile, normotensive and not hypoxic. She does not appear toxic or dehydrated. She is in no acute distress. Urinalysis is consistent with urinary tract infection. Patient has known stones in the left kidney. She has had nausea without vomiting. Bedside ultrasound was performed by myself showed evidence of hydronephrosis. After urinalysis showed infection formal ultrasound was performed also showed no hydronephrosis but a large nonobstructing renal calculi. Patient received IV fluids, Flomax, Toradol, Dilaudid, ceftriaxone during her ED course. She did recently undergo stent removal on the right side with Dr. Fraire urologist in [place]. She did attempt to call his office today but was told that he will be out of the office for the rest of the week. 09/07/18 13:27 Dr. Fraire's office contacted and a message was left. 09/07/18 13:32 Contacted [facility] transfer line for consult. 09/07/18 14:30 Patient reevaluated and is resting comfortably. I have tried contacting Dr. Fraire again via the transfer center and they state that they have tried to call him multiple times and have not been successful. 09/07/18 14:42 I Was not able to get in touch with Dr. Fraire but I did speak to the PA working for Dr. Skaggs who is on-call for urology at [facility]. I did review the imaging and lab results with them. He recommends a bladder scan and if it shows more than 100 cc of urine post void a Maloney catheter should be placed. I did perform a bedside ultrasound of the bladder which showed 15 cc of urine. He recommends home-going medications of Cipro since the patient recently completed a course of cephalexin. I did explain the recommendations to the patient and also explained that Cipro does have multiple side effects. 09/07/18 20:[address] Thurman office contacted me after the patient was discharged. I did update her of the findings of UTI with likely stones but no hydronephrosis. I informed her that I spoke to Dr. Skaggs regarding the patient's findings and his recommendations were to discharge the patient with Cipro and close follow-up. She states that she will be able to move up the patient's appointment now that she has an ultrasound. I did try to get in touch with the patient to tell her to return for copies of her imaging but everything called the number documented for the patient immediately disconnected. Patient was evaluated and treated as appropriate for the patient' s presenting symptoms and complaint, with consideration of any critical or life threatening conditions that may be associated with their obtained history and exam as noted above. All results were discussed with patient. Patient provided the opportunity to ask questions, and express concerns. Patient was educated on treatments based on their presumed diagnosis as noted above. At this time we will discharge the patient with return precautions and follow-up recommendations. Verbal discharge instructions given a the bedside. Medication warnings reviewed. Patient is in agreement with this plan and has verbalized understanding of return precautions. After careful consideration I feel that that patient can be safely discharged from the emergency department, they were advised to followup with a primary care physician in 2-3 days. Dictation on this chart was performed using voice recognition software and may result in unintended grammatical, spelling, syntax or errors. - Vital Signs Vital signs: Temp Pulse Resp BP Pulse Ox 97.9 F 98 16 136/87 H 99 09/07/18 14:54 09/07/18 14:54 09/07/18 10:04 09/07/18 14:54 09/07/18 14:54 - Laboratory Result Diagrams: 09/07/18 10:42 09/07/18 10:42 Laboratory results interpreted by me: 09/07/18 10:24 Urine Protein 30 H Urine Blood LARGE H Ur Leukocyte Esterase LARGE H - Diagnostic Test Radiology reviewed: Image reviewed, Reports reviewed Procedures - Ultrasound/Bedside Ultrasound/Bedside Time completed: 11:12 - Bedside ultrasound of the kidney was performed to assess for hydronephrosis which was absent bilaterally. Images attached to chart. Discharge - Discharge Clinical Impression: Renal colic on left side, Nephrolithiasis, History of kidney stones Hematuria Qualifiers: Hematuria type: unspecified type Qualified Code(s): R31.9 - Hematuria, unspecified UTI (urinary tract infection) Qualifiers: Urinary tract infection type: acute cystitis Hematuria presence: with hematuria Qualified Code(s): N30.01 - Acute cystitis with hematuria Condition: Good Disposition: HOME, SELF-CARE Instructions: Antinausea Medication ([facility]), Kidney Stone ([facility]), Toradol Injection ([facility]), Urinary Tract Infection ([facility]) Additional Instructions: Your urine shows findings consistent with a urinary tract infection. Please take all the antibiotics as directed even if your symptoms have improved. Please follow-up with your primary care physician as needed. Return to emergency room if you develop fever >101F, persistent vomiting, become lethargic , have severe pain in your sides, or any other symptoms that are concerning to you. Please call your urologist first thing tomorrow morning. Follow up with your [id number] hours for further care or return to the ED IMMEDIATELY if symptoms worsen or you have any concerns. If you cannot afford to follow up with your primary care physician a list of low cost clinics have been provided at the end of your discharge papers as well. Most prescribed medications have multiple side effects. The safest thing to do is when filling your prescription speak to your pharmacist regarding possible interactions with your normal home medications and over the counter medications such as Ibuprofen, Tylenol, Benadryl. If you experience any symptoms that cause you discomfort or concern you should discontinue the medication immediately and return to the emergency room or call your primary care physician. Prescriptions: Ketorolac Tromethamine [Toradol 10 mg Tablet] 10 mg PO Q6HP PRN #12 tablet PRN Reason: Ciprofloxacin HCl [Cipro 500 mg Tablet] 500 mg PO BID #14 tablet Tamsulosin HCl [Flomax 0.4 mg Cap.sr] 0.4 mg PO DAILY #7 cap.sr.24h Forms: Elevated Blood Pressure
[2018-09-07] MEDS ORDERED: FENTANYL CITRATE INJ/PF 100 MCG/2 ML AMPUL IV ONE (11:10)
[2018-09-07 11:18] LABS: ANION GAP 12 (5-19); BLOOD UREA NITROGEN 12 mg/dL (7-20); CALCIUM 9.9 mg/dL (8.4-10.2); CARBON DIOXIDE 25 mmol/L (22-30); CHLORIDE 104 mmol/L (98-107); GLUCOSE 85 mg/dL (75-110); POTASSIUM 4.5 mmol/L (3.6-5.0); SODIUM 141.3 mmol/L (137-145)
[2018-09-07] MEDS ORDERED: CEFTRIAXONE INJ 1000 MG VIAL IV ONE (12:10)
[2018-09-07] MEDS ORDERED: HYDROMORPHONE HCL INJ/PF 2 MG/ML AMPULE IV ONE (12:50)
--- NOTE | 2018-09-07 13:14 | RADIOLOGY REPORT (SQ) ---
EXAM DESCRIPTION: U/S RETROPERITON (RENAL/AORTA) COMPLETED DATE/TIME: 09/07/2018 12:56 pm REASON FOR STUDY: concern for hydro COMPARISON: Renal ultrasound dated 08/31/[address] scan dated 07/27/2018 TECHNIQUE: Dynamic and static grayscale images acquired of the kidneys and bladder and recorded on P ACS. Additional selected color Doppler and spectral images recorded. LIMITATIONS: None. FINDINGS: RIGHT KIDNEY: 13 cm in length Normal echogenicity. No solid or suspicious masses. N o hydronephrosis. 9 mm renal calculus is identified in the superior pole. LEFT KIDNEY: 11.8 cm in length. Normal echogenicity. No solid or suspicious masses. No hydrone phrosis. 11.9 mm renal calculus is identified in the superior pole. BLADDER: No masses. OTHER FINDINGS: No other significant finding. IMPRESSION: Nonobstructing renal calculi. No evidence for hydronephrosis. Other findings as noted above. TECHNICAL DOCUMENTATION: JOB ID: [id number] [employer]- All Rights Reserved Reading location - IP/workstation name: [email or web address]
[2018-09-07 14:55] VITALS: BP 136/87
== END 2018-09-07 15:07 | disposition home or self-care (01) ==
LOC: ER 10:00
DX: N20.0 Calculus of kidney (principal); N30.01 Acute cystitis with hematuria; R10.9 Unspecified abdominal pain; R11.0 Nausea; R50.9 Fever, unspecified; J44.9 Chronic obstructive pulmonary disease, unspecified; F17.210 Nicotine dependence, cigarettes, uncomplicated; Z71.6 Tobacco abuse counseling; Z98.890 Other specified postprocedural states; Z91.018 Allergy to other foods; Z88.5 Allergy status to narcotic agent
CPT/HCPCS: 36415; 85025; 80048; 81001; 76770; J3010; J1885; J1170; J0696; J2405; J7030

== ENCOUNTER 2018-12-09 04:52 | Emergency (ER) | payer SELFPAY ==
[2018-12-09 05:05] VITALS: BP 143/99
[2018-12-09 05:19] LABS: APPEARANCE,URINE CLOUDY; BILIRUBIN,URINE NEGATIVE (NEGATIVE); CALCIUM OXALATE CRYSTALS,URINE RARE /HPF; COLOR,URINE RED; GLUCOSE, URINE NEGATIVE (NEGATIVE); KETONES,URINE NEGATIVE (NEGATIVE); LEUKOCYTE ESTERASE,URINE TRACE (NEGATIVE); NITRITE,URINE NEGATIVE (NEGATIVE); PROTEIN,URINE 30 mg/dL (NEGATIVE); URIC ACID CRYSTALS,URINE MODERATE /HPF; URINE SPECIFIC GRAVITY 1.013; UROBILINOGEN,URINE NEGATIVE mg/dL (<2.0)
[2018-12-09] MEDS ORDERED: RINGERS SOLUTION,LACTATED 1,000 ML IV ONE (07:23)
--- NOTE | 2018-12-09 07:27 | ER Document Report ---
ED General - General Chief Complaint: Flank Pain Stated Complaint: FLANK PAIN,NAUSEA Time Seen by Provider: 12/09/18 06:57 Primary Care Provider: JEANNINE BOB MD [NO LOCAL MD] - 12/12/18 Notes: Patient is a 27-year-old female who presents to the emergency department with a chief complaint of left flank pain. Her symptoms started 4 days ago. She states that her pain comes and goes. The pain does not radiate but stays in one spot. Reports the pain feels like she had when she had a kidney stone last time. She does report some hematauria and frequency. Her last menstrual cycle was the beginning of the month. She has some associated nausea, but took some Zofran she had at home around 2:00 in the morning. She denies any diarrhea, abdominal pain, headache, or difficulty urinating. TRAVEL OUTSIDE OF THE [place] IN LAST 30 DAYS: No - Related Data Allergies/Adverse Reactions: coconut Allergy (Verified 07/27/18 14:33) morphine Allergy (Verified 07/27/18 14:33) aspirin Adverse Reaction (Verified 07/27/18 14:33) Past Medical History - General Information source: Patient - Social History Smoking Status: Current Every Day Smoker Frequency of alcohol use: None Drug Abuse: None Family History: Reviewed & Not Pertinent Patient has suicidal ideation: No Patient has homicidal ideation: No Pulmonary Medical History: Reports: Hx Bronchitis, Hx COPD Renal/ Medical History: Reports: Hx Kidney Stones. Denies: Hx Peritoneal Dialysis Psychiatric Medical History: Reports: Hx Attention Deficit Hyperactivity Disorder, Hx Bipolar Disorder Past Surgical History: Reports: Hx Kidney (Renal Surgery) - lithrotripsy, Hx Oral Surgery, Hx Urostomy, Other - Multiple urology intervention secondary to recurrent kidney stones - Immunizations Hx Diphtheria, Pertussis, Tetanus Vaccination: Yes Review of Systems - Review of Systems Notes: REVIEW OF SYSTEMS: CONSTITUTIONAL : Denies recent illness. Denies recent unintentional weight loss. Denies fever, chills, or sweats. EENT: Denies eye, ear, throat, or mouth pain, discharge, or symptoms. Denies nasal or sinus congestion. CARDIOVASCULAR: Denies chest pain. RESPIRATORY: Denies shortness of breath, cough, congestion, difficulty breathing, or wheezing. GASTROINTESTINAL: See HPI GENITOURINARY: See HPI MUSCULOSKELETAL: See HPI SKIN: Denies rash, itchiness, or lesions HEMATOLOGIC : Denies easy bruising or bleeding. LYMPHATIC: Denies swollen, painful, enlarged glands. NEUROLOGICAL: Denies no numbness or tingling denies weakness. Denies headache. Denies altered mental status. Denies alteration in speech. PSYCHIATRIC: Denies stress, anxiety, alteration in sleep patterns, or depression. All other systems reviewed and negative. Physical Exam - Vital signs Vitals: Temp Pulse Resp BP Pulse Ox 97.8 F 93 20 143/99 H 97 12/09/18 05:01 12/09/18 05:01 12/09/18 05:01 12/09/18 05:01 12/09/18 05:01 - Notes Notes: PHYSICAL EXAMINATION: GENERAL: Appears well, healthy, well-nourished, no acute distress. HEAD: Normocephalic, atraumatic. EYES: PERRL, conjunctiva normal, all extraocular movements intact, sclera nonicteric ENT: Moist mucous membranes. NECK: Supple, no noticeable swelling, redness, rash. Normal range of motion. LUNGS: Equal breath sounds bilaterally and clear to auscultation. No wheezes rales or rhonchi. CARDIOVASCULAR: S1-S2, regular rate, regular rhythm. Radial pulses 2+, normal. ABDOMEN: Normoactive bowel sounds. Soft, nontender, no guarding, no rebound tenderness, and no masses palpated. EXTREMITIES: Normal strength and range of motion, no pitting or edema. No cyanosis. NEUROLOGICAL: Moves all extremities upon command. Strength 5/5 in all extremities. PSYCH: Normal mood, normal affect. SKIN: Warm, dry. No rash, lesions, ulcerations noted. Normal skin turgor. BACK: Left CVA tenderness. Course - Re-evaluation Re-evalutation: Differential diagnosis includes renal calculi, hydronephrosis, left lower lobe pneumonia. 12/09/18 09:34 Patient does have kidney stones noted on ultrasound. She does have leukocytes in her urine, she will be started on antibiotics. She has some Flomax at home and I have instructed her to take her Flomax for the next week until she sees a urologist. I had a lengthy conversation with her about getting insurance through her employer. Urine will be sent for culture. I do not suspect patient has a left lower lobe pneumonia because she denies any difficulty breathing. Hydronephrosis has been ruled out with ultrasound. Verbal discharge instruction s were given to the patient. They verbalized understanding. They are stable for discharge. - Vital Signs Vital signs: Temp Pulse Resp BP Pulse Ox 97.8 F 93 20 143/99 H 97 12/09/18 05:01 12/09/18 05:01 12/09/18 05:01 12/09/18 05:01 12/09/18 05:01 - Laboratory Laboratory results interpreted by me: 12/09/18 04:57 Urine Protein 30 H Urine Blood LARGE H Ur Leukocyte Esterase TRACE H Discharge - Discharge Clinical Impression: Renal calculus, left Nausea and vomiting Qualifiers: Vomiting type: unspecified Vomiting Intractability: non-intractable Qualified Code(s): R11.2 - Nausea with vomiting, unspecified Condition: Stable Disposition: HOME, SELF-CARE Additional Instructions: You were seen today in the emergency department for left flank pain. You do have a kidney stone on the left side in your kidney. Please take the Flomax you have at home for the next 7 days. Please follow-up with your urologist. You have been given Toradol, medication to help with your pain. You have also been given antibiotics. Please take your antibiotics as prescribed. Make sure you continue to drink plenty of water. If you develop a fever greater than 100.4 F, stops urinating, or have any symptoms that are worrisome to you, please return to the emergency department. Prescriptions: Ketorolac Tromethamine [Toradol 10 mg Tablet] 10 mg PO Q6HP PRN #20 tablet PRN Reason: Cephalexin [Keflex] 500 mg PO BID #14 capsule Referrals: JEANNINE BOB MD [NO LOCAL MD] - 12/12/18
--- NOTE | 2018-12-09 08:39 | RADIOLOGY REPORT (SQ) ---
EXAM DESCRIPTION: U/S RETROPERITON (RENAL/AORTA) COMPLETED DATE/TIME: 12/09/2018 8:25 am REASON FOR STUDY: left flank pain COMPARISON: Renal ultrasound 09/07/2018, 08/31/2018, 07/09/2018 CT abdomen pelvis 07/27/2018, 04/18/2018 TECHNIQUE: Dynamic and static grayscale images acquired of the kidneys and bladder and recorded on P ACS. Additional selected color Doppler and spectral images recorded. LIMITATIONS: None. FINDINGS: RIGHT KIDNEY: 12.4 cm in length. No hydronephrosis, cysts, or masses. Echogenic shadowin g right lower pole intrarenal nonobstructive stones are present. No double-J ureteral stent is ident ified. LEFT KIDNEY: 10.8 cm in length. No hydronephrosis or masses. 2.4 cm left lower pole renal cortical cyst. Multiple small shadowing intrarenal nonobstructive stones. BLADDER: Decompressed, not well seen. No bladder calculi. Incidental finding of a left ovary 3 x 2 cm simple cyst. OTHER FINDINGS: No other significant finding. IMPRESSION: Bilateral intrarenal nonobstructive kidney stones. No hydronephrosis 3 x 2 cm left ovarian cyst similar compared to CT 07/27/2018. TECHNICAL DOCUMENTATION: JOB ID: [id number] [email or web address]- All Rights Reserved Reading location - IP/workstation name: [email or web address]
[2018-12-09] MEDS ORDERED: KETOROLAC TROMETHAMINE INJ/PF 30 MG/1 ML SDV IV ONE (08:40)
== END 2018-12-09 10:08 | disposition home or self-care (01) ==
LOC: ER 04:52
DX: N20.0 Calculus of kidney (principal); R11.2 Nausea with vomiting, unspecified; R10.9 Unspecified abdominal pain; F17.200 Nicotine dependence, unspecified, uncomplicated; J44.9 Chronic obstructive pulmonary disease, unspecified; Z88.6 Allergy status to analgesic agent; Z87.442 Personal history of urinary calculi
CPT/HCPCS: 99284; 96361; 96374; 87086; 81001; 76770; J1885; J7120

== ENCOUNTER 2019-02-06 06:21 | Emergency (ER) | payer SELFPAY ==
[2019-02-06] MEDS ORDERED: NORMAL SALINE 1000 ML 1,000 ML IV ONE (08:32)
--- NOTE | 2019-02-06 08:34 | ER Document Report ---
ED Medical Screen (RME) - General Chief Complaint: Possible Kidney Stone Stated Complaint: FLANK PAIN Time Seen by Provider: 02/06/19 08:29 Mode of Arrival: Ambulatory Information source: Patient Notes: Patient presents emergency department with complaints of hematuria and pain with void since Wednesday. Complaints of right flank pain. Reports extensive history of kidney stones with stents placed. Complains of some nausea some diarrhea denies fever. Dictation of this chart was performed using voice recognition software; therefore, there may be some unintended grammatical errors. TRAVEL OUTSIDE OF THE [place] IN LAST 30 DAYS: No - Related Data Allergies/Adverse Reactions: coconut Allergy (Verified 07/27/18 14:33) morphine Allergy (Verified 07/27/18 14:33) aspirin Adverse Reaction (Verified 07/27/18 14:33) Past Medical History - Social History Family history: Reviewed & Not Pertinent Pulmonary Medical History: Reports: Hx Bronchitis, Hx COPD Renal/ Medical History: Reports: Hx Kidney Stones. Denies: Hx Peritoneal Dialysis Psychiatric Medical History: Reports: Hx Attention Deficit Hyperactivity Disorder, Hx Bipolar Disorder Past Surgical History: Reports: Hx Kidney (Renal Surgery) - lithrotripsy, Hx Oral Surgery, Hx Urostomy, Other - Multiple urology intervention secondary to recurrent kidney stones - Immunizations Hx Diphtheria, Pertussis, Tetanus Vaccination: Yes History of Influenza Vaccine for 07/2017 - 12/2017 Season: Yes Physical Exam - Vital signs Vitals: Temp Pulse Resp BP Pulse Ox 97.5 F 88 17 139/90 H 100 02/06/19 06:25 02/06/19 06:25 02/06/19 06:25 02/06/19 06:25 02/06/19 06:25 Course - Vital Signs Vital signs: Temp Pulse Resp BP Pulse Ox 97.5 F 88 17 139/90 H 100 02/06/19 06:25 02/06/19 06:25 02/06/19 06:25 02/06/19 06:25 02/06/19 06:25
[2019-02-06 09:26] LABS: APPEARANCE,URINE CLOUDY; BILIRUBIN,URINE NEGATIVE (NEGATIVE); CALCIUM OXALATE CRYSTALS,URINE MODERATE /HPF; COLOR,URINE AMBER; GLUCOSE, URINE NEGATIVE (NEGATIVE); KETONES,URINE NEGATIVE (NEGATIVE); LEUKOCYTE ESTERASE,URINE MODERATE (NEGATIVE); NITRITE,URINE NEGATIVE (NEGATIVE); PROTEIN,URINE 30 mg/dL (NEGATIVE); URINE SPECIFIC GRAVITY 1.021; UROBILINOGEN,URINE NEGATIVE mg/dL (<2.0)
[2019-02-06] MEDS ORDERED: KETOROLAC TROMETHAMINE INJ/PF 30 MG/1 ML SDV IV ONE (10:17)
[2019-02-06 10:22] LABS: ABSOLUTE BASOPHILS # (AUTO) 0.1 10^3/uL (0.0-0.2); ABSOLUTE LYMPHOCYTES (AUTO) 2.4 10^3/uL (0.5-4.7); ABSOLUTE MONOCYTES (AUTO) 0.6 10^3/uL (0.1-1.4); ABSOLUTE NEUT (AUTO) 9.6 10^3/uL (1.7-8.2); BASOPHILS % (AUTO) 0.4 % (0-2); EOSINOPHILS % (AUTO) 0.3 % (0-6); HEMATOCRIT 43.4 % (36.0-47.0); HEMOGLOBIN 14.9 g/dL (12.0-15.5); LYMPHOCYTES % (AUTO) 19.2 % (13-45); MEAN CORPUSCULAR HEMOGLOBIN 31.2 pg (27.0-33.4); MEAN CORPUSCULAR HGB CONC 34.3 g/dL (32.0-36.0); MEAN CORPUSCULAR VOLUME 91 fl (80-97); MONOCYTES % (AUTO) 4.5 % (3-13); PLATELET COUNT 256 10^3/uL (150-450); RED BLOOD COUNT 4.78 10^6/uL (3.72-5.28); RED CELL DISTRIBUTION WIDTH 13.1 % (11.5-14.0); SEGMENTED NEUTROPHILS % (AUTO) 75.6 % (42-78); TOTAL CELLS COUNTED % (AUTO) 100 %; WHITE BLOOD COUNT 12.7 10^3/uL (4.0-10.5)
--- NOTE | 2019-02-06 11:29 | RADIOLOGY REPORT (SQ) ---
EXAM DESCRIPTION: CT ABD/PELVIS NO ORAL OR IV COMPLETED DATE/TIME: 02/06/2019 11:12 am REASON FOR STUDY: Right Flank Pain, Hematuria, Hx of Stones COMPARISON: 07/27/2018 TECHNIQUE: CT scan of the abdomen and pelvis performed without intravenous or oral contrast. Images reviewed with lung, soft tissue, and bone windows. Reconstructed coronal and sagittal MPR images revi ewed. All images stored on PACS. All CT scanners at this facility use dose modulation, iterative reconstruction, and/or weight based d osing when appropriate to reduce radiation dose to as low as reasonably achievable (ALARA). [facility]: Dose Right [facility]: CareDose [facility]: Dose Right [facility]: Teradose 4D [facility]: Smart Rootless RADIATION DOSE: CT Rad equipment meets quality standard of care and radiation dose reduction techniq ues were employed. CTDIvol: 18.8 mGy. DLP: 1013 mGy-cm.mGy. LIMITATIONS: None. FINDINGS: LOWER CHEST: No significant findings. No nodules or infiltrates. NON-CONTRASTED LIVER, SPLEEN, ADRENALS: Evaluation limited by lack of IV contrast. No identified sign ificant masses. PANCREAS: No masses. No peripancreatic inflammatory changes. GALLBLADDER: No identified stones by CT criteria. No inflammatory changes to suggest cholecystitis. RIGHT KIDNEY AND URETER: No suspicious masses. Assessment limited by lack of IV contrast. There are nonobstructive calculi and parenchymal calcifications of the right kidney. No hydronephrosis or hy droureter. LEFT KIDNEY AND URETER: No suspicious masses. Assessment limited by lack of IV contrast. Nonobstruc tive calculi and parenchymal calcifications of the left kidney. No hydronephrosis or hydroureter. AORTA AND RETROPERITONEUM: No aneurysm. No retroperitoneal masses or adenopathy. BOWEL AND PERITONEAL CAVITY: No obvious masses or inflammatory changes. No free fluid. APPENDIX: Diminutive although normal appendix in the right lower quadrant. PELVIS, BLADDER, AND ABDOMINAL WALL:No abnormal masses. No free fluid. Bladder normal. BONES: No significant findings. OTHER: No other significant finding. IMPRESSION: There are multiple bilateral nonobstructive calculi and parenchymal calcifications of th e kidneys without evidence of ureteral calculus or hydronephrosis. There are no noncontrast CT findi ngs to explain right lower quadrant pain or hematuria. COMMENT: Quality ID # [id number]: Final reports with documentation of one or more dose reduction techniques (e.g., Automated exposure control, adjustment of the mA and/or kV according to patient size, use of iterative reconstruction technique) TECHNICAL DOCUMENTATION: JOB ID: [id number] [employer]- All Rights Reserved Reading location - IP/workstation name: [id number]
[2019-02-06 11:42] LABS: ALANINE AMINOTRANSFERASE 22 U/L (9-52); ALBUMIN 3.7 g/dL (3.5-5.0); ALKALINE PHOSPHATASE 76 U/L (38-126); ANION GAP 6 (5-19); ASPARTATE AMINO TRANSFERASE 13 U/L (14-36); BILIRUBIN,DIRECT 0.2 mg/dL (0.0-0.4); BILIRUBIN,TOTAL 0.8 mg/dL (0.2-1.3); BLOOD UREA NITROGEN 14 mg/dL (7-20); CALCIUM 8.9 mg/dL (8.4-10.2); CARBON DIOXIDE 25 mmol/L (22-30); CHLORIDE 108 mmol/L (98-107); GLUCOSE 80 mg/dL (75-110); POTASSIUM 4.3 mmol/L (3.6-5.0); SODIUM 138.8 mmol/L (137-145); TOTAL PROTEIN 6.5 g/dL (6.3-8.2)
--- NOTE | 2019-02-06 11:44 | ER Document Report ---
Entered by SHANNAN BOURNE SCRIBE 02/06/19 0941 Acting as scribe for:ABHILASH PASTOR MD ED General - General Chief Complaint: Possible Kidney Stone Stated Complaint: FLANK PAIN Time Seen by Provider: 02/06/19 08:29 Mode of Arrival: Ambulatory Information source: Patient Notes: Patient is a 28-year-old female with a history of kidney stones presents to the emergency department complaining of hematuria, pain with urination and right- sided flank pain onset yesterday. Patient also complains of associated nausea. Patient describes her pain as a pressure when voiding. TRAVEL OUTSIDE OF THE [place] IN LAST 30 DAYS: No - Related Data Allergies/Adverse Reactions: coconut Allergy (Verified 02/06/19 08:34) morphine Allergy (Verified 02/06/19 08:34) Past Medical History - General Information source: Patient - Social History Smoking Status: Former Smoker Chew tobacco use (# tins/day): No Frequency of alcohol use: None Drug Abuse: None Family History: Reviewed & Not Pertinent Patient has suicidal ideation: No Patient has homicidal ideation: No Pulmonary Medical History: Reports: Hx Bronchitis, Hx COPD Renal/ Medical History: Reports: Hx Kidney Stones Psychiatric Medical History: Reports: Hx Attention Deficit Hyperactivity Disorder, Hx Bipolar Disorder Past Surgical History: Reports: Hx Kidney (Renal Surgery) - lithrotripsy, Hx Ora l Surgery, Hx Urostomy, Other - Multiple urology intervention secondary to recurrent kidney stones - Immunizations Hx Diphtheria, Pertussis, Tetanus Vaccination: Yes Review of Systems - Review of Systems Constitutional: No symptoms reported EENT: No symptoms reported Cardiovascular: No symptoms reported Respiratory: No symptoms reported Gastrointestinal: See HPI, Nausea Genitourinary: See HPI, Flank pain, Hematuria, Pain Female Genitourinary: No symptoms reported Musculoskeletal: No symptoms reported Skin: No symptoms reported Hematologic/Lymphatic: No symptoms reported Neurological/Psychological: No symptoms reported -: Yes All other systems reviewed and negative Physical Exam - Vital signs Vitals: Temp Pulse Resp BP Pulse Ox 97.5 F 88 17 139/90 H 100 02/06/19 06:25 02/06/19 06:25 02/06/19 06:25 02/06/19 06:25 02/06/19 06:25 - Notes Notes: GENERAL: Alert, interacts well. No acute distress. HEAD: Normocephalic, atraumatic. EYES: Pupils equal, round, and reactive to light. Extraocular movements intact. ENT: Oral mucosa moist, tongue midline. NECK: Full range of motion. Supple. Trachea midline. LUNGS: Clear to auscultation bilaterally, no wheezes, rales, or rhonchi. No respiratory distress. HEART: Regular rate and rhythm. No murmurs, gallops, or rubs. ABDOMEN: Soft, right sided tenderness to palpation. Non-distended. Bowel sounds present in all 4 quadrants. No guarding, rigidity, or rebound. EXTREMITIES: Moves all 4 extremities spontaneously. NEUROLOGICAL: Alert and oriented x3. Normal speech. PSYCH: Normal affect, normal mood. SKIN: Warm, dry, normal turgor. No rashes or lesions noted. BACK: No CVA tenderness to palpation. Course - Re-evaluation Re-evalutation: 02/06/19 11:52 CT scan shows multiple bilateral renal stones which is what is usually found on CT scans and ultrasounds. There are no signs of ureteral stones or hydronephrosis or hydroureter. The urine does suggest urinary tract infection. - Vital Signs Vital signs: Temp Pulse Resp BP Pulse Ox 97.7 F 80 18 142/93 H 100 02/06/19 10:12 02/06/19 10:12 02/06/19 10:12 02/06/19 10:12 02/06/19 10:12 - Laboratory Result Diagrams: 02/06/19 10:00 02/06/19 10:55 Laboratory results interpreted by me: 02/06/19 02/06/19 02/06/19 07:15 10:00 10:55 WBC 12.7 H Absolute Neutrophils 9.6 H Chloride 108 H AST 13 L Urine Protein 30 H Urine Blood LARGE H Ur Leukocyte Esterase MODERATE H - Diagnostic Test Radiology reviewed: Image reviewed, Reports reviewed - CT scan shows multiple bilateral nonobstructive calculi and parenchymal calcifications of the kidneys without evidence of ureteral calculus or hydronephrosis. There are no noncontrast CT findings to explain the right lower quadrant pain or the hematur ia. Discharge - Discharge Clinical Impression: Acute right flank pain, Bilateral kidney stones Urinary tract infection Qualifiers: Urinary tract infection type: site unspecified Hematuria presence: with hematuria Qualified Code(s): N39.0 - Urinary tract infection, site not specified Condition: Stable Disposition: HOME, SELF-CARE Additional Instructions: Flank Pain We weren't able to prove an exact cause for your flank pain. Pain in the flank can be caused by a muscle strain or spasm. Sometimes a kidney stone causes pain, but can't be found on our tests. Infection in the kidney should be evident on a urine test. Early shingles can occasionally cause flank pain, without the rash that proves the diagnosis. On rare occasions, disease of the pancreas, aorta, spleen, or colon can create pain in the flank. At this time, there's no evidence of a dangerous condition, and it seems safe for you to be at home. If the pain goes away and does not come back, no further testing will be needed. If pain persists, or becomes more severe, we may need to repeat some tests or order additional new testing. Blood in the urine, urgency to urinate frequently, and pain that radiates to the groin can indicate a kidney stone. Fever may mean that the pain is due to infection, either of the kidney or the colon (diverticulitis). If your pain is early shingles, you should develop an eruption of blisters in the painful area within a few days. Call the doctor or return if you have pain that is spreading or becoming more severe, pain that does not resolve with time, fever, or any other new symptoms. Urinary Tract Infection Your evaluation indicates that you have a urinary tract infection. This is due to germs growing in the bladder. This is a common problem. This infection usually responds quickly to antibiotics. Your antibiotic should be taken exactly as prescribed. Drink plenty of fluids -- three to four quarts a day. Occasionally, a bladder anesthetic will be prescribed to help stop the feeling of urgency until the antibiotic has a chance to clear the infection. This may cause your urine to be dark orange. Certain urine infections require a culture. If the doctor obtained a culture, the results will be back in two days. You should call to see if a change in treatment is needed. A repeat urinalysis after you finish treatment is often recommended. The physician will let you know if further testing is required. Call the doctor if you develop fever, chills, flank pain, inability to u rinate, or blood in the urine. Take medications as prescribed. Drink plenty of fluids. Follow-up with your primary care provider if not improving. RETURN TO THE EMERGENCY ROOM IF ANY NEW OR WORSENING SYMPTOMS. Prescriptions: Sulfamethoxazole/Trimethoprim [Septra-Ds 800-160 mg Tablet] 1 tab PO BID #10 tablet Scribe Attestation: 02/06/19 10:48 I personally performed the services described in the documentation, reviewed and edited the documentation which was dictated to the scribe in my presence, and it accurately records my words and actions. I personally performed the services described in the documentation, reviewed and edited the documentation which was dictated to the scribe in my presence, and it accurately records my words and actions.
[2019-02-06] MEDS ORDERED: ACETAMINOPHEN 325 MG TABLET PO ONE (12:13)
[2019-02-06 12:34] VITALS: BP 131/77
== END 2019-02-06 12:49 | disposition home or self-care (01) ==
LOC: ER 06:21
DX: N39.0 Urinary tract infection, site not specified (principal); R31.9 Hematuria, unspecified; N20.0 Calculus of kidney; R11.0 Nausea; J44.9 Chronic obstructive pulmonary disease, unspecified; Z91.018 Allergy to other foods; Z88.5 Allergy status to narcotic agent; Z87.891 Personal history of nicotine dependence
CPT/HCPCS: 99284; 96361; 96374; 36415; 87086; 84703; 85025; 81025; 80053; 81001; 74176; J1885; J7030

== ENCOUNTER 2019-07-22 23:43 | Emergency (ER) | payer SELFPAY ==
[2019-07-23 00:43] LABS: APPEARANCE,URINE CLOUDY; BILIRUBIN,URINE NEGATIVE (NEGATIVE); CALCIUM OXALATE CRYSTALS,URINE MODERATE /HPF; COLOR,URINE YELLOW; GLUCOSE, URINE NEGATIVE (NEGATIVE); KETONES,URINE NEGATIVE (NEGATIVE); LEUKOCYTE ESTERASE,URINE MODERATE (NEGATIVE); NITRITE,URINE NEGATIVE (NEGATIVE); PROTEIN,URINE 30 mg/dL (NEGATIVE); URINE SPECIFIC GRAVITY 1.023; UROBILINOGEN,URINE NEGATIVE mg/dL (<2.0)
[2019-07-23] MEDS ORDERED: TAMSULOSIN HCL 0.4 MG CAP.SR.24H PO ONE (01:15)
[2019-07-23] MEDS ORDERED: KETOROLAC TROMETHAMINE 60 MG/2 ML SDV IM ONE (01:15)
[2019-07-23 01:27] LABS: ABSOLUTE EOSINOPHILS # (AUTO) 0.1 10^3/uL (0.0-0.6); ABSOLUTE MONOCYTES (AUTO) 0.5 10^3/uL (0.1-1.4); ABSOLUTE NEUT (AUTO) 6.1 10^3/uL (1.7-8.2); BASOPHILS % (AUTO) 0.3 % (0-2); EOSINOPHILS % (AUTO) 1.4 % (0-6); HEMATOCRIT 40.7 % (36.0-47.0); HEMOGLOBIN 13.7 g/dL (12.0-15.5); LYMPHOCYTES % (AUTO) 37.5 % (13-45); MEAN CORPUSCULAR HEMOGLOBIN 29.5 pg (27.0-33.4); MEAN CORPUSCULAR HGB CONC 33.7 g/dL (32.0-36.0); MEAN CORPUSCULAR VOLUME 87 fl (80-97); MONOCYTES % (AUTO) 4.6 % (3-13); PLATELET COUNT 341 10^3/uL (150-450); RED BLOOD COUNT 4.65 10^6/uL (3.72-5.28); RED CELL DISTRIBUTION WIDTH 12.6 % (11.5-14.0); SEGMENTED NEUTROPHILS % (AUTO) 56.2 % (42-78); TOTAL CELLS COUNTED % (AUTO) 100 %; WHITE BLOOD COUNT 10.8 10^3/uL (4.0-10.5)
[2019-07-23 01:47] LABS: ALBUMIN 4.2 g/dL (3.5-5.0); ALKALINE PHOSPHATASE 73 U/L (38-126); ANION GAP 11 (5-19); ASPARTATE AMINO TRANSFERASE 17 U/L (14-36); BILIRUBIN,DIRECT 0.1 mg/dL (0.0-0.4); BILIRUBIN,TOTAL 0.4 mg/dL (0.2-1.3); BLOOD UREA NITROGEN 16 mg/dL (7-20); CALCIUM 9.7 mg/dL (8.4-10.2); CARBON DIOXIDE 25 mmol/L (22-30); CHLORIDE 104 mmol/L (98-107); GLUCOSE 103 mg/dL (75-110); POTASSIUM 3.8 mmol/L (3.6-5.0); TOTAL PROTEIN 7.2 g/dL (6.3-8.2)
--- NOTE | 2019-07-23 01:53 | ER Document Report ---
ED General - General Chief Complaint: Flank Pain Stated Complaint: FLANK PAIN Time Seen by Provider: 07/23/19 01:04 Mode of Arrival: Ambulatory Information source: Patient Notes: 28-year-old female presents emergency department with complaints of urinary frequency and decreased output with right-sided flank pain since Wednesday. She reports symptoms started approximately 1030 11:00 at night. She reports she has been unable to sleep that time. She does have a history of kidney stones with history of lithotripsy and renal surgery. She reports she thought she saw some tiny pieces in her urine but is not sure. She reports she recently lost her insurance so she is unable to follow-up with her urologist Dr. Fraire. Denies fever vomiting diarrhea. TRAVEL OUTSIDE OF THE [place] IN LAST 30 DAYS: No - HPI Onset: Other Onset/Duration: Persistent Quality of pain: Achy Pain Level: 4 Associated symptoms: None Exacerbated by: Denies Relieved by: Denies Similar symptoms previously: Yes Recently seen / treated by doctor: No - Related Data Allergies/Adverse Reactions: coconut Allergy (Verified 04/02/19 21:19) morphine Allergy (Verified 04/02/19 21:19) Past Medical History - General Information source: Patient Last Menstrual Period: june, denies - Social History Smoking Status: Current Every Day Smoker Cigarette use (# per day): Yes Chew tobacco use (# tins/day): No Frequency of alcohol use: None Drug Abuse: None 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 Denies: Hx Peritoneal Dialysis Psychiatric Medical History: Reports: Hx Attention Deficit Hyperactivity Disorder, Hx Bipolar Disorder Past Surgical History: Reports: Hx Kidney (Renal Surgery) - lithrotripsy, Hx Oral Surgery, Hx Urostomy, Other - Multiple urology intervention secondary to recurrent kidney stones - Immunizations Hx Diphtheria, Pertussis, Tetanus Vaccination: Yes Review of Systems - Review of Systems Notes: Review HPI for review of systems., All other systems negative Physical Exam - Vital signs Vitals: Temp Pulse Resp BP Pulse Ox 98.1 F 104 H 18 162/115 H 97 07/22/19 23:53 07/22/19 23:53 07/22/19 23:53 07/22/19 23:53 07/22/19 23:53 - General General appearance: Appears well, Alert In distress: None - HEENT Head: Normocephalic Eyes: Normal Conjunctiva: Normal Extraocular movements intact: Yes Neck: Normal, Supple. No: Lymphadenopathy - Respiratory Respiratory status: No respiratory distress Chest status: Nontender Breath sounds: Normal Chest palpation: Normal - Cardiovascular Rhythm: Regular - Abdominal Inspection: Normal Distension: No distension Bowel sounds: Normal Tenderness: Nontender Organomegaly: No organomegaly - Back Back: Normal, CVA tenderness - Right flank - Extremities General upper extremity: Normal color, Normal ROM General lower extremity: Normal color, Normal ROM - Neurological Neuro grossly intact: Yes Cognition: Normal Orientation: AAOx4 [place] Coma Scale Eye Opening: Spontaneous [place] Coma Scale Verbal: Oriented [place] Coma Scale Motor: Obeys Commands A[place] Coma Scale Total: 15 Speech: Normal - Psychological Associated symptoms: Normal affect, Normal mood - Skin Skin Temperature: Warm Skin Moisture: Dry Skin Color: Normal Course - Re-evaluation Re-evalutation: 07/23/19 01:51 Patient presents emergency department with right flank pain urinary frequency and decreased output for the last 4 days. History of kidney stones. Denies fever vomiting diarrhea. Recently lost her insurance unable to follow-up with her urologist. Labs renal ultrasound ordered Toradol and Flomax also ordered. 07/23/19 02:52 07/23/19 00:55 07/23/19 00:55 MCV 87 fl (80-97) 07/23/19 00:55 MCH 29.5 pg (27.0-33.4) 07/23/19 00:55 MCHC 33.7 g/dL (32.0-36.0) 07/23/19 00:55 RDW 12.6 % (11.5-14.0) 07/23/19 00:55 Seg Neutrophils % 56.2 % (42-78) 07/23/19 00:55 Chloride 104 mmol/L (98-107) 07/23/19 00:55 Carbon Dioxide 25 mmol/L (22-30) 07/23/19 00:55 Anion Gap 11 (5-19) 07/23/19 00:55 Est GFR ( Amer) > 60 (>60) 07/23/19 00:55 Glucose 103 mg/dL (75-110) 07/23/19 00:55 Calcium 9.7 mg/dL (8.4-10.2) 07/23/19 00:55 Total Bilirubin 0.4 mg/dL (0.2-1.3) 07/23/19 00:55 AST 17 U/L (14-36) 07/23/19 00:55 Alkaline Phosphatase 73 U/L (38-126) 07/23/19 00:55 Total Protein 7.2 g/dL (6.3-8.2) 07/23/19 00:55 Albumin 4.2 g/dL (3.5-5.0) 07/23/19 00:55 Lipase 86.7 U/L (23-300) 07/23/19 00:55 Serum HCG, Qual NEGATIVE (NEGATIVE) 07/23/19 00:55 Urine Color YELLOW 07/23/19 00:11 Urine Appearance CLOUDY 07/23/19 00:11 Urine pH 5.0 (5.0-9.0) 07/23/19 00:11 Ur Specific Castor 1.023 07/23/19 00:11 Urine Protein 30 mg/dL (NEGATIVE) H 07/23/19 00:11 Urine Glucose (UA) NEGATIVE mg/dL (NEGATIVE) 07/23/19 00:11 Urine Ketones NEGATIVE mg/dL (NEGATIVE) 07/23/19 00:11 Urine Blood LARGE (NEGATIVE) H 07/23/19 00:11 Urine Nitrite NEGATIVE (NEGATIVE) 07/23/19 00:11 Ur Leukocyte Esterase MODERATE (NEGATIVE) H 07/23/19 00:11 Urine WBC (Auto) 112 /HPF 07/23/19 00:11 Urine RBC (Auto) >182 /HPF 07/23/19 00:11 07/23/19 03:55 Urine shows UTI. Ultrasound with bilateral nonobstructing nephrolithiasis. Patient has been resting quietly in her bed reports pain is almost gone. Instructed on all results instructed on the importance of follow-up with the primary care provider or urologist for recheck within 1 week. She was instructed to return the emergency department for fever or increasing pain concerns. She verbalized understanding to all instructions. Renal Ultrasound 07/23/19 01:15 IMPRESSION: 1. Bilateral nonobstructing nephrolithiasis. 2. 2 cm cyst arising from the lower pole of the left kidney. 3. The visualized bladder is grossly unremarkable. Ureteral jets are not confirmed on this examination. - Vital Signs Vital signs: Temp Pulse Resp BP Pulse Ox 97.6 F 89 16 136/85 H 97 07/23/19 04:24 07/23/19 04:24 07/23/19 04:24 07/23/19 04:24 07/23/19 04:24 - Laboratory Result Diagrams: 07/23/19 00:55 07/23/19 00:55 Laboratory results interpreted by me: 07/23/19 07/23/19 07/23/19 00:11 00:55 00:55 WBC 10.8 H Est GFR (MDRD) Non-Af 52 L Urine Protein 30 H Urine Blood LARGE H Ur Leukocyte Esterase MODERATE H - Diagnostic Test Radiology reviewed: Image reviewed, Reports reviewed Discharge - Discharge Clinical Impression: Flank pain, UTI (urinary tract infection), Kidney stones Condition: Stable Disposition: HOME, SELF-CARE Instructions: Flank Pain ([facility]), Flomax ([facility]), Kidney Stone ([facility]), Nitrof urantoin ([facility]), Toradol Injection ([facility]), Urinary Tract Infection ([facility]) Additional Instructions: *You have been evaluated for pain, urinary frequency, UTI, kidney stones *Take medication as prescribed *Aloe up with the primary care provider or your urologist within 1 week *Return to ED for worsening condition, changes, needs, fever unable to void *Return to ED if not better in 24 hours Prescriptions: Tamsulosin HCl [Flomax 0.4 mg Cap.sr] 0.4 mg PO DAILY #7 cap.sr.24h Nitrofurantoin/Nitrofuran Mac [Macrobid 100 mg Capsule] 100 mg PO BID #20 c apsule Forms: Elevated Blood Pressure
--- NOTE | 2019-07-23 03:32 | RADIOLOGY REPORT (SQ) ---
EXAM: US RETROPERITONEUM limited CLINICAL DATA: 28-year-old female with flank pain and history of stones TECHNICAL DATA: Grayscale and Doppler ultrasound imaging of the retroperitoneum was performed to further evaluate the kidneys and bladder. Comparison: CT abdomen and pelvis performed on 04/02/2019.. FINDINGS: The right kidney measures 12.1 x 4.7 x 6.7 cm. The renal cortex is normal in echogenicity. There are multiple echogenic foci within the right kidney consistent with small stones. There is no evidence of hydronephrosis. No definite solid or cystic renal mass lesion or perinephric fluid collection is identified. The left kidney measures 10.9 x 5.1 x 4.9 cm. The renal cortex is normal in echogenicity.. There is a 2.1 x 2.4 x 2.5 cm anechoic mass arising from the lower pole of the left kidney consistent with a renal cyst. There are multiple echogenic foci within the left kidney consistent with nonobstructing renal calculi. The largest measures approximately 1 cm along the lateral cortex of the midpole. There is no evidence of hydronephrosis. No definite solid mass lesions or perinephric fluid collections are identified. The bladder is partially distended and smooth in contour. The bladder volume measures approximately 41.5 mL. The ureteral jets are not confirmed on this examination. The visualized abdominal aorta is normal in caliber and contour. The mid and distal aorta are obscured by bowel gas. IMPRESSION: 1. Bilateral nonobstructing nephrolithiasis. 2. 2 cm cyst arising from the lower pole of the left kidney. 3. The visualized bladder is grossly unremarkable. Ureteral jets are not confirmed on this examination.
[2019-07-23] MEDS ORDERED: NITROFURANTOIN MONOHYD/M-CRYST 100 MG CAPSULE PO ONE (03:57)
[2019-07-23 04:24] VITALS: BP 136/85
== END 2019-07-23 04:24 | disposition home or self-care (01) ==
LOC: ER 23:43
DX: N39.0 Urinary tract infection, site not specified (principal); N20.0 Calculus of kidney; Q61.01 Congenital single renal cyst; R10.9 Unspecified abdominal pain; J44.9 Chronic obstructive pulmonary disease, unspecified; F17.210 Nicotine dependence, cigarettes, uncomplicated; Z91.018 Allergy to other foods; Z88.5 Allergy status to narcotic agent
CPT/HCPCS: 36415; 83690; 84703; 85025; 80053; 81001; 76775; J1885; J8499; 96372; 99284